=== PATIENT | male | born 1960 | race Caucasian/White ===

== ENCOUNTER 2016-09-08 07:48 | Day surgery (SDC) | payer MEDICARE, MEDICAID ==
[~2016-09-08 07:48] MED LIST: Bupivacaine 0.5% 50 ML MDV ONE
[2016-09-08] MEDS ORDERED: Lactated Ringers 1,000 ML IV SCH (08:30)
[2016-09-08] MEDS ORDERED: ceFAZolin 2 GM in Sodium Chloride 0.9% 50 ML IV ONE (09:00)
[2016-09-08] MEDS ORDERED: ceFAZolin 2 GM in Premix Bag 1 BAG IV ONE (09:00)
[2016-09-08] MEDS ORDERED: Propofol 200 MG/20 ML SDV ONE (11:44)
[2016-09-08] MEDS ORDERED: Midazolam 1 MG/ML 2 ML SDV ONE (11:45)
[2016-09-08] MEDS ORDERED: fentaNYL 100 MCG/2 ML SDV ONE (11:45)
[2016-09-08] MEDS ORDERED: Lidocaine 0.5% 50 ML SDV ONE (11:47)
[2016-09-08] MEDS ORDERED: Povidone-Iodine 10% Soln 118.25 ML Bottle ONE (12:05)
--- NOTE | 2016-09-08 12:51 | OR ---
DATE OF PROCEDURE: 09/08/2016 PREOPERATIVE DIAGNOSIS: Right ring finger trigger finger. POSTOPERATIVE DIAGNOSIS: Right ring finger trigger finger. PROCEDURE: Right ring finger trigger finger release. ANESTHESIA: [place] block. FLUID: Lactated Ringer solution. ESTIMATED BLOOD LOSS: Zero. COMPLICATIONS: None. SPECIMEN: None. DISCHARGE DISPOSITION: Stable to PACU. HISTORY AND INDICATION FOR THE PROCEDURE: The patient was seen preoperatively in the clinic. Previously, he had another surgery performed, A1 julieta release of his right ring finger. He stated this really never worked and has continued to bother him. He would like to taken care of. Risks and benefits of the procedure were explained to the patient. Informed consent was obtained. DETAILS OF PROCEDURE: The patient was seen preoperatively by myself and the Anesthesia staff in the preoperative holding area, where the operative site was marked. He was brought to the operative suite, where [place] block was administered. The right upper extremity was then prepped and draped in a sterile manner. Time-out was called identifying the correct patient, correct procedure, correct site, and antibiotics were ran within appropriate period of time. An incision was made over the A1 julieta longitudinally for approximately 1 cm. Self-retaining retractor was then used. I then used the knife to incise the remaining portion of the A1 julieta, which was more distal and I used a Ragnell for visualization to make sure that all the julieta was released. We then pulled the tendon out of the wound using a Ragnell. We then copiously irrigated with saline and closed with 3-0 horizontal mattress suture followed by sterile dressing. The patient then had the [place] block released and was taken to the PACU in stable condition. Ke Rodriguez DO /[id number]
[2016-09-08 13:52] VITALS: BP 129/68
== END 2016-09-08 14:03 | disposition home or self-care (01) ==
LOC: JP.SDS 07:48
PROVIDERS: ATTEND Orthopaedic Surgery
DX: M65.341 Trigger finger, right ring finger (principal); I10 Essential (primary) hypertension; G47.30 Sleep apnea, unspecified; K21.9 Gastro-esophageal reflux disease without esophagitis; G89.29 Other chronic pain; M54.9 Dorsalgia, unspecified; M19.90 Unspecified osteoarthritis, unspecified site; F41.9 Anxiety disorder, unspecified; F32.9 Major depressive disorder, single episode, unspecified; E66.9 Obesity, unspecified; E53.8 Deficiency of other specified B group vitamins; K56.60 Unspecified intestinal obstruction; Z79.899 Other long term (current) drug therapy; Z79.891 Long term (current) use of opiate analgesic; Z79.52 Long term (current) use of systemic steroids; Z90.49 Acquired absence of other specified parts of digestive tract; Z68.30 Body mass index [BMI] 30.0-30.9, adult; Z98.890 Other specified postprocedural states
CPT/HCPCS: 26055; J0690; J2250; J2704; J3010; J7050; J7120

== ENCOUNTER 2016-12-21 06:03 | Day surgery (SDC) | payer MEDICARE, MEDICAID ==
[2016-12-21] MEDS ORDERED: Bupivacaine 0.5% 50 ML MDV ONE (06:56)
[2016-12-21] MEDS ORDERED: Lidocaine 1% with EPINEPHrine 1:100,000 50 ML MDV ONE (06:57)
[2016-12-21] MEDS ORDERED: Dextrose 5%-Lactated Ringers 1,000 ML IV SCH (07:00)
[2016-12-21] MEDS ORDERED: fentaNYL 100 MCG/2 ML SDV ONE (07:08)
[2016-12-21] MEDS ORDERED: Propofol 200 MG/20 ML SDV ONE (07:09)
[2016-12-21] MEDS ORDERED: Midazolam 1 MG/ML 2 ML SDV ONE (07:09)
[2016-12-21] MEDS ORDERED: ceFAZolin 2 GM in Premix Bag 1 BAG IV SCH (07:45)
[2016-12-21] MEDS ORDERED: ceFAZolin 2 GM in Premix Bag 1 BAG IV ONE (08:00)
[2016-12-21 09:17] VITALS: BP 115/69
--- NOTE | 2016-12-21 15:18 | OR ---
DATE OF PROCEDURE: 12/21/2016 PREOPERATIVE DIAGNOSIS: Nodule posterior aspect of right elbow. POSTOPERATIVE DIAGNOSES: 1. Subfascial nodule of right elbow. 2. Hematoma adjacent to nodule of right elbow. OPERATIVE PROCEDURES: 1. Excision of subfascial nodule of right elbow (64453). 2. Drainage of hematoma adjacent to nodule of right elbow (24577). ANESTHESIA: IV sedation plus local. INDICATION FOR PROCEDURE: This is a 56-year-old presenting with some increasingly uncomfortable nodule located over the point of his right elbow. Plan is to proceed with excision of this. Potential risks including bleeding, infection, possible recurrence of the process were reviewed, and the patient wishes to proceed. DETAILS OF PROCEDURE: The patient was taken to the operating room and placed in supine position. After IV sedation was administered, the right forearm, elbow, and upper arm were prepped and draped with the elbow held in a flexed position. The area was anesthetized with 1% lidocaine mixed with Marcaine. Elliptical incision removing a thin layer of the overlying skin was then made and carried down through the skin and subcutaneous tissue. The plane of the nodule could be below the plane of the continuation of the muscular fascia. This was incised and roughly 1 cm nodule was then excised. This had associated with it a 6 mm hematoma as well, which was drained and excised along with the nodule. At that point, no further pathology appeared to be present. The area was closed with some 3-0 Vicryl stitch deep and then 5-0 Prolene skin stitch. Dressing was applied. The patient was taken to the recovery room in a satisfactory condition. Jose Rodriguez MD /[id number]
== END 2016-12-21 09:24 | disposition home or self-care (01) ==
LOC: JP.SDS 06:03
PROVIDERS: ATTEND Surgery
DX: D18.09 Hemangioma of other sites (principal); I10 Essential (primary) hypertension; G47.30 Sleep apnea, unspecified; K21.9 Gastro-esophageal reflux disease without esophagitis; F32.9 Major depressive disorder, single episode, unspecified; E66.9 Obesity, unspecified; Z90.49 Acquired absence of other specified parts of digestive tract; Z98.84 Bariatric surgery status; Z91.09 Other allergy status, other than to drugs and biological substances; F17.210 Nicotine dependence, cigarettes, uncomplicated; Z98.890 Other specified postprocedural states; Z68.30 Body mass index [BMI] 30.0-30.9, adult
CPT/HCPCS: 23930; 24076; 88305; J0690; J2250; J2704; J3010; J7042

== ENCOUNTER 2017-03-31 06:11 | Day surgery (SDC) | payer MEDICARE, MEDICAID ==
[~2017-03-31 06:11] MED LIST changes: -Bupivacaine 0.5% 50 ML MDV ONE; +Lactated Ringers 1,000 ML IV SCH
[2017-03-31] MEDS ORDERED: ceFAZolin 2 GM in Premix Bag 1 BAG IV ONE (06:30)
[2017-03-31] MEDS ORDERED: Povidone-Iodine 10% Soln 118.25 ML Bottle ONE (06:41)
[2017-03-31] MEDS ORDERED: Bupivacaine 0.5%/EPINEPHrine 1:200,000 50 ML MDV ONE (06:41)
[2017-03-31] MEDS ORDERED: Bupivacaine 0.5% 30 ML SDV ONE ×2 (08:41)
[2017-03-31] MEDS ORDERED: Midazolam 1 MG/ML 2 ML SDV ONE (08:44)
[2017-03-31] MEDS ORDERED: fentaNYL 250 MCG/5 ML SDV ONE (08:44)
[2017-03-31] MEDS ORDERED: Ondansetron 4 MG/2 ML SDV ONE (08:45)
[2017-03-31] MEDS ORDERED: Propofol 200 MG/20 ML SDV ONE (08:45)
[2017-03-31] MEDS ORDERED: Neostigmine Methylsulfate 1 MG/ML 5 ML Syringe ONE (08:45)
[2017-03-31] MEDS ORDERED: Succinylcholine 200 MG/10 ML MDV ONE (08:45)
[2017-03-31] MEDS ORDERED: Dexamethasone 4 MG/ML SDV ONE (08:45)
[2017-03-31] MEDS ORDERED: Glycopyrrolate 0.2 MG/ML 5 ML MDV ONE (08:45)
[2017-03-31] MEDS ORDERED: Rocuronium 50 MG/5 ML Vial ONE (08:45)
[2017-03-31] MEDS ORDERED: Lactated Ringers 1,000 ML ONE (12:10)
[2017-03-31] MEDS ORDERED: ePHEDrine 50 MG/ML SDV ONE (12:36)
[2017-03-31] MEDS ORDERED: EPINEPHrine 1 MG/ML SDV ONE (13:49)
[2017-03-31] MEDS ORDERED: Ketorolac 60 MG/2 ML SDV IM ONE (14:30)
--- NOTE | 2017-03-31 14:35 | OR ---
DATE OF PROCEDURE: 03/31/2017 PREOPERATIVE DIAGNOSES: Left shoulder impingement and rotator cuff tear, bicipital tendinitis, and synovitis. POSTOPERATIVE DIAGNOSES: Left shoulder impingement and rotator cuff tear, bicipital tendinitis, and synovitis. PROCEDURE: Left shoulder arthroscopy with subacromial decompression, partial synovectomy, and mini open rotator cuff repair. LEAN SIX SIGMA SENIOR SPECIALIST: LEON Skinner Physician school health assistant, Megan Piper NP, played an essential role in assisting in this case, helping to position the patient, retract structures as needed, as well as suturing and cutting sutures as indicated. Her presence improved patient's safety and decreased operative time. ANESTHESIA: General endotracheal intubation plus interscalene block on the left. COMPLICATIONS: None. SPECIMEN: None. DISCHARGE DISPOSITION: Stable to PACU. FLUID: Lactated Ringer's solution. ESTIMATED BLOOD LOSS: 25 mL. INDICATIONS: The patient is well known to me. He works for the hospital. He had failed nonoperative treatment of left shoulder pain and an MRI confirmed the above-mentioned diagnosis. Risks and benefits of the procedure were explained to the patient and informed consent was obtained. DESCRIPTION OF PROCEDURE: The patient was seen preoperatively by myself and the Anesthesia staff in the preop holding area where, the operative site was marked. He was brought to the operative suite by the Anesthesia staff, where general anesthesia was administered. He was placed into a beach-chair position. All extremities were found to be well padded. The patient was then prepped and draped in a sterile manner. Time-out was called identifying the correct patient, correct procedure, the correct site, and antibiotics had begun within appropriate period of time. Posterior portal was then made. I entered the joint. He had a massive rotator cuff tear with severe retraction. He also had bicipital tendinitis. I used a spinal needle placed my anterior portal and then entered it and then did partial debridement of the biceps tendon with a shaver and ablation unit and then did partial synovectomy due to the synovitis that was present. I then removed my arthroscope and then entered the subacromial space, very little bursitis was present. I did use a shaver to remove part of the bursa and delineate the acromion. He had a type 2 acromion. I then used an ablation unit to delineate this and then used a harris to remove the hook of the acromion and then used an ablation unit to close, take care of little bit of bleeding. I then removed as much fluid as I could from the joint and then re-prepped using chlorhexidine and then made an incision approximately 5 cm from the distal tip of the anterior acromion and then went through the anterior raphae through the anterior and middle bellies of the deltoid. Bleeding during that portion of the case was controlled with Bovie electrocautery. I used a Gelpi for retraction. It was obvious at that point that Mr. Polk had a massive rotator cuff tear involving the supraspinatus and infraspinatus only part of the teres major was still attached posteriorly. I used 2 different anchors with both pulled out. I believe the patient had poor bone secondary to previous gastric bypass surgery. I then under drilled then used a JuggerKnot anchor and started pulling the cuff anteriorly. I used a suture passer as well as passed with the needles attached. I then placed another JuggerKnot anchor just for more security and could not really bring it any further anterior, but then tied my ends together. There was a fairly large Knot stack, but I believe that the risks of pullout way greater than the risk of irritation from the Knot stack. We then copiously irrigated with saline and then closed with a Stratafix and 3-0 nylon and then placed a sterile dressing. The patient was then transferred to his hospital bed and then placed him into an abduction pillow brace, and taken to the PACU in stable condition. Ke Rodriguez DO /[id number]
[2017-03-31 15:49] VITALS: BP 111/70
== END 2017-03-31 15:25 | disposition home or self-care (01) ==
LOC: JP.SDS 06:11
PROVIDERS: ATTEND Orthopaedic Surgery
DX: M75.42 Impingement syndrome of left shoulder (principal); M75.102 Unspecified rotator cuff tear or rupture of left shoulder, not specified as traumatic; I10 Essential (primary) hypertension; F17.210 Nicotine dependence, cigarettes, uncomplicated; M75.22 Bicipital tendinitis, left shoulder; E66.9 Obesity, unspecified; Z68.30 Body mass index [BMI] 30.0-30.9, adult; H54.7 Unspecified visual loss; K21.9 Gastro-esophageal reflux disease without esophagitis; K80.20 Calculus of gallbladder without cholecystitis without obstruction; E53.8 Deficiency of other specified B group vitamins; G89.29 Other chronic pain; M54.9 Dorsalgia, unspecified; M19.90 Unspecified osteoarthritis, unspecified site; F32.9 Major depressive disorder, single episode, unspecified; Z79.899 Other long term (current) drug therapy; Z90.89 Acquired absence of other organs; Z91.048 Other nonmedicinal substance allergy status; Z97.4 Presence of external hearing-aid
CPT/HCPCS: 29820; 29826; 29827; J0171; J0690; J1100; J1885; J2250; J2405; J2704; J2710; J3010; J7120; 27328; 29822; C1713; J0330

== ENCOUNTER 2018-04-03 09:23 | Emergency (ER) | payer MEDICARE, MEDICAID ==
[2018-04-03 09:53] VITALS: BP 163/89
--- NOTE | 2018-04-03 11:09 | EDM.PDOC ---
ED HPI GENERAL MEDICAL PROBLEM - General Chief Complaint: Eye Problems Stated Complaint: HEADACH ABOVE THE RIGHT EYE Time Seen by Provider: 04/03/18 11:08 Source of Information: Reports: Patient History Limitations: Reports: No Limitations - History of Present Illness INITIAL COMMENTS - FREE TEXT/NARRATIVE: pt arrived with pain behind his left eye. This has affected his vision at times. He states this started about 3 days ago. Onset: Gradual, Other (last 3 days. ) Duration: Hour(s): Location: Reports: Face Associated Symptoms: Reports: Headaches, Other (pt has pain behind the left eye. ) Left Eye Pain Score (Numeric/FACES): 8 - Related Data Allergies Allergy/AdvReac Type Severity Reaction Status Date / Time zinc oxide Allergy Rash Verified 04/03/18 10:05 foam tape Allergy Rash Uncoded 04/03/18 10:05 Home Meds: Home Meds Ca Citrate/Mgox/Vit D3/B6/Min [Calcium Citrate Plus Tablet] 1 each PO BID [History] Cyanocobalamin (Vitamin B-12) [B-12] 2,500 mcg SL DAILY 12/22/13 [History] Omeprazole [Prilosec] 20 mg PO DAILY 12/22/13 [History] Ped Multivit #17/Iron Fumarate [Pv Kids Vitamins+Iron Tab Chew] 1 tab PO BID [History] Cyanocobalamin (Vitamin B12) [Vitamin B12] 1,000 mcg IM Q30D 05/03/14 [History] Cholecalciferol (Vitamin D3) [Vitamin D] 2,500 units PO DAILY 05/09/15 [History] Ascorbic Acid [Vitamin C] 1,000 mg PO BID 03/19/16 [History] Citalopram Hydrobromide [Celexa] 40 mg PO DAILY 03/19/16 [History] Ergocalciferol (Vitamin D2) [Vitamin D] 2,500 unit PO DAILY 03/19/16 [History] Hydrocodone/Acetaminophen [[place]elope 10-325] 1 - 2 tab PO Q12H PRN 09/04/16 [History ] Vitamin B Complex 1 tab PO DAILY 09/04/16 [History] Celecoxib 200 mg PO DAILY 03/08/17 [History] Melatonin 10 mg PO BEDTIME 02/09/18 [History] Past Medical History - Past Health History Medical/Surgical History: Denies Medical/Surgical History HEENT History: Reports: Hard of Hearing, Impaired Vision Other HEENT History: wears glasses and hearing aides broken jaw Cardiovascular History: Reports: Heart Murmur, Hypertension, SOB on Exertion Other Cardiovascular History: hypertension resolved with RNY surgery 4 years ago Respiratory History: Reports: Intubation, Previous, Sleep Apnea Other Respiratory History: no trouble with sleep apnea after RNY surgery. Gastrointestinal History: Reports: Bowel Obstruction, Cholelithiasis, GERD Genitourinary History: Reports: Other (See Below) Other Genitourinary History: after appendectomy kidney infection Musculoskeletal History: Reports: Back Pain, Chronic, Gout, Osteoarthritis, Other (See Below) Other Musculoskeletal History: s/p lt rotator cuff repair Neurological History: Reports: Concussion Psychiatric History: Reports: Depression Endocrine/Metabolic History: Reports: Obesity/BMI 30+, Vitamin D Deficiency Other Endocrine/Metabolic History: blood sugar high at times before gastric bypass Hematologic History: Reports: B12 Deficiency Dermatologic History: Reports: Psoriasis, Other (See Below) Other Dermatologic History: psoriasis resolved after weight loss - Infectious Disease History Infectious Disease History: Reports: Chicken Pox - Past Surgical History HEENT Surgical History: Reports: Oral Surgery GI Surgical History: Reports: Appendectomy, Bariatric Procedure, Cholecystectomy , Colonoscopy, Hernia, Abdominal, Small Bowel Male Surgical History: Reports: None Neurological Surgical History: Reports: None Musculoskeletal Surgical History: Reports: Other (See Below) Other Musculoskeletal Surgeries/Procedures:: trigger finger repair. repair rotator cuff Social & Family History - Tobacco Use Smoking Status *Q: Current Every Day Smoker Years of Tobacco use: 30 Packs/Tins Daily: 0.5 - Caffeine Use Caffeine Use: Reports: Coffee, Energy Drinks - Recreational Drug Use Recreational Drug Use: No - Living Situation & Occupation Living situation: Reports: Single ED ROS GENERAL - Review of Systems Review Of Systems: See Below Constitutional: Reports: No Symptoms HEENT: Reports: Other (tender over the left mxillary sinus. ) Respiratory: Reports: No Symptoms Cardiovascular: Reports: No Symptoms Endocrine: Reports: No Symptoms GI/Abdominal: Reports: No Symptoms : Reports: No Symptoms Musculoskeletal: Reports: No Symptoms Skin: Reports: No Symptoms ED EXAM GENERAL W FULL EYE - Physical Exam Exam: See Below Text/Narrative:: pt has pain over the left maxillary sinus and ccasionally he is getting blurring of the vision in the left eye. Exam Limited By: No Limitations General Appearance: Alert, Mild Distress, Other ( vision check is good. ) Ears: Normal TMs Nose: Normal Inspection Throat/Mouth: Normal Inspection Head: Atraumatic Neck: Normal Inspection Respiratory/Chest: No Respiratory Distress Cardiovascular: Normal Peripheral Pulses (Male) Exam: Deferred (Female) Exam: Deferred Rectal (Males) Exam: Deferred Rectal (Female) Exam: Deferred Back Exam: Normal Inspection Extremities: Normal Inspection Course - Vital Signs Last Recorded V/S: Last Vital Signs Temp 35.5 C 04/03/18 09:53 Pulse 68 04/03/18 09:53 Resp 14 04/03/18 09:53 BP 163/89 H 04/03/18 09:53 Pulse Ox 96 04/03/18 09:53 - Orders/Labs/Meds Labs: Laboratory Tests 04/03/18 04/03/18 Range/Units 10:43 10:43 WBC 7.1 (4.5-11.0) K/uL RBC 5.05 (4.30-5.90) M/uL Hgb 14.2 (12.0-15.0) g/dL Hct 45.0 (40.0-54.0) % MCV 89 (80-98) fL MCH 28 (27-31) pg MCHC 32 (32-36) % Plt Count 232 (150-400) K/uL Neut % (Auto) 63 (36-66) % Lymph % (Auto) 23 L (24-44) % Dougherty % (Auto) 11 H (2-6) % Eos % (Auto) 2 (2-4) % Baso % (Auto) 0 (0-1) % C-Reactive Protein 0.30 (0.0-0.3) mg/dL Meds: Medications Discontinued Medications Generic Name Dose Route Start Last Admin Trade Name Freq PRN Reason Stop Dose Admin Ceftriaxone Sodium 1 gm/ 0 gm 04/03/18 12:22 04/03/18 12:34 Lidocaine HCl 2.1 ml IM 04/03/18 12:23 1 inj ONETIME ONE Administration - Re-Assessments/Exams Free Text/Narrative Re-Assessment/Exam: 04/03/18 12:30 pt had a castro view which did not have any fluid levels. He had a cat scan of the head which was neg. Will treat as a sinusitis. Departure - Departure Time of Disposition: 12:24 Disposition: Home, Self-Care 01 Condition: Fair Clinical Impression: Left maxillary sinusitis - Discharge Information Instructions: Sinusitis, Adult Referrals: Kenan Soliz MD [Primary Care Provider] - Forms: ED Department Discharge Care Plan Goals: cool mist humidifier, augmentin 875 bid, rtc if increased symptoms. use yogurt or probiotic while on the antibiotic.
[2018-04-03] MEDS ORDERED: cefTRIAXone 1 GM, Lidocaine 1% 2.1 ML IM ONE ×2 (12:22)
--- NOTE | 2018-04-04 13:02 | CR ---
Dorman' view The paranasal sinuses demonstrate normal aeration. There is no consolidation. There is no mucosal thickening. Impression: 1. Negative exam.
== END 2018-04-03 13:00 | disposition home or self-care (01) ==
LOC: JP.ED 09:23
DX: J32.0 Chronic maxillary sinusitis (principal); I10 Essential (primary) hypertension; F32.9 Major depressive disorder, single episode, unspecified; E66.9 Obesity, unspecified; L40.9 Psoriasis, unspecified; F17.210 Nicotine dependence, cigarettes, uncomplicated; Z88.8 Allergy status to other drugs, medicaments and biological substances; Z79.899 Other long term (current) drug therapy
CPT/HCPCS: 36415; 70210; 70450; 85025; 86140; 96372; 99285; J0696

== ENCOUNTER 2018-07-28 10:27 | Emergency (ER) | payer MEDICARE, MEDICAID ==
[2018-07-28 10:43] VITALS: BP 135/98
--- NOTE | 2018-07-28 11:01 | EDM.PDOC ---
ED HPI GENERAL MEDICAL PROBLEM - General Chief Complaint: Skin Complaint Stated Complaint: INFECTED RING FINGER Time Seen by Provider: 07/28/18 10:45 Source of Information: Reports: Patient, Old Records, RN History Limitations: Reports: No Limitations - History of Present Illness INITIAL COMMENTS - FREE TEXT/NARRATIVE: 58 yo male accidentally punctured his L ring finger while working on his car 2 days ago. Now the finger in the area of the puncture is slightly swollen. He has been soaking it and apply hydrogen peroxide. Onset: Sudden Onset Date: 07/26/18 Duration: Day(s): (2), Getting Worse Location: Reports: Upper Extremity, Left Quality: Reports: Dull Severity: Mild Improves with: Reports: Rest Worsens with: Reports: Other (touching it), Movement Context: Reports: Trauma Associated Symptoms: Reports: No Other Symptoms Treatments KENNEL MANAGER: Reports: Other (see below) (See HPI) - Related Data Allergies Allergy/AdvReac Type Severity Reaction Status Date / Time zinc oxide Allergy Rash Verified 06/15/18 11:35 foam tape Allergy Rash Uncoded 06/15/18 11:35 Home Meds: Home Meds Ca Citrate/Mgox/Vit D3/B6/Min [Calcium Citrate Plus Tablet] 1 each PO BID [History] Cyanocobalamin (Vitamin B-12) [B-12] 2,500 mcg SL DAILY 12/22/13 [History] Omeprazole [Prilosec] 20 mg PO DAILY 12/22/13 [History] Ped Multivit #17/Iron Fumarate [Pv Kids Vitamins+Iron Tab Chew] 1 tab PO BID [History] Cyanocobalamin (Vitamin B12) [Vitamin B12] 1,000 mcg IM Q30D 05/03/14 [History] Cholecalciferol (Vitamin D3) [Vitamin D] 2,500 units PO DAILY 05/09/15 [History] Ascorbic Acid [Vitamin C] 1,000 mg PO BID 03/19/16 [History] Citalopram Hydrobromide [Celexa] 40 mg PO DAILY 03/19/16 [History] Ergocalciferol (Vitamin D2) [Vitamin D] 2,500 unit PO DAILY 03/19/16 [History] Hydrocodone/Acetaminophen [[place] 10-325] 1 - 2 tab PO Q12H PRN 09/04/16 [History ] Vitamin B Complex 1 tab PO DAILY 09/04/16 [History] Cephalexin [Keflex] 500 mg PO QID #30 capsule 07/28/18 [Rx] Lisinopril 2.5 mg PO DAILY 07/28/18 [History] Past Medical History - Past Health History Medical/Surgical History: Denies Medical/Surgical History HEENT History: Reports: Hard of Hearing, Impaired Vision Other HEENT History: wears glasses and hearing aides broken jaw Cardiovascular History: Reports: Heart Murmur, Hypertension, SOB on Exertion Other Cardiovascular History: hypertension resolved with RNY surgery 4 years ago Respiratory History: Reports: Intubation, Previous, Sleep Apnea Other Respiratory History: no trouble with sleep apnea after RNY surgery. Gastrointestinal History: Reports: Bowel Obstruction, Cholelithiasis, GERD Genitourinary History: Reports: Other (See Below) Other Genitourinary History: after appendectomy kidney infection Musculoskeletal History: Reports: Back Pain, Chronic, Gout, Osteoarthritis, Other (See Below) Other Musculoskeletal History: left shoulder pain. s/p lt rotator cuff repair Neurological History: Reports: Concussion Psychiatric History: Reports: Depression Endocrine/Metabolic History: Reports: Obesity/BMI 30+, Vitamin D Deficiency Other Endocrine/Metabolic History: blood sugar high at times before gastric bypass Hematologic History: Reports: B12 Deficiency Immunologic History: Reports: None Oncologic (Cancer) History: Reports: None Dermatologic History: Reports: Psoriasis, Other (See Below) Other Dermatologic History: psoriasis resolved after weight loss - Infectious Disease History Infectious Disease History: Reports: Chicken Pox - Past Surgical History Head Surgeries/Procedures: Reports: None HEENT Surgical History: Reports: Oral Surgery Cardiovascular Surgical History: Reports: None Respiratory Surgical History: Reports: None GI Surgical History: Reports: Appendectomy, Bariatric Procedure, Cholecystectomy , Colonoscopy, Hernia, Abdominal, Small Bowel Male Surgical History: Reports: None Endocrine Surgical History: Reports: None Neurological Surgical History: Reports: None Musculoskeletal Surgical History: Reports: Other (See Below) Other Musculoskeletal Surgeries/Procedures:: trigger finger repair. repair rotator cuff Dermatological Surgical History: Reports: None Social & Family History - Tobacco Use Smoking Status *Q: Unknown Ever Smoked - Caffeine Use Caffeine Use: Reports: Soda - Living Situation & Occupation Living situation: Reports: Single ED ROS GENERAL - Review of Systems Review Of Systems: See Below Constitutional: Reports: No Symptoms Musculoskeletal: Reports: Hand Pain (L ring finger pain) Skin: Reports: Erythema (proximal phalanx of the L ring finger), Wound ( puncture to the proximal L ring finger) Neurological: Reports: No Symptoms ED EXAM, SKIN/RASH Exam: See Below Exam Limited By: No Limitations General Appearance: Alert, WD/WN, No Apparent Distress, Obese Extremities: Pedal Edema (slight swelling of the proximal L ring finger), Increased Warmth (proximal L ring finger), Redness (proximal L ring finger). No : No Pedal Edema Neurological: Alert, Oriented, CN II-XII Intact, Normal Cognition, No Motor/ Sensory Deficits Skin: Wound/Incision (puncture to the prox. L ring finger) Location, Skin: Upper Extremity, Left Characteristics: Erythematous Associated features: Warmth, Tenderness. No: Lymphangitis Lymphatic: No Adenopathy Course - Vital Signs Last Recorded V/S: Last Vital Signs Temp 37.1 C 07/28/18 10:48 Pulse 85 07/28/18 10:48 Resp 16 07/28/18 10:48 BP 135/98 H 07/28/18 10:48 Pulse Ox 99 07/28/18 10:48 Departure - Departure Time of Disposition: 11:10 Disposition: Home, Self-Care 01 Condition: Fair Clinical Impression: Finger infection - Discharge Information *PRESCRIPTION DRUG MONITORING PROGRAM REVIEWED*: No *COPY OF PRESCRIPTION DRUG MONITORING REPORT IN PATIENT YANCY: No Prescriptions: Cephalexin [Keflex] 500 mg PO QID #30 capsule Referrals: Kenan Soliz MD [Primary Care Provider] - Additional Instructions: Continue your present cares. Add cephalexin as directed. Take acetaminophen as needed for pain relief. Recheck in the clinic by the end of the day tomorrow.
== END 2018-07-28 11:06 | disposition home or self-care (01) ==
LOC: JP.ED 10:27
DX: S61.235A Puncture wound without foreign body of left ring finger without damage to nail, initial encounter (principal); L08.9 Local infection of the skin and subcutaneous tissue, unspecified; I10 Essential (primary) hypertension; Z88.8 Allergy status to other drugs, medicaments and biological substances; Z79.899 Other long term (current) drug therapy; X58.XXXA Exposure to other specified factors, initial encounter
CPT/HCPCS: 99282

== ENCOUNTER → 2018-08-01 | Day surgery (SDC) | payer MEDICARE, MEDICAID ==
[~2018-08-01] MED LIST changes: +Bupivacaine 0.5% 50 ML MDV ONE; +Dexamethasone 4 MG/ML SDV ONE; +Glycopyrrolate 0.2 MG/ML 5 ML MDV ONE; -Lactated Ringers 1,000 ML IV SCH; +Lactated Ringers 1,000 ML ONE; +Neostigmine Methylsulfate 1 MG/ML 5 ML Syringe ONE; +Ondansetron 4 MG/2 ML SDV ONE; +Propofol 200 MG/20 ML SDV ONE; +Rocuronium 50 MG/5 ML Vial ONE; +Succinylcholine 200 MG/10 ML MDV ONE; +fentaNYL 250 MCG/5 ML SDV ONE
[2018-08-01] MEDS: Nozin Nasal Sanitizer NASBOTH ONE (06:11)
[2018-08-01] MEDS: Lactated Ringers 1,000 ML IV SCH (06:11)
[2018-08-01] MEDS: ceFAZolin 2 GM in Premix Bag 1 BAG IV ONE (07:45)
[2018-08-01] MEDS: Acetaminophen/oxyCODONE 325-5 MG Tab PO ONE (10:52)
[2018-08-01 10:53] VITALS: BP 141/84
--- NOTE | 2018-08-02 12:26 | OR ---
DATE OF PROCEDURE: 08/01/2018 PREOPERATIVE DIAGNOSIS: Large chronic rotator cuff tear, left shoulder. POSTOPERATIVE DIAGNOSIS: Massive chronic rotator cuff tear, left shoulder. PROCEDURE: Open partial repair, infraspinatus, left rotator cuff. ANESTHESIA: General with interscalene block. INDICATIONS: Mr. Polk is a 58-year-old gentleman with a history of progressive pain and weakness in his left shoulder and arm. He has a history of a previous large rotator cuff tear that was repaired. This repair went on to fail. He has had persistent difficulty with any kind of overhead reaching or lifting. MRI did reveal a large tear with retraction. There did appear however to be some cuff remaining that may be repairable. He is aware that this is difficult procedure with a high failure rate. Risks, benefits, and potential complications of the procedure were discussed at some length. He wished to proceed. DESCRIPTION OF PROCEDURE: After adequate anesthesia was obtained, the patient was placed supine in a modified beach-chair position. The left arm and shoulder were then prepped and draped in a sterile fashion. A previous lateral incision was utilized and carried down through the subcutaneous tissues. Small subcutaneous flaps were created anteriorly and posteriorly. The raphae of the deltoid muscle was identified and split in line with its fibers. The deltoid was detached for a short distance from the acromion. Subacromial space was entered. This revealed a massive tear of the rotator cuff. A free piece of suture was identified on the greater tuberosity. The posterior limb of the cuff consisting of the infraspinatus was identified, which had a suture knot at the end. Biceps tendon was found to be intact. The anterior leaf and portions of the supraspinous tendon were completely retracted back to the glenoid rim and beyond. There was no adequate tissue anteriorly to mobilize. After mobilizing the posterior portion, it was determined that at least a partial repair could be accomplished providing some coverage for the humeral head. The superior surface of the tuberosity was roughened with a rongeur. Two Mitek Healix suture anchors were placed. The humerus was externally rotated slightly beyond neutral, and the cuff was mobilized anteriorly and all 4 limbs of the posterior suture anchor were then brought up through the tendon. A separate suture of FiberWire was placed in a locking fashion in the edge of the tendon and used for retraction and positioning. The 4 limbs of the anterior suture anchor were then brought through the edge of the tendon. The sutures were then tied. This did provide some coverage of the posterior humeral head and the tuberosity just up to the biceps groove. The 2 suture limbs from the FiberWire stitch were utilized along with one set of sutures from the posterior suture anchor. The remaining 2 sets of sutures were cut. Awl was used to make a tunnel for a knotless anchor off the edge of the acromion. The limbs from the posterior suture and the free suture in the edge of the tendon were then brought through the anchor, and the anchor was secured into the tuberosity providing a suture bridge and a double-row repair. All sutures were then cut. The arm was then taken through range of motion and determined that moderate tension was on the repair with the arm in full internal rotation, but minimal tension was present with the arm at approximately 30 degrees of internal rotation, which is approximately the position it would set on the sling shot sling. It was irrigated. Small portion of the lateral edge of the acromion was debrided with a rongeur to further aid in decompression, and the deltoid was then repaired in a [id number] fashion with 0 Vicryl. The skin was closed with 2-0 Vicryl and a running 3-0 Monocryl. Steri-Strips were applied. Sterile dressing was then placed. The patient tolerated the procedure. There were no complications. He was taken from the operating room in a stable condition. Sammy Anderson MD /[id number] [facility]
== END ==
LOC: JP.SDS 05:38
PROVIDERS: ATTEND Specialist
DX: M75.102 Unspecified rotator cuff tear or rupture of left shoulder, not specified as traumatic (principal); I10 Essential (primary) hypertension; F41.9 Anxiety disorder, unspecified; F17.200 Nicotine dependence, unspecified, uncomplicated; L40.9 Psoriasis, unspecified; E66.01 Morbid (severe) obesity due to excess calories; Z68.41 Body mass index [BMI] 40.0-44.9, adult; Z88.1 Allergy status to other antibiotic agents; Z98.84 Bariatric surgery status; Z91.048 Other nonmedicinal substance allergy status; Z79.899 Other long term (current) drug therapy
CPT/HCPCS: 23412; 36415; 80048; 85027; A9270; C1713; J0330; J0690; J1100; J2405; J2704; J2710; J3010; J3490; J7120

== ENCOUNTER 2018-09-10 22:18 | Emergency (ER) | payer MEDICARE, MEDICAID ==
[2018-09-10 22:36] VITALS: BP 146/84
--- NOTE | 2018-09-10 23:24 | EDM.PDOC ---
ED HPI GENERAL MEDICAL PROBLEM - General Chief Complaint: Bite:Animal, Insect Stated Complaint: BUG BITE LEFT HIP Time Seen by Provider: 09/10/18 23:11 Source of Information: Reports: Patient History Limitations: Reports: No Limitations - History of Present Illness INITIAL COMMENTS - FREE TEXT/NARRATIVE: He was bitten or stung by something while mowing grass yesterday. This morning he noticed a little bit he red manfred to the lateral side of his left thigh. Tonight it is become a large warm red area it's firm and the middle. When the bite happened he said it was a sudden sharp stinging feeling he felt. He does not think it was a tick. Left Hip Pain Score (Numeric/FACES): 4 - Related Data Allergies Allergy/AdvReac Type Severity Reaction Status Date / Time zinc oxide Allergy Rash Verified 09/10/18 22:56 foam tape Allergy Rash Uncoded 09/10/18 22:56 Home Meds: Home Meds Ca Citrate/Mgox/Vit D3/B6/Min [Calcium Citrate Plus Tablet] 1 each PO BID [History] Cyanocobalamin (Vitamin B-12) [B-12] 2,500 mcg SL DAILY 12/22/13 [History] Omeprazole [Prilosec] 20 mg PO BID 12/22/13 [History] Ped Multivit #17/Iron Fumarate [Pv Kids Vitamins+Iron Tab Chew] 1 tab PO BID [History] Cyanocobalamin (Vitamin B12) [Vitamin B12] 1,000 mcg IM Q30D 05/03/14 [History] Cholecalciferol (Vitamin D3) [Vitamin D] 2,500 units PO DAILY 05/09/15 [History] Ascorbic Acid [Vitamin C] 1,000 mg PO BID 03/19/16 [History] Citalopram Hydrobromide [Celexa] 40 mg PO DAILY 03/19/16 [History] Ergocalciferol (Vitamin D2) [Vitamin D] 2,500 unit PO DAILY 03/19/16 [History] Hydrocodone/Acetaminophen [[place] 10-325] 1 - 2 tab PO Q12H PRN 09/04/16 [History ] Vitamin B Complex 1 tab PO DAILY 09/04/16 [History] Lisinopril 5 mg PO DAILY 07/28/18 [History] Cephalexin [Keflex] 500 mg PO Q6HR 08/01/18 [History] Sulfamethoxazole/Trimethoprim [Septra DS] 1 tab PO BID 08/01/18 [History] oxyCODONE HCl/Acetaminophen [Percocet 5-325 mg Tablet] 1 each PO Q6HR PRN #36 tablet 08/09/18 [Rx] oxyCODONE HCl/Acetaminophen [Percocet 5-325 mg Tablet] 1 each PO Q6HR PRN #36 tablet 09/01/18 [Rx] Past Medical History - Past Health History Medical/Surgical History: Denies Medical/Surgical History HEENT History: Reports: Hard of Hearing, Impaired Vision Other HEENT History: wears glasses and hearing aides broken jaw Cardiovascular History: Reports: Heart Murmur, Hypertension, SOB on Exertion Other Cardiovascular History: hypertension resolved with RNY surgery 4 years ago Respiratory History: Reports: Intubation, Previous, Sleep Apnea Other Respiratory History: no trouble with sleep apnea after RNY surgery. Gastrointestinal History: Reports: Bowel Obstruction, Cholelithiasis, GERD Genitourinary History: Reports: Other (See Below) Other Genitourinary History: after appendectomy kidney infection Musculoskeletal History: Reports: Back Pain, Chronic, Gout, Osteoarthritis, Other (See Below) Other Musculoskeletal History: left shoulder pain. s/p lt rotator cuff repair Neurological History: Reports: Concussion Psychiatric History: Reports: Depression Endocrine/Metabolic History: Reports: Obesity/BMI 30+, Vitamin D Deficiency Other Endocrine/Metabolic History: blood sugar high at times before gastric bypass Hematologic History: Reports: B12 Deficiency Immunologic History: Reports: None Oncologic (Cancer) History: Reports: None Dermatologic History: Reports: Psoriasis, Other (See Below) Other Dermatologic History: psoriasis resolved after weight loss - Infectious Disease History Infectious Disease History: Reports: Chicken Pox - Past Surgical History Head Surgeries/Procedures: Reports: None HEENT Surgical History: Reports: Oral Surgery Cardiovascular Surgical History: Reports: None Respiratory Surgical History: Reports: None GI Surgical History: Reports: Appendectomy, Bariatric Procedure, Cholecystectomy , Colonoscopy, Hernia, Abdominal, Small Bowel Male Surgical History: Reports: None Endocrine Surgical History: Reports: None Neurological Surgical History: Reports: None Musculoskeletal Surgical History: Reports: Other (See Below) Other Musculoskeletal Surgeries/Procedures:: trigger finger repair. repair rotator cuff Dermatological Surgical History: Reports: None Social & Family History - Family History Family Medical History: Noncontributory - Tobacco Use Smoking Status *Q: Unknown Ever Smoked Second Hand Smoke Exposure: No - Caffeine Use Caffeine Use: Reports: Coffee - Recreational Drug Use Recreational Drug Use: No - Living Situation & Occupation Living situation: Reports: Single ED ROS GENERAL - Review of Systems Review Of Systems: ROS reveals no pertinent complaints other than HPI. ED EXAM, ANIMAL BITE - Physical Exam Exam: See Below Exam Limited By: No Limitations General Appearance: Alert, Obese Extremities: Other (There is a reddened indurated area approximately 10 cm in diameter to the lateral aspect of the left mid thigh. It's deep red warm raised and firm area it's unclear if there is a central bite manfred or sting manfred or not) Course - Vital Signs Last Recorded V/S: Last Vital Signs Temp 37.1 C 09/10/18 23:05 Pulse 82 09/10/18 23:05 Resp 16 09/10/18 23:05 BP 146/84 H 09/10/18 23:05 Pulse Ox 97 09/10/18 23:05 Departure - Departure Time of Disposition: 23:23 Disposition: Home, Self-Care 01 Condition: Fair Clinical Impression: Cellulitis of left thigh, Insect sting - Discharge Information Referrals: Kenan Soliz MD [Primary Care Provider] - Additional Instructions: Take Augmentin 875 mg twice daily for 5-7 days. Take the first dose tonight. No follow-up is needed if it's obviously getting better by Wednesday. Otherwise see your Dr. on Wednesday. At any time if it's getting worse return to the ER.
== END 2018-09-10 23:30 | disposition home or self-care (01) ==
LOC: JP.ED 22:18
DX: S70.362A Insect bite (nonvenomous), left thigh, initial encounter (principal); L03.116 Cellulitis of left lower limb; I10 Essential (primary) hypertension; K21.9 Gastro-esophageal reflux disease without esophagitis; M19.90 Unspecified osteoarthritis, unspecified site; M10.9 Gout, unspecified; F32.9 Major depressive disorder, single episode, unspecified; E66.9 Obesity, unspecified; Z90.49 Acquired absence of other specified parts of digestive tract; Z98.890 Other specified postprocedural states; Z98.84 Bariatric surgery status; Z91.09 Other allergy status, other than to drugs and biological substances; Z79.899 Other long term (current) drug therapy; W57.XXXA Bitten or stung by nonvenomous insect and other nonvenomous arthropods, initial encounter
CPT/HCPCS: 99283

== ENCOUNTER 2018-09-11 01:13 | Emergency (ER) | payer MEDICARE, MEDICAID ==
[2018-09-11] MEDS ORDERED: diphenhydrAMINE 50 MG/ML SDV IVPUSH ONE (01:20)
[2018-09-11] MEDS ORDERED: methylPREDNISolone Sodium Succinate 125 MG/2 ML SDV IVPUSH ONE (01:20)
[2018-09-11] MEDS ORDERED: diphenhydrAMINE 50 MG/ML SDV ONE (01:22)
[2018-09-11] MEDS ORDERED: methylPREDNISolone Sodium Succinate 125 MG/2 ML SDV ONE (01:22)
[2018-09-11 01:44] VITALS: BP 138/77
--- NOTE | 2018-09-11 04:46 | EDM.PDOC ---
ED HPI GENERAL MEDICAL PROBLEM - General Chief Complaint: Allergic Reaction Stated Complaint: ALLERGIC REACTION TO ANTIBIOTICS Time Seen by Provider: 09/11/18 01:16 Source of Information: Reports: Patient History Limitations: Reports: No Limitations - History of Present Illness INITIAL COMMENTS - FREE TEXT/NARRATIVE: This man was seen earlier tonight for cellulitis of the left thigh which seems to have been caused by some kind of a insect bite or sting. He was prescribed Augmentin. Within minutes after taking the first dose he began to have itching skin turned red and felt hot. Eventually he felt like his lips were swelling. He did not have any Benadryl to take so came to the ER. He had called here a little bit prior to that and told to take Benadryl but said she didn't have any Benadryl he decided to come on and to the hospital. 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 (see below) Other Treatments ROBOTICS ENGINEER: Augmentin - Related Data Allergies Allergy/AdvReac Type Severity Reaction Status Date / Time amoxicillin [From Augmentin] Allergy Hives Verified 09/11/18 00:45 clavulanic acid Allergy Hives Verified 09/11/18 00:45 [From Augmentin] zinc oxide Allergy Rash Verified 09/10/18 22:56 foam tape Allergy Rash Uncoded 09/10/18 22:56 Home Meds: Home Meds Ca Citrate/Mgox/Vit D3/B6/Min [Calcium Citrate Plus Tablet] 1 each PO BID [History] Cyanocobalamin (Vitamin B-12) [B-12] 2,500 mcg SL DAILY 12/22/13 [History] Omeprazole [Prilosec] 20 mg PO BID 12/22/13 [History] Ped Multivit #17/Iron Fumarate [Pv Kids Vitamins+Iron Tab Chew] 1 tab PO BID [History] Cyanocobalamin (Vitamin B12) [Vitamin B12] 1,000 mcg IM Q30D 05/03/14 [History] Cholecalciferol (Vitamin D3) [Vitamin D] 2,500 units PO DAILY 05/09/15 [History] Ascorbic Acid [Vitamin C] 1,000 mg PO BID 03/19/16 [History] Citalopram Hydrobromide [Celexa] 40 mg PO DAILY 03/19/16 [History] Ergocalciferol (Vitamin D2) [Vitamin D] 2,500 unit PO DAILY 03/19/16 [History] Hydrocodone/Acetaminophen [[place] 10-325] 1 - 2 tab PO Q12H PRN 09/04/16 [History ] Vitamin B Complex 1 tab PO DAILY 09/04/16 [History] Lisinopril 5 mg PO DAILY 07/28/18 [History] Sulfamethoxazole/Trimethoprim [Septra DS] 1 tab PO BID 08/01/18 [History] Past Medical History - Past Health History Medical/Surgical History: Denies Medical/Surgical History HEENT History: Reports: Hard of Hearing, Impaired Vision Other HEENT History: wears glasses and hearing aides broken jaw Cardiovascular History: Reports: Heart Murmur, Hypertension, SOB on Exertion Other Cardiovascular History: hypertension resolved with RNY surgery 4 years ago Respiratory History: Reports: Intubation, Previous, Sleep Apnea Other Respiratory History: no trouble with sleep apnea after RNY surgery. Gastrointestinal History: Reports: Bowel Obstruction, Cholelithiasis, GERD Genitourinary History: Reports: Other (See Below) Other Genitourinary History: after appendectomy kidney infection Musculoskeletal History: Reports: Back Pain, Chronic, Gout, Osteoarthritis, Other (See Below) Other Musculoskeletal History: left shoulder pain. s/p lt rotator cuff repair Neurological History: Reports: Concussion Psychiatric History: Reports: Depression Endocrine/Metabolic History: Reports: Obesity/BMI 30+, Vitamin D Deficiency Other Endocrine/Metabolic History: blood sugar high at times before gastric bypass Hematologic History: Reports: B12 Deficiency Immunologic History: Reports: None Oncologic (Cancer) History: Reports: None Dermatologic History: Reports: Psoriasis, Other (See Below) Other Dermatologic History: psoriasis resolved after weight loss - Infectious Disease History Infectious Disease History: Reports: Chicken Pox - Past Surgical History HEENT Surgical History: Reports: Oral Surgery Cardiovascular Surgical History: Reports: None Respiratory Surgical History: Reports: None GI Surgical History: Reports: Appendectomy, Bariatric Procedure, Cholecystectomy , Colonoscopy, Hernia, Abdominal, Small Bowel Male Surgical History: Reports: None Endocrine Surgical History: Reports: None Neurological Surgical History: Reports: None Musculoskeletal Surgical History: Reports: Other (See Below) Other Musculoskeletal Surgeries/Procedures:: trigger finger repair. repair rotator cuff Dermatological Surgical History: Reports: None Social & Family History - Family History Family Medical History: Noncontributory - Tobacco Use Smoking Status *Q: Unknown Ever Smoked - Caffeine Use Caffeine Use: Reports: Coffee - Recreational Drug Use Recreational Drug Use: No - Living Situation & Occupation Living situation: Reports: Single ED ROS ALLERGIC REACTION - Review of Systems Review Of Systems: See Below Constitutional: Reports: Other (Skin feels hot itchy and red) HEENT: Reports: Other (Lips swelling a little bit) Respiratory: Denies: Shortness of Breath Cardiovascular: Reports: No Symptoms Endocrine: Reports: No Symptoms GI/Abdominal: Reports: No Symptoms Skin: Reports: Pruritis, Rash, Erythema Neurological: Reports: No Symptoms Psychiatric: Reports: No Symptoms Hematologic/Lymphatic: Reports: No Symptoms ED EXAM GENERAL NO PERIP PULSE - Physical Exam Exam: See Below Exam Limited By: No Limitations General Appearance: Alert, Moderate Distress, Obese, Other (Bright red skin all over) Eye Exam: Bilateral Eye: Normal Inspection Ears: Normal External Exam Nose: Normal Inspection Throat/Mouth: Normal Inspection, Normal Lips, Normal Oropharynx Head: Atraumatic Neck: Normal Inspection Respiratory/Chest: No Respiratory Distress, Lungs Clear Cardiovascular: Normal Peripheral Pulses, Regular Rate, Rhythm, No Murmur GI/Abdominal: Non-Tender Back Exam: Normal Inspection Extremities: Normal Inspection Neurological: Alert, Oriented Skin Exam: Erythema, Rash (Urticaria) Course - Vital Signs Last Recorded V/S: Last Vital Signs Temp 36.6 C 09/11/18 01:27 Pulse 68 09/11/18 01:43 Resp 14 09/11/18 01:43 BP 138/77 09/11/18 01:43 Pulse Ox 93 L 09/11/18 01:43 - Orders/Labs/Meds Meds: Medications Discontinued Medications Generic Name Dose Route Start Last Admin Trade Name Harry PRN Reason Stop Dose Admin Diphenhydramine HCl 50 mg 09/11/18 01:20 09/11/18 01:25 Benadryl IVPUSH 09/11/18 01:21 50 mg ONETIME ONE Administration Diphenhydramine HCl Confirm 09/11/18 01:22 09/11/18 01:31 Benadryl Administered 09/11/18 01:23 Not Given Dose 50 mg .ROUTE .STK-MED ONE Methylprednisolone Sodium Succinate 125 mg 09/11/18 01:20 09/11/18 01:28 Solu-Medrol IVPUSH 09/11/18 01:21 125 mg ONETIME ONE Administration Methylprednisolone Sodium Succinate Confirm 09/11/18 01:22 09/11/18 01:31 Solu-Medrol Administered 09/11/18 01:23 Not Given Dose 125 mg .ROUTE .STK-MED ONE - Re-Assessments/Exams Free Text/Narrative Re-Assessment/Exam: 09/11/18 04:44 An IV was established. He received Benadryl 50 mg and Solu-Medrol 125 mg. After about an hour he felt much better. He still continued to have the erythema which gradually decreased. He was observed here in the emergency department and at the present time he's feeling a whole lot better he still has some erythema but it's he should be ready to go home now. Departure - Departure Time of Disposition: 04:45 Disposition: Home, Self-Care 01 Condition: Fair Clinical Impression: Penicillin-induced allergic rash - Discharge Information Referrals: PCP,None [Primary Care Provider] - Additional Instructions: Stop taking the Augmentin. You appear to be allergic to penicillin. You should never have penicillin in the future. There are also other antibiotics related to penicillin. Your Dr. can decide which antibiotics would be safe for you to take. Instead take the antibiotic doxycycline 100 mg twice daily for 1 week. Take Benadryl 50 mg 4 times per day for the next 2 or 3 days. This medication will cause sedation and can impair driving or operating machinery. Take prednisone 20 mg twice daily for the next 3-5 days depending on how quickly you recover. If you recover completely within the next couple days then follow-up is needed. If the rash persists or is getting worse then return to the ER or see your doctor. If you ever feel like you're having shortness of breath or your throat is closing up then you should call 911 [address] to drive to the hospital
== END 2018-09-11 05:05 | disposition home or self-care (01) ==
LOC: JP.ED 01:13
DX: L27.1 Localized skin eruption due to drugs and medicaments taken internally (principal); T36.0X5A Adverse effect of penicillins, initial encounter; K21.9 Gastro-esophageal reflux disease without esophagitis; I10 Essential (primary) hypertension; F32.9 Major depressive disorder, single episode, unspecified; Z79.899 Other long term (current) drug therapy; Z88.1 Allergy status to other antibiotic agents; Z88.8 Allergy status to other drugs, medicaments and biological substances; Z91.09 Other allergy status, other than to drugs and biological substances
CPT/HCPCS: 96374; 96375; 99282; J1200; J2930

== ENCOUNTER 2018-12-20 20:20 | Emergency (ER) | payer MEDICARE, MEDICAID ==
[2018-12-20 21:05] VITALS: BP 149/89; PULSE 70
[2018-12-20] MEDS ORDERED: Lidocaine 1% with EPINEPHrine 1:100,000 50 ML MDV SUBCUT STA (21:48)
[2018-12-20] MEDS ORDERED: Diphtheria/Tetanus Toxoids,Adult (Td) 0.5 ML SDV IM ONE (21:51)
--- NOTE | 2018-12-20 22:15 | EDM.PDOC ---
ED HPI GENERAL MEDICAL PROBLEM - General Chief Complaint: Skin Complaint Stated Complaint: infection Time Seen by Provider: 12/20/18 21:43 Source of Information: Reports: Patient, RN Notes Reviewed History Limitations: Reports: No Limitations - History of Present Illness INITIAL COMMENTS - FREE TEXT/NARRATIVE: 58-year-old gentleman presents emergency department today with complaint of wound to his right thigh he injured himself about 4 days prior when he was hit with a board from tearing down an old deck punctured the back of his thigh he's now developed a red firm area no fevers it is painful right leg Pain Score (Numeric/FACES): 5 - Related Data Allergies Allergy/AdvReac Type Severity Reaction Status Date / Time amoxicillin [From Augmentin] Allergy Hives Verified 12/20/18 21:01 clavulanic acid Allergy Hives Verified 12/20/18 21:01 [From Augmentin] zinc oxide Allergy Rash Verified 12/20/18 21:01 foam tape Allergy Rash Uncoded 12/20/18 21:01 Home Meds: Home Meds Ca Citrate/Mgox/Vit D3/B6/Min [Calcium Citrate Plus Tablet] 1 each PO BID [History] Cyanocobalamin (Vitamin B-12) [B-12] 2,500 mcg SL DAILY 12/22/13 [History] Omeprazole [Prilosec] 20 mg PO BID 12/22/13 [History] Ped Multivit #17/Iron Fumarate [Pv Kids Vitamins+Iron Tab Chew] 1 tab PO BID [History] Cyanocobalamin (Vitamin B12) [Vitamin B12] 1,000 mcg IM Q30D 05/03/14 [History] Cholecalciferol (Vitamin D3) [Vitamin D] 2,500 units PO DAILY 05/09/15 [History] Ascorbic Acid [Vitamin C] 1,000 mg PO BID 03/19/16 [History] Citalopram Hydrobromide [Celexa] 40 mg PO DAILY 03/19/16 [History] Ergocalciferol (Vitamin D2) [Vitamin D] 2,500 unit PO DAILY 03/19/16 [History] Hydrocodone/Acetaminophen [[place] 10-325] 1 - 2 tab PO Q12H PRN 09/04/16 [History ] Vitamin B Complex 1 tab PO DAILY 09/04/16 [History] Lisinopril 5 mg PO DAILY 07/28/18 [History] Past Medical History HEENT History: Reports: Hard of Hearing, Impaired Vision Other HEENT History: wears glasses and hearing aides broken jaw Cardiovascular History: Reports: Heart Murmur, Hypertension, SOB on Exertion Other Cardiovascular History: hypertension resolved with RNY surgery 4 years ago Respiratory History: Reports: Intubation, Previous, Sleep Apnea Other Respiratory History: no trouble with sleep apnea after RNY surgery. Gastrointestinal History: Reports: Bowel Obstruction, Cholelithiasis, GERD Genitourinary History: Reports: Other (See Below) Other Genitourinary History: after appendectomy kidney infection Musculoskeletal History: Reports: Back Pain, Chronic, Gout, Osteoarthritis, Other (See Below) Other Musculoskeletal History: left shoulder pain. s/p lt rotator cuff repair Neurological History: Reports: Concussion Psychiatric History: Reports: Depression Endocrine/Metabolic History: Reports: Obesity/BMI 30+, Vitamin D Deficiency Other Endocrine/Metabolic History: blood sugar high at times before gastric bypass Hematologic History: Reports: B12 Deficiency Immunologic History: Reports: None Oncologic (Cancer) History: Reports: None Dermatologic History: Reports: Psoriasis, Other (See Below) Other Dermatologic History: psoriasis resolved after weight loss - Infectious Disease History Infectious Disease History: Reports: Chicken Pox - Past Surgical History Head Surgeries/Procedures: Reports: None HEENT Surgical History: Reports: Oral Surgery Cardiovascular Surgical History: Reports: None Respiratory Surgical History: Reports: None GI Surgical History: Reports: Appendectomy, Bariatric Procedure, Cholecystectomy , Colonoscopy, Hernia, Abdominal, Small Bowel Male Surgical History: Reports: None Endocrine Surgical History: Reports: None Neurological Surgical History: Reports: None Musculoskeletal Surgical History: Reports: Other (See Below) Other Musculoskeletal Surgeries/Procedures:: trigger finger repair. repair rotator cuff Dermatological Surgical History: Reports: None Social & Family History - Family History Family Medical History: Noncontributory - Tobacco Use Smoking Status *Q: Current Every Day Smoker Years of Tobacco use: 40 Packs/Tins Daily: 0.2 - Caffeine Use Caffeine Use: Reports: Soda, Tea Other Caffeine Use: rarely - Recreational Drug Use Recreational Drug Use: No - Living Situation & Occupation Living situation: Reports: Single ED ROS GENERAL - Review of Systems Review Of Systems: See Below Constitutional: Reports: No Symptoms Skin: Reports: Wound ED EXAM, SKIN/RASH Exam: See Below Text/Narrative:: Examination of the right thigh there is an area approximately size of a baseball that is warm and tender to the touch slight amount of pressure does produce thick purulent discharge Exam Limited By: No Limitations General Appearance: Alert, WD/WN, No Apparent Distress ED SKIN PROCEDURES - I&D Site: Right thigh Skin Prep: Providone-Iodine (Betadine) Local Anesthesia: Lidocaine: 1% with EPI Local Anesthetic Volume: 2cc Area Incised With: 11 Blade Drainage: Purulent, Small Amount Probed to Break Up Loculations: Yes Packed With: None Sterile Dressinx4(s) Complications: No Course - Vital Signs Last Recorded V/S: Last Vital Signs Temp 99.5 F 12/20/18 21:07 Pulse 70 12/20/18 21:07 Resp 16 12/20/18 21:07 BP 149/89 H 12/20/18 21:07 Pulse Ox 97 12/20/18 21:07 - Orders/Labs/Meds Orders: Active Orders 24 hr Category Date Time Status Vaccines to be Administered [RC] PER UNIT ROUTINE Care 12/20/18 21:51 Active CULTURE WOUND + SMEAR [RM] Stat Lab 12/20/18 22:02 Ordered Meds: Medications Discontinued Medications Generic Name Dose Route Start Last Admin Trade Name Harry PRN Reason Stop Dose Admin Lidocaine/Epinephrine 20 ml 12/20/18 21:48 12/20/18 22:01 Xylocaine 1% With Epinephrine 1:100,000 SUBCUT 12/20/18 21:49 20 ml NOW STA Administration Tetanus/Diphtheria Toxoids 0.5 ml 12/20/18 21:51 12/20/18 22:02 Tenivac IM 12/20/18 21:52 0.5 ml .ONCE ONE Administration Departure - Departure Time of Disposition: 22:14 Disposition: Home, Self-Care 01 Condition: Fair Clinical Impression: Cellulitis of left thigh, Abscess - Discharge Information Referrals: Kenan Soliz MD [Primary Care Provider] - Additional Instructions: Take full course of antibiotics, Please followup with your primary care provider in 3-5 days if not better, please call return to the emergency department with worsening of symptoms. - My Orders Last 24 Hours: My Active Orders 12/20/18 21:51 Vaccines to be Administered [RC] PER UNIT ROUTINE 12/20/18 22:02 CULTURE WOUND + SMEAR [RM] Stat - Assessment/Plan Last 24 Hours: My Active Orders 12/20/18 21:51 Vaccines to be Administered [RC] PER UNIT ROUTINE 12/20/18 22:02 CULTURE WOUND + SMEAR [RM] Stat Plan: Assessment Acuity = acute Site and laterality = abscess local cellulitis right thigh Etiology = probable bacterial cause Manifestations = none Location of injury = Home Lab values = wound cultures pending Plan Placed on antibiotics Bactrim DS one tab by mouth twice a day 10 days, he will follow wound care instruction sheet follow-up primary care 3-5 days for reevaluation This note was dictated using [employer] voice recognition software please call with any questions on syntax or grammar.
== END 2018-12-20 22:22 | disposition home or self-care (01) ==
LOC: JP.ED 20:20
DX: L03.115 Cellulitis of right lower limb (principal); L02.415 Cutaneous abscess of right lower limb; F32.9 Major depressive disorder, single episode, unspecified; E66.9 Obesity, unspecified; I10 Essential (primary) hypertension; M19.90 Unspecified osteoarthritis, unspecified site; F17.210 Nicotine dependence, cigarettes, uncomplicated; Z88.1 Allergy status to other antibiotic agents; Z90.49 Acquired absence of other specified parts of digestive tract; Z79.899 Other long term (current) drug therapy; Z91.048 Other nonmedicinal substance allergy status; Z68.30 Body mass index [BMI] 30.0-30.9, adult; Z23 Encounter for immunization
CPT/HCPCS: 10060; 87070; 87077; 87186; 87205; 90471; 90714; 99283; 99283-25

== ENCOUNTER 2019-01-09 13:20 | Emergency (ER) | payer MEDICARE, MEDICAID ==
[2019-01-09 13:32] VITALS: BP 127/74; PULSE 91
[2019-01-09] MEDS ORDERED: Bacitracin Oint 1 GM U/D Packet TOP ONE (13:36)
--- NOTE | 2019-01-09 13:36 | EDM.PDOC ---
ED HPI GENERAL MEDICAL PROBLEM - General Chief Complaint: Laceration Stated Complaint: CUT FINGERS LEFT HAND Time Seen by Provider: 01/09/19 13:36 Source of Information: Reports: Patient History Limitations: Reports: No Limitations - History of Present Illness INITIAL COMMENTS - FREE TEXT/NARRATIVE: pt was digging in a tool bag and he cut the dorsum of his fingers in the middle. He cut fairly superficial and he had good motion. Onset: Today Duration: Hour(s): Location: Reports: Upper Extremity, Left Associated Symptoms: Reports: No Other Symptoms - Related Data Allergies Allergy/AdvReac Type Severity Reaction Status Date / Time amoxicillin [From Augmentin] Allergy Hives Verified 01/09/19 13:37 clavulanic acid Allergy Hives Verified 01/09/19 13:37 [From Augmentin] zinc oxide Allergy Rash Verified 01/09/19 13:37 foam tape Allergy Rash Uncoded 01/09/19 13:37 Home Meds: Home Meds Ca Citrate/Mgox/Vit D3/B6/Min [Calcium Citrate Plus Tablet] 1 each PO BID [History] Cyanocobalamin (Vitamin B-12) [B-12] 2,500 mcg SL DAILY 12/22/13 [History] Omeprazole [Prilosec] 20 mg PO BID 12/22/13 [History] Ped Multivit #17/Iron Fumarate [Pv Kids Vitamins+Iron Tab Chew] 1 tab PO BID [History] Cyanocobalamin (Vitamin B12) [Vitamin B12] 1,000 mcg IM Q30D 05/03/14 [History] Cholecalciferol (Vitamin D3) [Vitamin D] 2,500 units PO DAILY 05/09/15 [History] Ascorbic Acid [Vitamin C] 1,000 mg PO BID 03/19/16 [History] Citalopram Hydrobromide [Celexa] 40 mg PO DAILY 03/19/16 [History] Ergocalciferol (Vitamin D2) [Vitamin D] 2,500 unit PO DAILY 03/19/16 [History] Hydrocodone/Acetaminophen [[place] 10-325] 1 - 2 tab PO Q12H PRN 09/04/16 [History ] Vitamin B Complex 1 tab PO DAILY 09/04/16 [History] Lisinopril 5 mg PO DAILY 07/28/18 [History] Past Medical History - Past Health History Medical/Surgical History: Denies Medical/Surgical History HEENT History: Reports: Hard of Hearing, Impaired Vision Other HEENT History: wears glasses and hearing aides broken jaw Cardiovascular History: Reports: Heart Murmur, Hypertension, SOB on Exertion Other Cardiovascular History: hypertension resolved with RNY surgery 4 years ago Respiratory History: Reports: Intubation, Previous, Sleep Apnea Other Respiratory History: no trouble with sleep apnea after RNY surgery. Gastrointestinal History: Reports: Bowel Obstruction, Cholelithiasis, GERD Genitourinary History: Reports: Other (See Below) Other Genitourinary History: after appendectomy kidney infection Musculoskeletal History: Reports: Back Pain, Chronic, Gout, Osteoarthritis, Other (See Below) Other Musculoskeletal History: left shoulder pain. s/p lt rotator cuff repair Neurological History: Reports: Concussion Psychiatric History: Reports: Depression Endocrine/Metabolic History: Reports: Obesity/BMI 30+, Vitamin D Deficiency Other Endocrine/Metabolic History: blood sugar high at times before gastric bypass Hematologic History: Reports: B12 Deficiency Immunologic History: Reports: None Oncologic (Cancer) History: Reports: None Dermatologic History: Reports: Psoriasis, Other (See Below) Other Dermatologic History: psoriasis resolved after weight loss - Infectious Disease History Infectious Disease History: Reports: Chicken Pox, MRSA - Past Surgical History Head Surgeries/Procedures: Reports: None HEENT Surgical History: Reports: Oral Surgery Cardiovascular Surgical History: Reports: None Respiratory Surgical History: Reports: None GI Surgical History: Reports: Appendectomy, Bariatric Procedure, Cholecystectomy , Colonoscopy, Hernia, Abdominal, Small Bowel Male Surgical History: Reports: None Endocrine Surgical History: Reports: None Neurological Surgical History: Reports: None Musculoskeletal Surgical History: Reports: Other (See Below) Other Musculoskeletal Surgeries/Procedures:: trigger finger repair. repair rotator cuff Dermatological Surgical History: Reports: None Social & Family History - Family History Family Medical History: Noncontributory - Tobacco Use Smoking Status *Q: Current Every Day Smoker Years of Tobacco use: 4 Packs/Tins Daily: 0.2 Used Tobacco, but Quit: No - Caffeine Use Caffeine Use: Reports: Coffee, Energy Drinks, Soda Other Caffeine Use: rarely - Recreational Drug Use Recreational Drug Use: No - Living Situation & Occupation Living situation: Reports: Single ED ROS GENERAL - Review of Systems Review Of Systems: See Below Constitutional: Reports: No Symptoms HEENT: Reports: No Symptoms Respiratory: Reports: No Symptoms Cardiovascular: Reports: No Symptoms Endocrine: Reports: No Symptoms GI/Abdominal: Reports: No Symptoms Musculoskeletal: Reports: Other (laceration of the middle and index finger. ) Skin: Reports: No Symptoms Neurological: Reports: No Symptoms ED EXAM, SKIN/RASH Exam: See Below Text/Narrative:: pt arrived with a superficial laceration of the middle and inex finger. Each were superficial and 1/4 inch in length. Exam Limited By: No Limitations General Appearance: Alert, Anxious, Moderate Distress Ears: Normal TMs Nose: Normal Inspection Throat/Mouth: Normal Inspection Head: Atraumatic Neck: Normal Inspection Respiratory/Chest: No Respiratory Distress Cardiovascular: Regular Rate, Rhythm GI/Abdominal: Soft, Non-Tender (Male) Exam: Deferred Rectal (Males) Exam: Deferred Back Exam: Normal Inspection Extremities: Other (pt has 1/4 inch lac on the diorsum of the middle and inex finger. ) Neurological: Alert, Oriented, Normal Cognition Course - Vital Signs Last Recorded V/S: Last Vital Signs Temp 35.7 C 01/09/19 13:32 Pulse 91 01/09/19 13:32 Resp 18 01/09/19 13:32 BP 127/74 01/09/19 13:32 Pulse Ox 95 01/09/19 13:32 - Orders/Labs/Meds Meds: Medications Discontinued Medications Generic Name Dose Route Start Last Admin Trade Name Harry PRN Reason Stop Dose Admin Bacitracin 1 dose 01/09/19 13:36 01/09/19 13:42 Bacitracin Oint 1 Gm TOP 01/09/19 13:37 1 dose ONETIME ONE Administration Lidocaine HCl 5 ml 01/09/19 13:35 01/09/19 13:42 Xylocaine-Mpf 1% INJECT 01/09/19 13:36 5 ml ONETIME ONE Administration - Re-Assessments/Exams Free Text/Narrative Re-Assessment/Exam: 01/09/19 14:18 area was cleansed well, infiltrated with lidocaine. and the wound was closed with 5-0 prolene. It was dresed with bacatracin. Departure - Departure Time of Disposition: 14:12 Disposition: Home, Self-Care 01 Condition: Fair Clinical Impression: Laceration - Discharge Information Instructions: Laceration Care, Adult, [id number] Referrals: Kenan Soliz MD [Primary Care Provider] - Forms: ED Department Discharge Care Plan Goals: keep dry, no furthr ointments, keep covered--dry dressing sr in 7_8 days.
== END 2019-01-09 14:16 | disposition home or self-care (01) ==
LOC: JP.ED 13:20
DX: S61.213A Laceration without foreign body of left middle finger without damage to nail, initial encounter (principal); I10 Essential (primary) hypertension; K21.9 Gastro-esophageal reflux disease without esophagitis; E66.9 Obesity, unspecified; F32.9 Major depressive disorder, single episode, unspecified; F17.210 Nicotine dependence, cigarettes, uncomplicated; Z88.1 Allergy status to other antibiotic agents; Z91.048 Other nonmedicinal substance allergy status; Z79.899 Other long term (current) drug therapy; Z68.41 Body mass index [BMI] 40.0-44.9, adult
CPT/HCPCS: 12001; 99282; J2001

== ENCOUNTER → 2019-02-25 | Day surgery (SDC) | payer MEDICARE, MEDICAID ==
[~2019-02-25] MED LIST changes: -Bupivacaine 0.5% 50 ML MDV ONE; -Dexamethasone 4 MG/ML SDV ONE; +Dextrose 5%-Lactated Ringers 1,000 ML IV SCH; +Glycopyrrolate 0.2 MG/ML 2 ML SDV IVPUSH ONE; -Glycopyrrolate 0.2 MG/ML 5 ML MDV ONE; +Iopamidol 612 MG/ML 150 ML Bottle IV SCH; +Lactated Ringers 1,000 ML IV ONE; +Lactated Ringers 1,000 ML IV SCH; -Lactated Ringers 1,000 ML ONE; +MVI, Adult with Vitamin K 10 ML, Chromium/Copper/Mang/Selen/Zn 1 ML in Lactated Ringers... IV ONE; +Midazolam 1 MG/ML 2 ML SDV ONE; -Neostigmine Methylsulfate 1 MG/ML 5 ML Syringe ONE; +Ondansetron 4 MG/2 ML SDV IVPUSH ONE; -Ondansetron 4 MG/2 ML SDV ONE; +Pantoprazole 40 MG Vial IVPUSH ONE; -Rocuronium 50 MG/5 ML Vial ONE; +Sodium Chloride 0.9% 10 ML Syringe FLUSH PRN; -Succinylcholine 200 MG/10 ML MDV ONE; +fentaNYL 100 MCG/2 ML SDV IVPUSH ONE; +fentaNYL 100 MCG/2 ML SDV ONE; -fentaNYL 250 MCG/5 ML SDV ONE
--- NOTE | 2019-02-25 04:55 | EDM.PDOC ---
ED HPI GENERAL MEDICAL PROBLEM - General Chief Complaint: Abdominal Pain Stated Complaint: LOWER ABD PAIN Time Seen by Provider: 02/25/19 04:47 Source of Information: Reports: Patient, RN Notes Reviewed History Limitations: Reports: No Limitations - History of Present Illness INITIAL COMMENTS - FREE TEXT/NARRATIVE: 88-year-old gentleman presents emergency department with a complaint of abdominal pain, he has a history of gastric bypass surgery several years ago states he has had abdominal pain epigastric region now for about 18 hours it is progressively gotten worse he cannot pass gas does have a dry heaves no shortness of breath chest pain no fevers Abdominal Pain Score (Numeric/FACES): 7 - Related Data Allergies Allergy/AdvReac Type Severity Reaction Status Date / Time amoxicillin [From Augmentin] Allergy Hives Verified 02/25/19 04:26 clavulanic acid Allergy Hives Verified 02/25/19 04:26 [From Augmentin] zinc oxide Allergy Rash Verified 02/25/19 04:26 foam tape Allergy Rash Uncoded 02/25/19 04:26 Home Meds: Home Meds Calcium Cit/Mgox/Vit D3/B6/Min [Calcium Citrate Plus Tablet] 1 each PO BID 12/22 [History] Cyanocobalamin (Vitamin B-12) [B-12] 2,500 mcg SL DAILY 12/22/13 [History] Ped Multivit #17/Iron Fumarate [Pv Kids Vitamins+Iron Tab Chew] 1 tab PO BID [History] Cyanocobalamin (Vitamin B12) [Vitamin B12] 1,000 mcg IM Q30D 05/03/14 [History] Cholecalciferol (Vitamin D3) [Vitamin D] 2,500 units PO DAILY 05/09/15 [History] Ascorbic Acid [Vitamin C] 1,000 mg PO BID 03/19/16 [History] Citalopram Hydrobromide [Celexa] 40 mg PO DAILY 03/19/16 [History] Ergocalciferol (Vitamin D2) [Vitamin D] 2,500 unit PO DAILY 03/19/16 [History] Hydrocodone/Acetaminophen [[place] 10-325] 1 - 2 tab PO Q12H PRN 09/04/16 [History ] Vitamin B Complex 1 tab PO DAILY 09/04/16 [History] Lisinopril 5 mg PO DAILY 07/28/18 [History] Past Medical History HEENT History: Reports: Hard of Hearing, Impaired Vision Other HEENT History: wears glasses and hearing aides broken jaw Cardiovascular History: Reports: Heart Murmur, Hypertension, SOB on Exertion Other Cardiovascular History: hypertension resolved with RNY surgery 4 years ago Respiratory History: Reports: Intubation, Previous, Sleep Apnea Other Respiratory History: no trouble with sleep apnea after RNY surgery. Gastrointestinal History: Reports: Bowel Obstruction, Cholelithiasis, GERD Genitourinary History: Reports: Other (See Below) Other Genitourinary History: after appendectomy kidney infection Musculoskeletal History: Reports: Back Pain, Chronic, Gout, Osteoarthritis, Other (See Below) Other Musculoskeletal History: left shoulder pain. s/p lt rotator cuff repair Neurological History: Reports: Concussion Psychiatric History: Reports: Depression Endocrine/Metabolic History: Reports: Obesity/BMI 30+, Vitamin D Deficiency Other Endocrine/Metabolic History: blood sugar high at times before gastric bypass Hematologic History: Reports: Anemia, B12 Deficiency, Folic Acid, Iron Deficiency Immunologic History: Reports: None Oncologic (Cancer) History: Reports: None Dermatologic History: Reports: Psoriasis Other Dermatologic History: psoriasis resolved after weight loss - Infectious Disease History Infectious Disease History: Reports: Chicken Pox - Past Surgical History Head Surgeries/Procedures: Reports: None HEENT Surgical History: Reports: Oral Surgery Cardiovascular Surgical History: Reports: None Respiratory Surgical History: Reports: None GI Surgical History: Reports: Appendectomy, Bariatric Procedure, Cholecystectomy , Colonoscopy, Hernia, Abdominal, Small Bowel Male Surgical History: Reports: None Endocrine Surgical History: Reports: None Neurological Surgical History: Reports: None Musculoskeletal Surgical History: Reports: Other (See Below) Other Musculoskeletal Surgeries/Procedures:: trigger finger repair. repair rotator cuff Dermatological Surgical History: Reports: None Social & Family History - Family History Family Medical History: Noncontributory - Tobacco Use Smoking Status *Q: Light Tobacco Smoker Years of Tobacco use: 8 Packs/Tins Daily: 0.1 - Caffeine Use Caffeine Use: Reports: Soda Other Caffeine Use: rarely - Recreational Drug Use Recreational Drug Use: No - Living Situation & Occupation Living situation: Reports: Single ED ROS GENERAL - Review of Systems Review Of Systems: See Below Constitutional: Reports: No Symptoms HEENT: Reports: No Symptoms Respiratory: Reports: No Symptoms Cardiovascular: Reports: No Symptoms GI/Abdominal: Reports: Abdominal Pain, Nausea, Vomiting. Denies: Flatus : Reports: No Symptoms ED EXAM, GI/ABD - Physical Exam Exam: See Below Exam Limited By: No Limitations General Appearance: Alert, WD/WN, No Apparent Distress Respiratory/Chest: No Respiratory Distress, Lungs Clear, Normal Breath Sounds, No Accessory Muscle Use, Chest Non-Tender Cardiovascular: Regular Rate, Rhythm, No Murmur GI/Abdominal Exam: Normal Bowel Sounds, Soft, Tender (Epigastric region) Course - Vital Signs Last Recorded V/S: Last Vital Signs Temp 98.2 F 02/25/19 04:33 Pulse 59 L 02/25/19 05:47 Resp 18 02/25/19 05:47 BP 154/86 H 02/25/19 05:47 Pulse Ox 98 02/25/19 05:47 - Orders/Labs/Meds Orders: Active Orders 24 hr Category Date Time Status Peripheral IV Care [RC] . DIRECTED Care 02/25/19 04:51 Active Lactated Ringers [Ringers, Lactated] 1,000 ml Med 02/25/19 05:00 Active IV ASDIRECTED Lactated Ringers [Ringers, Lactated] 1,000 ml Med 02/25/19 06:42 Ordered IV BOLUS Sodium Chloride 0.9% [Normal Saline] 85 ml Med 02/25/19 05:00 Active IV ASDIRECTED Sodium Chloride 0.9% [Saline Flush] Med 02/25/19 04:50 Active 10 ml FLUSH ASDIRECTED PRN Peripheral IV Insertion Adult [OM.PC] Urgent Oth 02/25/19 04:50 Ordered Medication Orders Lactated Ringer's (Ringers, Lactated) 1,000 mls @ 999 mls/hr IV ASDIRECTED [facility] Last Admin: 02/25/19 04:57 Dose: 999 mls/hr Sodium Chloride (Normal Saline) 85 mls @ 3 mls/sec IV ASDIRECTED ANG Last Admin: 02/25/19 05:26 Dose: 3 mls/sec Lactated Ringer's (Ringers, Lactated) 1,000 mls @ 125 mls/hr IV BOLUS ONE Stop: 02/25/19 14:41 Sodium Chloride (Saline Flush) 10 ml FLUSH ASDIRECTED PRN PRN Reason: Keep Vein Open Last Admin: 02/25/19 04:57 Dose: 10 ml Labs: Laboratory Tests 02/25/19 02/25/19 02/25/19 Range/Units 04:50 05:05 05:05 WBC 7.6 (4.5-11.0) K/uL RBC 5.23 (4.30-5.90) M/uL Hgb 15.4 H D (12.0-15.0) g/dL Hct 46.8 (40.0-54.0) % MCV 90 (80-98) fL MCH 29 (27-31) pg MCHC 33 (32-36) % Plt Count 205 (150-400) K/uL Neut % (Auto) 73 H (36-66) % Lymph % (Auto) 17 L (24-44) % Oliver % (Auto) 9 H (2-6) % Eos % (Auto) 1 L (2-4) % Baso % (Auto) 0 (0-1) % Sodium 140 (140-148) mmol/L Potassium 3.4 L (3.6-5.2) mmol/L Chloride 103 (100-108) mmol/L Carbon Dioxide 26 (21-32) mmol/L Anion Gap 14.4 H (5.0-14.0) mmol/L BUN 8 (7-18) mg/dL Creatinine 0.9 (0.8-1.3) mg/dL Est Cr Clr Drug Dosing 109.54 mL/min Estimated GFR (MDRD) > 60 (>60) Glucose 101 (74-106) mg/dL Lactic Acid (0.4-2.0) mmol/L Calcium 9.3 (8.5-10.1) mg/dL Total Bilirubin 0.9 D (0.2-1.0) mg/dL AST 21 (15-37) U/L ALT 28 (12-78) U/L Alkaline Phosphatase 119 H (46-116) U/L Troponin I < 0.017 (0.000-0.056) ng/mL Total Protein 7.3 (6.4-8.2) g/dL Albumin 3.9 (3.4-5.0) g/dL Globulin 3.4 (2.3-3.5) g/dL Albumin/Globulin Ratio 1.1 L (1.2-2.2) Lipase 101 (73-393) U/L Urine Color Yellow (YELLOW) Urine Appearance Clear (CLEAR) Urine pH 7.0 (5.0-8.0) Ur Specific [place] 1.015 (1.008-1.030) Urine Protein Negative (NEGATIVE) mg/dL Urine Glucose (UA) Negative (NEGATIVE) mg/dL Urine Ketones 15 H (NEGATIVE) mg/dL Urine Occult Blood Trace-intact H (NEGATIVE) Urine Nitrite Negative (NEGATIVE) Urine Bilirubin Negative (NEGATIVE) Urine Urobilinogen 0.2 (0.2-1.0) EU/dL Ur Leukocyte Esterase Trace H (NEGATIVE) Urine RBC 0-5 (0-5) Urine WBC 0-5 (0-5) Ur Epithelial Cells Few Amorphous Sediment Not seen Urine Bacteria Few Urine Mucus Not seen 02/25/19 Range/Units 05:05 WBC (4.5-11.0) K/uL RBC (4.30-5.90) M/uL Hgb (12.0-15.0) g/dL Hct (40.0-54.0) % MCV (80-98) fL MCH (27-31) pg MCHC (32-36) % Plt Count (150-400) K/uL Neut % (Auto) (36-66) % Lymph % (Auto) (24-44) % Oliver % (Auto) (2-6) % Eos % (Auto) (2-4) % Baso % (Auto) (0-1) % Sodium (140-148) mmol/L Potassium (3.6-5.2) mmol/L Chloride (100-108) mmol/L Carbon Dioxide (21-32) mmol/L Anion Gap (5.0-14.0) mmol/L BUN (7-18) mg/dL Creatinine (0.8-1.3) mg/dL Est Cr Clr Drug Dosing mL/min Estimated GFR (MDRD) (>60) Glucose (74-106) mg/dL Lactic Acid 1.9 (0.4-2.0) mmol/L Calcium (8.5-10.1) mg/dL Total Bilirubin (0.2-1.0) mg/dL AST (15-37) U/L ALT (12-78) U/L Alkaline Phosphatase (46-116) U/L Troponin I (0.000-0.056) ng/mL Total Protein (6.4-8.2) g/dL Albumin (3.4-5.0) g/dL Globulin (2.3-3.5) g/dL Albumin/Globulin Ratio (1.2-2.2) Lipase (73-393) U/L Urine Color (YELLOW) Urine Appearance (CLEAR) Urine pH (5.0-8.0) Ur Specific [place] (1.008-1.030) Urine Protein (NEGATIVE) mg/dL Urine Glucose (UA) (NEGATIVE) mg/dL Urine Ketones (NEGATIVE) mg/dL Urine Occult Blood (NEGATIVE) Urine Nitrite (NEGATIVE) Urine Bilirubin (NEGATIVE) Urine Urobilinogen (0.2-1.0) EU/dL Ur Leukocyte Esterase (NEGATIVE) Urine RBC (0-5) Urine WBC (0-5) Ur Epithelial Cells Amorphous Sediment Urine Bacteria Urine Mucus Meds: Medications Generic Name Dose Route Start Last Admin Trade Name Freq PRN Reason Stop Dose Admin Lactated Ringer's 1,000 mls @ 999 mls/hr 02/25/19 05:00 02/25/19 04:57 Ringers, Lactated IV 999 mls/hr ASDIRECTED ANG Administration Sodium Chloride 85 mls @ 3 mls/sec 02/25/19 05:00 02/25/19 05:26 Normal Saline IV 3 mls/sec ASDIRECTED ANG Administration Lactated Ringer's 1,000 mls @ 125 mls/hr 02/25/19 06:42 Ringers, Lactated IV 02/25/19 14:41 BOLUS ONE Sodium Chloride 10 ml 02/25/19 04:50 02/25/19 04:57 Saline Flush FLUSH 10 ml ASDIRECTED PRN Administration Keep Vein Open Discontinued Medications Generic Name Dose Route Start Last Admin Trade Name Freq PRN Reason Stop Dose Admin Fentanyl 50 mcg 02/25/19 04:52 02/25/19 05:01 Sublimaze IVPUSH 02/25/19 04:53 50 mcg ONETIME ONE Administration Iopamidol 150 ml 02/25/19 05:00 02/25/19 05:26 Isovue-300 (61%) IV 150 ml . DIRECTED ANG Administration Ondansetron HCl 4 mg 02/25/19 04:52 02/25/19 05:01 Zofran IVPUSH 02/25/19 04:53 4 mg ONETIME ONE Administration Sodium Chloride 10 ml 02/25/19 04:59 02/25/19 05:26 Saline Flush FLUSH 02/25/19 05:00 10 ml ONETIME ONE Administration Departure - Departure Time of Disposition: 06:47 Disposition: DC/Tfer to Other 70 Condition: Fair Clinical Impression: Gastric anastomotic stricture - Discharge Information Referrals: Kenan Soliz MD [Primary Care Provider] - Forms: ED Department Discharge - My Orders Last 24 Hours: My Active Orders 02/25/19 04:50 Sodium Chloride 0.9% [Saline Flush] 10 ml FLUSH ASDIRECTED PRN Peripheral IV Insertion Adult [OM.PC] Urgent 02/25/19 04:51 Peripheral IV Care [RC] . DIRECTED 02/25/19 05:00 Lactated Ringers [Ringers, Lactated] 1,000 ml IV ASDIRECTED Sodium Chloride 0.9% [Normal Saline] 85 ml IV ASDIRECTED 02/25/19 06:42 Lactated Ringers [Ringers, Lactated] 1,000 ml IV BOLUS - Assessment/Plan Last 24 Hours: My Active Orders 02/25/19 04:50 Sodium Chloride 0.9% [Saline Flush] 10 ml FLUSH ASDIRECTED PRN Peripheral IV Insertion Adult [OM.PC] Urgent 02/25/19 04:51 Peripheral IV Care [RC] . DIRECTED 02/25/19 05:00 Lactated Ringers [Ringers, Lactated] 1,000 ml IV ASDIRECTED Sodium Chloride 0.9% [Normal Saline] 85 ml IV ASDIRECTED 02/25/19 06:42 Lactated Ringers [Ringers, Lactated] 1,000 ml IV BOLUS Plan: Assessment Acuity = acute Site and laterality = anastomotic stricture complicated the patient with history of gastric bypass Etiology = unknown Manifestations = epigastric pain Location of injury = Home Lab values = CBC CMP unremarkable CT scan described stricture above Plan Call discussed case with Dr. Rodriguez at [facility] plan is to take him from the emergency department to the outpatient surgery for EGD with possible dilation, discussed case with cook house laborer will plan for calling anesthesia and operating crew This note was dictated using [employer] voice recognition software please call with any questions on syntax or grammar.
[2019-02-25] MEDS: Sodium Chloride 0.9% 10 ML Syringe FLUSH ONE ×2 (05:02→05:26)
--- NOTE | 2019-02-25 06:22 | CRLCT ---
INDICATION: Epigastric pain TECHNIQUE: CT abdomen and pelvis acquired with 150 cc Isovue-300 intravenous contrast. COMPARISON: Abdomen and pelvis CT 05/09/2015 FINDINGS: Lower chest: Stable 2 millimeter pulmonary nodule right middle lobe. Liver: Unremarkable. Normal in size and attenuation. No masses. Gallbladder and bile ducts: Status post cholecystectomy. Pancreas: Unremarkable. No mass or inflammation. Spleen: Unremarkable. Normal in size. No masses. Adrenal glands: Unremarkable. No nodules. Kidneys: Symmetric renal enhancement with left renal low-density lesions which are too small for characterization although likely represent renal cysts. Nonobstructing nephrolithiasis. GI tract: Anastomotic line at the esophageal hiatus consistent with gastric bypass with some dilatation of the distal esophagus with food/debris distending the lumen. This is just proximal to the anastomotic line. Stomach is relatively decompressed and there are no dilated loops of large or small intestine. Colonic diverticulosis is noted. Suture line at the cecal tip suggesting for appendectomy. Trace free fluid deep pelvis. Vasculature: Atherosclerosis without abdominal aortic aneurysm. Pelvis: Unremarkable. Bones: Mild degenerative disc disease lumbar spine. IMPRESSION: 1. Status post gastric bypass with no made of mild dilatation of the distal esophagus just proximal to the anastomosis with fluid/debris within the distal esophagus. Appearance is suspicious for anastomotic stricture. 2. Colonic diverticulosis without katerina diverticulitis. 3. Trace free fluid in the pelvis. 4. Nonobstructing nephrolithiasis. Please note that all CT scans at this facility use dose modulation, iterative reconstruction, and/or weight-based dosing when appropriate to reduce radiation dose to as low as reasonably achievable. Dictated by Johnie Miller MD @ Feb 25 2019 6:10AM Signed by Dr. Johnie Miller @ Feb 25 2019 6:19AM
[2019-02-25 09:11] VITALS: BP 103/70; PULSE 59
--- NOTE | 2019-02-26 08:39 | ER ---
DATE OF SERVICE: 02/25/2019 The patient was presenting to the emergency room this morning with epigastric discomfort and CT scan showed the retained food within the distal esophagus and gastric pouch with the patient being status post previous gastric bypass. The foreign body was removed endoscopically earlier and he has been noted to have some pouch gastritis and inflammation at the gastrojejunostomy, but no true stricture per se and no ulcers were present. The plan following the procedure was to give the patient 40 mg of Protonix in the recovery room and then begin 40 mg a day orally. We will have the patient see Key Mcelroy back in 10 to 14 days for a recheck. Jose Rodriguez MD Job #: [id number]
--- NOTE | 2019-02-27 11:46 | OR ---
DATE OF PROCEDURE: 02/25/2019 SURGEON: Jose Rodriguez MD PREOPERATIVE DIAGNOSIS: Retained ingested food above gastrojejunostomy. POSTOPERATIVE DIAGNOSIS: Pouch gastritis associated with foreign body (ingested food) in gastric pouch and distal esophagus. OPERATIVE PROCEDURE: Upper gastrointestinal endoscopy with removal of foreign body from distal esophagus and gastric pouch (10060). ANESTHESIA: IV sedation. INDICATIONS FOR PROCEDURE: The patient is status post previous Tere-en-Y gastric bypass, presenting with some ongoing epigastric discomfort. A CT scan was obtained which showed retained food within the distal esophagus and into the gastric pouch. No other complications were noted at this point. The patient denied problems with epigastric pain or significant dysphagia recently. He is not on any antisecretory medications. Plan is to proceed with an upper gastrointestinal endoscopy, removal of any remaining foreign body with biopsies and/or dilation as indicated. Potential risks of the procedure including bleeding and perforation, along with remote possibility of aspiration of the esophageal contents were gone over, and the patient wishes to proceed. DETAILS OF PROCEDURE: The patient was taken to the operating room and placed in a left lateral decubitus position. IV sedation was administered, after which the upper GI endoscope was passed orally through the length of the esophagus. In the distal esophagus, the patient was noted to have aggregate of ingested meat. There were no large chunks per se, but this had been aggregated more or less into a formed mass. The scope was able to be passed around the meat and into the jejunum beyond the gastrojejunostomy. The meat was therefore broken up sequentially and removed from the distal esophagus area of the gastric pouch until all of that had been removed from the gastric pouch and distal esophagus. The patient was noted to have quite a bit in the way of pouch gastritis and some edema of the gastric pouch and gastrojejunostomy, but no true stricturing or ulceration per se. The scope was then withdrawn and the procedure was then concluded. Jose Rodriguez MD Job #: [id number]
== END | disposition home or self-care (01) ==
LOC: JP.ED 04:13 → JP.SDS 07:26
PROVIDERS: ATTEND Surgery
DX: K29.60 Other gastritis without bleeding (principal); K21.9 Gastro-esophageal reflux disease without esophagitis; I10 Essential (primary) hypertension; M10.9 Gout, unspecified; M19.90 Unspecified osteoarthritis, unspecified site; E55.9 Vitamin D deficiency, unspecified; E53.8 Deficiency of other specified B group vitamins; F17.200 Nicotine dependence, unspecified, uncomplicated; E66.9 Obesity, unspecified; Z88.0 Allergy status to penicillin; Z88.8 Allergy status to other drugs, medicaments and biological substances; Z91.048 Other nonmedicinal substance allergy status; Z79.899 Other long term (current) drug therapy; Z68.41 Body mass index [BMI] 40.0-44.9, adult
CPT/HCPCS: 36415; 43247; 74177; 80053; 81001; 83605; 83690; 84484; 85025; 99283; C9113; J2250; J2405; J2704; J3010; J3490; J7030; J7120; 96361; 96374; 96375; 99285-25

== ENCOUNTER 2019-04-17 06:36 | Inpatient (IN) | payer MEDICARE, MEDICAID ==
[2019-04-17] MEDS ORDERED: Ketorolac 30 MG/ML SDV IVPUSH ONE (07:05)
--- NOTE | 2019-04-17 07:17 | EDM.PDOC ---
ED HPI GENERAL MEDICAL PROBLEM - General Chief Complaint: Flank Pain Stated Complaint: BAD PAIN TO LEFT SIDE/BACK Time Seen by Provider: 04/17/19 07:00 Source of Information: Reports: Patient History Limitations: Reports: No Limitations - History of Present Illness INITIAL COMMENTS - FREE TEXT/NARRATIVE: 58-year-old male woke with sudden left flank pain at 4 AM, felt like he had to "go to the bathroom". Over the next hour the pain radiated around to the left groin. He is able to urinate but unable to have a bowel movement. No fevers or chills, recent illness, history of kidney stones or recent trauma. Nausea but no vomiting, pain is so intense that he is "shaking". Onset: Sudden Duration: Hour(s): (3 hours ago) Location: Reports: Other (Left flank) Quality: Reports: Sharp, Stabbing Improves with: Reports: None Worsens with: Reports: None Associated Symptoms: Reports: Other (Nausea but no vomiting) left flank/ groin Pain Score (Numeric/FACES): 10 - Related Data Allergies Allergy/AdvReac Type Severity Reaction Status Date / Time amoxicillin [From Augmentin] Allergy Hives Verified 02/25/19 04:26 clavulanic acid Allergy Hives Verified 02/25/19 04:26 [From Augmentin] zinc oxide Allergy Rash Verified 02/25/19 04:26 foam tape Allergy Rash Uncoded 02/25/19 04:26 Home Meds: Home Meds Calcium Cit/Mgox/Vit D3/B6/Min [Calcium Citrate Plus Tablet] 1 each PO BID 12/22 [History] Cyanocobalamin (Vitamin B-12) [B-12] 2,500 mcg SL DAILY 12/22/13 [History] Ped Multivit #17/Iron Fumarate [Pv Kids Vitamins+Iron Tab Chew] 1 tab PO BID [History] Cyanocobalamin (Vitamin B12) [Vitamin B12] 1,000 mcg IM Q30D 05/03/14 [History] Cholecalciferol (Vitamin D3) [Vitamin D] 2,500 units PO DAILY 05/09/15 [History] Ascorbic Acid [Vitamin C] 1,000 mg PO BID 03/19/16 [History] Citalopram Hydrobromide [Celexa] 40 mg PO DAILY 03/19/16 [History] Ergocalciferol (Vitamin D2) [Vitamin D] 2,500 unit PO DAILY 03/19/16 [History] Hydrocodone/Acetaminophen [[place] 10-325] 1 - 2 tab PO Q12H PRN 09/04/16 [History ] Vitamin B Complex 1 tab PO DAILY 09/04/16 [History] Lisinopril 2.5 mg PO DAILY 07/28/18 [History] Pantoprazole [ProTONIX] 40 mg PO DAILY 04/06/19 [History] oxyCODONE HCl/Acetaminophen [Percocet 5-325 mg Tablet] 1 each PO Q4HR PRN #36 tablet 04/06/19 [Rx] Past Medical History - Past Health History Medical/Surgical History: Denies Medical/Surgical History HEENT History: Reports: Hard of Hearing, Impaired Vision Other HEENT History: wears glasses and hearing aides broken jaw Cardiovascular History: Reports: Heart Murmur, Hypertension, SOB on Exertion Other Cardiovascular History: hypertension resolved with RNY surgery 4 years ago Respiratory History: Reports: Intubation, Previous, Sleep Apnea Other Respiratory History: no trouble with sleep apnea after RNY surgery. Gastrointestinal History: Reports: Bowel Obstruction, Cholelithiasis, GERD Genitourinary History: Reports: Other (See Below) Other Genitourinary History: after appendectomy kidney infection Musculoskeletal History: Reports: Back Pain, Chronic, Gout, Osteoarthritis, Other (See Below) Other Musculoskeletal History: left shoulder pain. s/p lt rotator cuff repair Neurological History: Reports: Concussion Psychiatric History: Reports: Depression Endocrine/Metabolic History: Reports: Obesity/BMI 30+, Vitamin D Deficiency Other Endocrine/Metabolic History: blood sugar high at times before gastric bypass Hematologic History: Reports: Anemia, B12 Deficiency, Folic Acid, Iron Deficiency Immunologic History: Reports: None Oncologic (Cancer) History: Reports: None Dermatologic History: Reports: Psoriasis Other Dermatologic History: psoriasis resolved after weight loss - Infectious Disease History Infectious Disease History: Reports: Chicken Pox - Past Surgical History Head Surgeries/Procedures: Reports: None HEENT Surgical History: Reports: Oral Surgery Cardiovascular Surgical History: Reports: None Respiratory Surgical History: Reports: None GI Surgical History: Reports: Appendectomy, Bariatric Procedure, Cholecystectomy , Colonoscopy, Hernia, Abdominal, Small Bowel Male Surgical History: Reports: None Endocrine Surgical History: Reports: None Neurological Surgical History: Reports: None Musculoskeletal Surgical History: Reports: Other (See Below) Other Musculoskeletal Surgeries/Procedures:: trigger finger repair. repair rotator cuff Dermatological Surgical History: Reports: None Social & Family History - Family History Family Medical History: Noncontributory - Tobacco Use Smoking Status *Q: Current Every Day Smoker Years of Tobacco use: 50 Packs/Tins Daily: 0.5 - Caffeine Use Caffeine Use: Reports: Energy Drinks, Soda Other Caffeine Use: rarely - Recreational Drug Use Recreational Drug Use: No - Living Situation & Occupation Living situation: Reports: Single ED ROS GENERAL - Review of Systems Review Of Systems: See Below Constitutional: Denies: Fever, Chills HEENT: Reports: No Symptoms Respiratory: Denies: Shortness of Breath Cardiovascular: Denies: Chest Pain GI/Abdominal: Reports: Abdominal Pain, Nausea (Left lower abdomen). Denies: Vomiting Skin: Reports: No Symptoms Neurological: Denies: Headache Psychiatric: Reports: No Symptoms ED EXAM, GENERAL - Physical Exam Exam: See Below Exam Limited By: No Limitations General Appearance: Alert, Moderate Distress Eye Exam: Bilateral Eye: Normal Inspection Respiratory/Chest: No Respiratory Distress, Lungs Clear Cardiovascular: Regular Rate, Rhythm GI/Abdominal: Soft, Non-Tender Neurological: Alert, Oriented Psychiatric: Anxious Course - Vital Signs Last Recorded V/S: Last Vital Signs Temp 102.2 F H 04/17/19 18:05 Pulse 89 04/17/19 18:05 Resp 16 04/17/19 18:05 BP 116/53 L 04/17/19 18:05 Pulse Ox 94 L 04/17/19 18:05 - Orders/Labs/Meds Orders: Active Orders 24 hr Category Date Time Status CULTURE URINE [RM] Stat Lab 04/17/19 08:10 Received Medication Orders Acetaminophen (Tylenol) 650 mg PO Q4H PRN PRN Reason: Pain (Mild 1-3)/fever Last Admin: 04/17/19 17:07 Dose: 650 mg Admin: 04/17/19 11:07 Dose: 650 mg Citalopram Hydrobromide (Celexa) 40 mg PO DAILY ANG Last Admin: 04/17/19 10:49 Dose: 40 mg Hydromorphone HCl (Dilaudid) 0.5 mg IVPUSH Q2H PRN PRN Reason: Pain Last Admin: 04/17/19 16:30 Dose: 0.5 mg Admin: 04/17/19 14:01 Dose: 0.5 mg Admin: 04/17/19 10:46 Dose: 0.5 mg Ceftriaxone Sodium 1 gm/ (Sodium Chloride) 50 mls @ 100 mls/hr IV Q24H [facility] Last Admin: 04/17/19 10:49 Dose: 100 mls/hr Lisinopril (Prinivil) 2.5 mg PO DAILY [facility] Ondansetron HCl (Zofran) 4 mg IV Q4H PRN PRN Reason: Nausea/Vomiting Pantoprazole Sodium (Protonix) 40 mg PO DAILY@0730 [facility] Last Admin: 04/17/19 10:49 Dose: 40 mg Polyethylene Glycol (Miralax) 17 gm PO DAILY PRN PRN Reason: Constipation Sodium Chloride (Saline Flush) 10 ml FLUSH ASDIRECTED PRN PRN Reason: Keep Vein Open Tamsulosin HCl (Flomax) 0.4 mg PO DAILY [facility] Labs: Laboratory Tests 04/17/19 04/17/19 04/17/19 Range/Units 07:05 08:21 08:32 WBC 6.5 (4.5-11.0) K/uL RBC 4.93 (4.30-5.90) M/uL Hgb 15.1 H (12.0-15.0) g/dL Hct 46.9 (40.0-54.0) % MCV 95 (80-98) fL MCH 31 (27-31) pg MCHC 32 (32-36) % Plt Count 153 (150-400) K/uL Neut % (Auto) 92 H (36-66) % Lymph % (Auto) 6 L (24-44) % [place] % (Auto) 1 L (2-6) % Eos % (Auto) 1 L (2-4) % Baso % (Auto) 0 (0-1) % Sodium 141 (140-148) mmol/L Potassium 3.8 (3.6-5.2) mmol/L Chloride 103 (100-108) mmol/L Carbon Dioxide 28 (21-32) mmol/L Anion Gap 10.5 (5.0-14.0) mmol/L BUN 16 D (7-18) mg/dL Creatinine 1.2 (0.8-1.3) mg/dL Est Cr Clr Drug Dosing 79.92 mL/min Estimated GFR (MDRD) > 60 (>60) Glucose 81 (74-106) mg/dL Calcium 8.9 (8.5-10.1) mg/dL Urine Color Yellow (YELLOW) Urine Appearance Cloudy A (CLEAR) Urine pH 6.0 (5.0-8.0) Ur Specific [place] 1.020 (1.008-1.030) Urine Protein Negative (NEGATIVE) mg/dL Urine Glucose (UA) Negative (NEGATIVE) mg/dL Urine Ketones Negative (NEGATIVE) mg/dL Urine Occult Blood Moderate H (NEGATIVE) Urine Nitrite Positive H (NEGATIVE) Urine Bilirubin Negative (NEGATIVE) Urine Urobilinogen 0.2 (0.2-1.0) EU/dL Ur Leukocyte Esterase Small H (NEGATIVE) Urine RBC 5-10 H (0-5) Urine WBC 10-20 H (0-5) Ur Epithelial Cells Not seen Amorphous Sediment Not seen Urine Bacteria Many Urine Mucus Not seen Meds: Medications Generic Name Dose Route Start Last Admin Trade Name Freq PRN Reason Stop Dose Admin Acetaminophen 650 mg 04/17/19 10:04 04/17/19 17:07 Tylenol PO 650 mg Q4H PRN Administration Pain (Mild 1-3)/fever Citalopram Hydrobromide 40 mg 04/17/19 11:00 04/17/19 10:49 Celexa PO 40 mg DAILY ANG Administration Hydromorphone HCl 0.5 mg 04/17/19 10:04 04/17/19 16:30 Dilaudid IVPUSH 0.5 mg Q2H PRN Administration Pain Ceftriaxone Sodium 1 gm/ 50 mls @ 100 mls/hr 04/17/19 11:00 04/17/19 10:49 Sodium Chloride IV 100 mls/hr Q24H ANG Administration Lisinopril 2.5 mg 04/18/19 09:00 Prinivil PO DAILY ANG Ondansetron HCl 4 mg 04/17/19 10:04 Zofran IV Q4H PRN Nausea/Vomiting Pantoprazole Sodium 40 mg 04/17/19 11:00 04/17/19 10:49 Protonix PO 40 mg DAILY@0730 ANG Administration Polyethylene Glycol 17 gm 04/17/19 10:04 Miralax PO DAILY PRN Constipation Sodium Chloride 10 ml 04/17/19 10:04 Saline Flush FLUSH ASDIRECTED PRN Keep Vein Open Tamsulosin HCl 0.4 mg 04/18/19 09:00 Flomax PO DAILY ANG Discontinued Medications Generic Name Dose Route Start Last Admin Trade Name Harry PRN Reason Stop Dose Admin Hydromorphone HCl 1 mg 04/17/19 08:41 04/17/19 08:47 Dilaudid IVPUSH 04/17/19 08:42 1 mg ONETIME ONE Administration Levofloxacin/Dextrose 500 mg/ 100 mls @ 100 mls/hr 04/17/19 08:24 04/17/19 08 :34 Premix IV 04/17/19 09:23 100 mls/hr ONETIME ONE Administration Ketorolac Tromethamine 30 mg 04/17/19 07:05 04/17/19 07:11 Toradol IVPUSH 04/17/19 07:06 30 mg ONETIME ONE Administration Lisinopril 5 mg 04/17/19 11:00 Prinivil PO DAILY ANG Lisinopril 2.5 mg 04/17/19 11:00 04/17/19 10:56 Prinivil PO 2.5 mg DAILY ANG Administration Tamsulosin HCl 0.4 mg 04/17/19 07:34 04/17/19 07:38 Flomax PO 04/17/19 07:35 0.4 mg ONETIME ONE Administration - Re-Assessments/Exams Free Text/Narrative Re-Assessment/Exam: 04/17/19 07:16 UA was obtained, a urinalysis will be run. IV was placed and the patient was given 30 mg of IV Toradol since this is so typical of a kidney stone. CT of the abdomen and pelvis without contrast will be obtained. 04/17/19 08:06 IMPRESSION: 4 mm stone at the left UPJ is causing moderate hydronephrosis. There is minimal bilateral nephrolithiasis. Patient got fairly significant relief after the IV Toradol, .4 mg of oral Flomax was given. Urine returned with many bacteria and nitrite positive so a culture was initiated. 04/17/19 09:18 Discussed discharge with the patient but he became chilled and had an increase in pain. 1 mg of IV Dilaudid was given which gave him good improvement in the discomfort. 500 mg of IV Levaquin was hung and a CBC and BMP obtained. CBC and BMP were reassuring, normal including white count, creatinine and BUN. 04/17/19 09:31 Dr. Lunsford agreed to see the patient to consider admission not only due to the proximal left nephrolithiasis with hydronephrosis but UTI and difficulty controlling pain. Departure - Departure Time of Disposition: 10:24 Disposition: Admitted As Inpatient 68 Clinical Impression: UTI, Urinary tract infectious disease, Left nephrolithiasis - Discharge Information Sepsis Event Note - Evaluation Sepsis Screening Result: No Definite Risk - Focused Exam Vital Signs: Vital Signs Temp Pulse Resp BP Pulse Ox 04/17/19 08:38 98.3 F 66 16 144/78 H 99 04/17/19 06:51 96.8 F 66 18 150/94 H 96 Date Exam was Performed: 04/17/19 Time Exam was Performed: 18:07 - My Orders Last 24 Hours: My Active Orders 04/17/19 08:10 CULTURE URINE [RM] Stat - Assessment/Plan Last 24 Hours: My Active Orders 04/17/19 08:10 CULTURE URINE [RM] Stat
[2019-04-17] MEDS ORDERED: Tamsulosin 0.4 MG Cap.ER PO ONE (07:34)
--- NOTE | 2019-04-17 07:46 | CRLCT ---
INDICATION: Left flank pain. TECHNIQUE: CT abdomen and pelvis without contrast. COMPARISON: 02/25/2019. FINDINGS: Lower chest: Unremarkable. Liver: Normal in size and attenuation. No masses. Gallbladder and bile ducts: Post cholecystectomy. Pancreas: Unremarkable. No mass or inflammation. Spleen: Normal in size. No masses. Adrenal glands: Normal in size. No nodules. Kidneys: A 4 mm stone is present at the left ureteropelvic junction causing moderate hydronephrosis. Few tiny stones remain in each kidney. GI tract: Unremarkable. Normal in caliber. No sign of mass or inflammation. Normal appendix. Vasculature: Unremarkable. Lymph nodes: No lymphadenopathy. Abdominal wall/Omentum/Peritoneum: Unremarkable. No sign of mass or infiltration. No free air or significant free fluid. Pelvis: Unremarkable. No pelvic masses. Bones: Unremarkable for age. IMPRESSION: 4 mm stone at the left UPJ is causing moderate hydronephrosis. There is minimal bilateral nephrolithiasis. Dictated by Judson Cooper MD @ 04/17/2019 7:44:23 AM Please note that all CT scans at this facility use dose modulation, iterative reconstruction, and/or weight-based dosing when appropriate to reduce radiation dose to as low as reasonably achievable. Dictated by: Judson Cooper MD @ 04/17/2019 07:44:28 (Electronically Signed)
[2019-04-17] MEDS ORDERED: Levofloxacin/Dextrose 5%-Water 500 MG in Premix Bag 1 BAG IV ONE (08:24)
[2019-04-17] MEDS ORDERED: HYDROmorphone 1 MG/ML Syringe IVPUSH ONE (08:41)
--- NOTE | 2019-04-17 09:49 | PCM.HP.2 ---
H&P History of Present Illness - General Date of Service: 04/17/19 Admit Problem/Dx: Admission Diagnosis/Problem Admission Diagnosis/Problem Pain Source of Information: Patient, Old Records, Provider, RN Notes Reviewed History Limitations: Reports: No Limitations - History of Present Illness Initial Comments - Free Text/Narative: Mr. Polk is a 58-year-old gentleman who was admitted through the emergency department with left lower quadrant abdominal pain and left flank pain secondary to a left ureteral calculus. On evaluation emergency department was also found to have evidence of urinary tract infection, urine cultures been obtained, and he has been started on antibiotic therapy. Pain is described as an intense ache, no precipitating or relieving factors. Vital signs have been stable and there is no evidence of underlying sepsis. CT scan of the abdomen pelvis was obtained and shows a 4 mm calculus at the ureteral vesicular junction. There was some evidence of hydronephrosis. left flank/ groin Pain Score (Numeric/FACES): 10 - Related Data Allergies/Adverse Reactions: Allergies Allergy/AdvReac Type Severity Reaction Status Date / Time amoxicillin [From Augmentin] Allergy Hives Verified 02/25/19 04:26 clavulanic acid Allergy Hives Verified 02/25/19 04:26 [From Augmentin] zinc oxide Allergy Rash Verified 02/25/19 04:26 foam tape Allergy Rash Uncoded 02/25/19 04:26 Home Medications: Home Meds Calcium Cit/Mgox/Vit D3/B6/Min [Calcium Citrate Plus Tablet] 1 each PO BID 12/22 [History] Cyanocobalamin (Vitamin B-12) [B-12] 2,500 mcg SL DAILY 12/22/13 [History] Ped Multivit #17/Iron Fumarate [Pv Kids Vitamins+Iron Tab Chew] 1 tab PO BID [History] Cyanocobalamin (Vitamin B12) [Vitamin B12] 1,000 mcg IM Q30D 05/03/14 [History] Cholecalciferol (Vitamin D3) [Vitamin D] 2,500 units PO DAILY 05/09/15 [History] Ascorbic Acid [Vitamin C] 1,000 mg PO BID 03/19/16 [History] Citalopram Hydrobromide [Celexa] 40 mg PO DAILY 03/19/16 [History] Ergocalciferol (Vitamin D2) [Vitamin D] 2,500 unit PO DAILY 03/19/16 [History] Hydrocodone/Acetaminophen [[place] 10-325] 1 - 2 tab PO Q12H PRN 09/04/16 [History ] Vitamin B Complex 1 tab PO DAILY 09/04/16 [History] Lisinopril 5 mg PO DAILY 07/28/18 [History] Pantoprazole [ProTONIX] 40 mg PO DAILY 04/06/19 [History] oxyCODONE HCl/Acetaminophen [Percocet 5-325 mg Tablet] 1 each PO Q4HR PRN #36 tablet 04/06/19 [Rx] Past Medical History - Past Health History Medical/Surgical History: Denies Medical/Surgical History HEENT History: Reports: Hard of Hearing, Impaired Vision Other HEENT History: wears glasses and hearing aides broken jaw Cardiovascular History: Reports: Heart Murmur, Hypertension, SOB on Exertion Other Cardiovascular History: hypertension resolved with RNY surgery 4 years ago Respiratory History: Reports: Intubation, Previous, Sleep Apnea Other Respiratory History: no trouble with sleep apnea after RNY surgery. Gastrointestinal History: Reports: Bowel Obstruction, Cholelithiasis, GERD Genitourinary History: Reports: Other (See Below) Other Genitourinary History: after appendectomy kidney infection Musculoskeletal History: Reports: Back Pain, Chronic, Gout, Osteoarthritis, Other (See Below) Other Musculoskeletal History: left shoulder pain. s/p lt rotator cuff repair Neurological History: Reports: Concussion Psychiatric History: Reports: Depression Endocrine/Metabolic History: Reports: Obesity/BMI 30+, Vitamin D Deficiency Other Endocrine/Metabolic History: blood sugar high at times before gastric bypass Hematologic History: Reports: Anemia, B12 Deficiency, Folic Acid, Iron Deficiency Immunologic History: Reports: None Oncologic (Cancer) History: Reports: None Dermatologic History: Reports: Psoriasis Other Dermatologic History: psoriasis resolved after weight loss - Infectious Disease History Infectious Disease History: Reports: Chicken Pox - Past Surgical History Head Surgeries/Procedures: Reports: None HEENT Surgical History: Reports: Oral Surgery Cardiovascular Surgical History: Reports: None Respiratory Surgical History: Reports: None GI Surgical History: Reports: Appendectomy, Bariatric Procedure, Cholecystectomy , Colonoscopy, Hernia, Abdominal, Small Bowel Male Surgical History: Reports: None Endocrine Surgical History: Reports: None Neurological Surgical History: Reports: None Musculoskeletal Surgical History: Reports: Other (See Below) Other Musculoskeletal Surgeries/Procedures:: trigger finger repair. repair rotator cuff Dermatological Surgical History: Reports: None Social & Family History - Family History Family Medical History: Noncontributory - Tobacco Use Smoking Status *Q: Current Every Day Smoker Years of Tobacco use: 50 Packs/Tins Daily: 0.5 - Caffeine Use Caffeine Use: Reports: Energy Drinks, Soda Other Caffeine Use: rarely - Recreational Drug Use Recreational Drug Use: No - Living Situation & Occupation Living situation: Reports: Single H&P Review of Systems - Review of Systems: Review Of Systems: See Below General: Reports: No Symptoms. Denies: Fever, Chills, Weakness HEENT: Reports: No Symptoms Pulmonary: Reports: No Symptoms Cardiovascular: Reports: No Symptoms Gastrointestinal: Reports: Abdominal Pain. Denies: Difficulty Swallowing, Distension, Hematemesis, Hematochezia, Melena, Nausea, Vomiting Genitourinary: Reports: Flank Pain. Denies: Dysuria, Frequency, Burning, Pain, Urgency, Incontinence, Hematuria, Retention Musculoskeletal: Reports: No Symptoms Skin: Reports: No Symptoms Psychiatric: Reports: No Symptoms Neurological: Reports: No Symptoms Exam - Exam Exam: See Below - Vital Signs Vital Signs: Last Vital Signs Temp 98.3 F 04/17/19 08:38 Pulse 66 04/17/19 08:38 Resp 16 04/17/19 08:38 BP 144/78 H 04/17/19 08:38 Pulse Ox 99 04/17/19 08:38 Weight: 320 lb 15.889 oz - Exam General: Alert, Oriented, Cooperative, Mild Distress HEENT: Conjunctiva Clear, Hearing Intact, Mucosa Moist & [place], Normal Nasal Septum, Posterior Pharynx Clear, Pupils Equal Neck: Supple, Trachea Midline, +2 Carotid Pulse wo Bruit Lungs: Clear to Auscultation, Normal Respiratory Effort Cardiovascular: Regular Rate, Regular Rhythm, Normal S1, Normal S2. No: Systolic Murmur, Diastolic Murmur GI/Abdominal Exam: Soft, Non-Tender, No Organomegaly, No Distention Back Exam: Normal Inspection, Full Range of Motion. No: CVA Tenderness (R), CVA Tenderness (L) Extremities: Non-Tender, No Pedal Edema Skin: Warm, Dry, Intact Neurological: Cranial Nerves Intact, Strength Equal Bilateral, Normal Speech, Normal Tone, Sensation Intact. No: Focal Deficit Neuro Extensive - Mental Status: Alert, Oriented x3, Normal Mood/Affect, Normal Cognition, Memory Intact - Patient Data Lab Results Last 24 hrs: Laboratory Results - last 24 hr 04/17/19 04/17/19 04/17/19 Range/Units 07:05 08:21 08:32 WBC 6.5 (4.5-11.0) K/uL RBC 4.93 (4.30-5.90) M/uL Hgb 15.1 H (12.0-15.0) g/dL Hct 46.9 (40.0-54.0) % MCV 95 (80-98) fL MCH 31 (27-31) pg MCHC 32 (32-36) % Plt Count 153 (150-400) K/uL Neut % (Auto) 92 H (36-66) % Lymph % (Auto) 6 L (24-44) % [place] % (Auto) 1 L (2-6) % Eos % (Auto) 1 L (2-4) % Baso % (Auto) 0 (0-1) % Sodium 141 (140-148) mmol/L Potassium 3.8 (3.6-5.2) mmol/L Chloride 103 (100-108) mmol/L Carbon Dioxide 28 (21-32) mmol/L Anion Gap 10.5 (5.0-14.0) mmol/L BUN 16 D (7-18) mg/dL Creatinine 1.2 (0.8-1.3) mg/dL Est Cr Clr Drug Dosing 79.92 mL/min Estimated GFR (MDRD) > 60 (>60) Glucose 81 (74-106) mg/dL Calcium 8.9 (8.5-10.1) mg/dL Urine Color Yellow (YELLOW) Urine Appearance Cloudy A (CLEAR) Urine pH 6.0 (5.0-8.0) Ur Specific [place] 1.020 (1.008-1.030) Urine Protein Negative (NEGATIVE) mg/dL Urine Glucose (UA) Negative (NEGATIVE) mg/dL Urine Ketones Negative (NEGATIVE) mg/dL Urine Occult Blood Moderate H (NEGATIVE) Urine Nitrite Positive H (NEGATIVE) Urine Bilirubin Negative (NEGATIVE) Urine Urobilinogen 0.2 (0.2-1.0) EU/dL Ur Leukocyte Esterase Small H (NEGATIVE) Urine RBC 5-10 H (0-5) Urine WBC 10-20 H (0-5) Ur Epithelial Cells Not seen Amorphous Sediment Not seen Urine Bacteria Many Urine Mucus Not seen Result Diagrams: 04/17/19 08:21 04/17/19 08:32 Sepsis Event Note - Evaluation Sepsis Screening Result: No Definite Risk - Focused Exam Vital Signs: Vital Signs Temp Pulse Resp BP Pulse Ox 04/17/19 08:38 98.3 F 66 16 144/78 H 99 04/17/19 06:51 96.8 F 66 18 150/94 H 96 Date Exam was Performed: 04/17/19 Time Exam was Performed: 09:42 *Q Meaningful Use (ADM) - VTE *Q VTE Pharmacological Contraindications *Q: Not Candidate LT Anticoag - VTE Risk Assess *Q Each Risk Factor Represents 1 Point: Age 41 - 59 years, Obesity ( BMI > 25 kg/m2 ) Total Score 1 Point Risk Factors: 2 Each Risk Factor Represents 2 Points: None Total Score 2 Point Risk Factors: 0 Each Risk Factor Represents 3 Points: None Total Score 3 Point Risk Factors: 0 Each Risk Factor Represents 5 Points: None Total Score 5 Point Risk Factors: 0 Venous Thromboembolism Risk Factor Score *Q: 2 Problem List Initiated/Reviewed/Updated: Yes Orders Last 24hrs: Active Orders 24 hr Category Date Time Status Patient Status Manage Transfer [TRANSFER] Routine ADT 04/17/19 09:20 Active CULTURE URINE [RM] Stat Lab 04/17/19 08:10 Received Resuscitation Status Routine Resus Stat 04/17/19 09:22 Ordered Assessment/Plan Comment:: ASSESSMENT AND PLAN LEFT URETERAL CALCULUS-intermittent episodes of more mild pain over the past few weeks, very severe this morning and presented to the emergency department. CT scan shows a 4 mm calculus at the left ureteral vesicular junction. -Flomax 0.4 mg p.o. daily -IV fluids for hydration -Pain and nausea medication as needed URINARY TRACT INFECTION-no evidence of underlying sepsis -Urine culture pending -Ceftriaxone 1 g IV every 24 hours pending culture result MAINTENANCE ISSUES -DVT prophylaxis; SCUDs -GI prophylaxis; not indicated -Magdal[place] catheter; not indicated -Nutrition; regular diet -Nicotine dependence; not required CODE STATUS-FULL CODE ADMISSION STATUS-patient will be admitted to inpatient status, expect at least a 2 night hospital stay for evaluation and management of problems as outlined above. At the time of this admission I do not reasonably expected evaluation and management of this problem will require more than a 96 hour hospital stay. DISPOSITION-anticipate discharge to home after the hospital stay. PRIMARY CARE PROVIDER-Dr. Soliz - Mortality Measure Prognosis:: Good
[2019-04-17] MEDS ORDERED: Sodium Chloride 0.9% 10 ML Syringe FLUSH PRN (10:04)
[2019-04-17] MEDS ORDERED: Ondansetron 4 MG/2 ML SDV IV PRN (10:04)
[2019-04-17] MEDS ORDERED: Polyethylene Glycol 3350 Powder 17 GM Packet PO PRN (10:04)
[2019-04-17] MEDS: HYDROmorphone 0.5 MG/0.5 ML Syringe IVPUSH PRN ×5 (10:46→22:06)
[2019-04-17] MEDS: Citalopram 20 MG Tab PO SCH (10:49)
[2019-04-17] MEDS: Pantoprazole 40 MG Tab.CR PO SCH (10:49)
[2019-04-17] MEDS: cefTRIAXone 1 GM in Sodium Chloride 0.9% 50 ML IV SCH (10:49)
[2019-04-17] MEDS ORDERED: Lisinopril 5 MG Tab PO SCH ×2 (11:00)
[2019-04-17] MEDS: Acetaminophen 325 MG Tab PO PRN ×2 (11:07→17:07)
[2019-04-17] MEDS ORDERED: Ibuprofen 400 MG Tab PO ONE (18:11)
[2019-04-18] MEDS: HYDROmorphone 0.5 MG/0.5 ML Syringe IVPUSH PRN ×7 (01:22→20:15)
[2019-04-18] MEDS: Pantoprazole 40 MG Tab.CR PO SCH (07:37)
[2019-04-18] MEDS: Acetaminophen 325 MG Tab PO PRN ×3 (07:43→20:15)
[2019-04-18] MEDS: Tamsulosin 0.4 MG Cap.ER PO SCH (08:11)
[2019-04-18] MEDS: Citalopram 20 MG Tab PO SCH (08:11)
--- NOTE | 2019-04-18 10:19 | PCM.PN ---
- General Info Date of Service: 04/18/19 Subjective Update: Mr. Polk has been stable since admission. He did have 1 temperature elevation, after admission but none since then. Pain has improved, but not totally resolved. No evidence that he has passed a stone at this point. White blood cell count is elevated from admission likely secondary to the UTI. Renal function worsened and he will be started on some IV fluids. Functional Status: Reports: Tolerating Diet, Ambulating, Urinating - Review of Systems General: Reports: Fever, Weakness, Chills Pulmonary: Reports: No Symptoms Cardiovascular: Reports: No Symptoms Gastrointestinal: Reports: No Symptoms Genitourinary: Reports: Flank Pain. Denies: Dysuria, Frequency, Burning, Pain, Retention - Patient Data Vitals - Most Recent: Last Vital Signs Temp 96.6 F 04/18/19 07:33 Pulse 77 04/18/19 07:35 Resp 16 04/18/19 07:33 BP 94/54 L 04/18/19 07:35 Pulse Ox 96 04/18/19 07:33 Weight - Most Recent: 324 lb 4.8 oz I&O - Last 24 Hours: Intake & Output 04/17/19 04/18/19 04/18/19 22:59 06:59 14:59 Intake Total 500 Output Total 350 150 Balance 150 -150 Lab Results Last 24 Hours: Laboratory Results - last 24 hr 04/18/19 04/18/19 Range/Units 04:15 04:15 WBC 17.9 H (4.5-11.0) K/uL RBC 4.60 (4.30-5.90) M/uL Hgb 14.1 (12.0-15.0) g/dL Hct 43.7 (40.0-54.0) % MCV 95 (80-98) fL MCH 31 (27-31) pg MCHC 32 (32-36) % Plt Count 134 L (150-400) K/uL Neut % (Auto) 89 H (36-66) % Lymph % (Auto) 3 L (24-44) % [place]verse % (Auto) 8 H (2-6) % Eos % (Auto) 0 L (2-4) % Baso % (Auto) 0 (0-1) % Sodium 139 L (140-148) mmol/L Potassium 3.6 (3.6-5.2) mmol/L Chloride 105 (100-108) mmol/L Carbon Dioxide 24 (21-32) mmol/L Anion Gap 13.6 (5.0-14.0) mmol/L BUN 29 H D (7-18) mg/dL Creatinine 1.8 H (0.8-1.3) mg/dL Est Cr Clr Drug Dosing 53.28 mL/min Estimated GFR (MDRD) 39 L (>60) Glucose 96 (74-106) mg/dL Calcium 8.1 L (8.5-10.1) mg/dL Michael Results Last 24 Hours: Microbiology 04/17/19 08:10 Urine Culture - Preliminary Urine, Clean Catch Med Orders - Current: Current Medications Acetaminophen (Tylenol) 650 mg PO Q4H PRN PRN Reason: Pain (Mild 1-3)/fever Last Admin: 04/18/19 07:43 Dose: 650 mg Citalopram Hydrobromide (Celexa) 40 mg PO DAILY [facility] Last Admin: 04/18/19 08:11 Dose: 40 mg Hydromorphone HCl (Dilaudid) 0.5 mg IVPUSH Q2H PRN PRN Reason: Pain Last Admin: 04/18/19 07:43 Dose: 0.5 mg Ceftriaxone Sodium 1 gm/ (Sodium Chloride) 50 mls @ 100 mls/hr IV Q24H [facility] Last Admin: 04/17/19 10:49 Dose: 100 mls/hr Sodium Chloride (Normal Saline) 1,000 mls @ 125 mls/hr IV ASDIRECTED [facility] Lisinopril (Prinivil) 2.5 mg PO DAILY [facility] Ondansetron HCl (Zofran) 4 mg IV Q4H PRN PRN Reason: Nausea/Vomiting Pantoprazole Sodium (Protonix) 40 mg PO DAILY@0730 [facility] Last Admin: 04/18/19 07:37 Dose: 40 mg Polyethylene Glycol (Miralax) 17 gm PO DAILY PRN PRN Reason: Constipation Sodium Chloride (Saline Flush) 10 ml FLUSH ASDIRECTED PRN PRN Reason: Keep Vein Open Tamsulosin HCl (Flomax) 0.4 mg PO DAILY [facility] Last Admin: 04/18/19 08:11 Dose: 0.4 mg Discontinued Medications Hydromorphone HCl (Dilaudid) 1 mg IVPUSH ONETIME ONE Stop: 04/17/19 08:42 Last Admin: 04/17/19 08:47 Dose: 1 mg Levofloxacin/Dextrose 500 mg/ (Premix) 100 mls @ 100 mls/hr IV ONETIME ONE Stop: 04/17/19 09:23 Last Admin: 04/17/19 08:34 Dose: 100 mls/hr Ibuprofen (Motrin) 400 mg PO ONETIME ONE Stop: 04/17/19 18:12 Last Admin: 04/17/19 18:31 Dose: 400 mg Ketorolac Tromethamine (Toradol) 30 mg IVPUSH ONETIME ONE Stop: 04/17/19 07:06 Last Admin: 04/17/19 07:11 Dose: 30 mg Lisinopril (Prinivil) 5 mg PO DAILY [facility] Lisinopril (Prinivil) 2.5 mg PO DAILY [facility] Last Admin: 04/17/19 10:56 Dose: 2.5 mg Tamsulosin HCl (Flomax) 0.4 mg PO ONETIME ONE Stop: 04/17/19 07:35 Last Admin: 04/17/19 07:38 Dose: 0.4 mg - Exam Quality Assessment: DVT Prophylaxis General: Alert, Oriented, Cooperative, Mild Distress Lungs: Clear to Auscultation, Normal Respiratory Effort Cardiovascular: Regular Rate, Regular Rhythm, No Murmurs GI/Abdominal Exam: Soft, Non-Tender, No Organomegaly, No Distention Back Exam: CVA Tenderness (L) Sepsis Event Note - Evaluation Sepsis Screening Result: No Definite Risk - Focused Exam Vital Signs: Vital Signs Temp Pulse Resp BP Pulse Ox 04/18/19 07:35 77 94/54 L 04/18/19 07:33 96.6 F 77 16 93/47 L 96 04/18/19 05:04 97.5 F 67 14 93/49 L 95 04/18/19 02:00 99.1 F 78 16 99/45 L 93 L Date Exam was Performed: 04/18/19 Time Exam was Performed: 10:15 - Problem List Review Problem List Initiated/Reviewed/Updated: Yes - My Orders Last 24 Hours: My Active Orders 04/17/19 09:22 Resuscitation Status Routine 04/17/19 10:04 Patient Status [ADT] Routine Ambulate [RC] QID Height and Weight [RC] DAILY Intake and Output [RC] QSHIFT Notify Provider Vital Signs [RC] ASDIRECTED Oxygen Therapy [RC] PRN Peripheral IV Care [RC] Q12H Pulse Oximetry [RC] CONTINUOUS Up ad [place] [RC] ASDIRECTED Up to Chair [RC] QID VTE/DVT Education [RC] Per Unit Routine Vital Signs [RC] Q4H Acetaminophen [Tylenol] 650 mg PO Q4H PRN HYDROmorphone [Dilaudid] 0.5 mg IVPUSH Q2H PRN Ondansetron [Zofran] 4 mg IV Q4H PRN Sodium Chloride 0.9% [Saline Flush] 10 ml FLUSH ASDIRECTED PRN polyethylene glycoL 3350 [MiraLAX] 17 gm PO DAILY PRN Peripheral IV Insertion Adult [OM.PC] Routine Sequential Compression Device [OM.PC] Per Unit Routine VTE Pharmacological Contraindications [AST] Per Unit Routine 04/17/19 11:00 Citalopram [Celexa] 40 mg PO DAILY Pantoprazole [ProTONIX] 40 mg PO DAILY@0730 cefTRIAXone [Rocephin] 1 gm Sodium Chloride 0.9% [Normal Saline] 50 ml IV Q24H 04/18/19 09:00 Tamsulosin [Flomax] 0.4 mg PO DAILY lisinopriL [Prinivil] 2.5 mg PO DAILY 04/18/19 10:15 Sodium Chloride 0.9% [Normal Saline] 1,000 ml IV ASDIRECTED 04/19/19 05:00 BASIC METABOLIC PANEL,BMP [CHEM] Timed CBC WITH AUTO DIFF [HEME] Timed - Plan Plan:: ASSESSMENT AND PLAN LEFT URETERAL CALCULUS-persistent pain, improved from admission -Flomax 0.4 mg p.o. daily -IV fluids for hydration -Pain and nausea medication as needed URINARY TRACT INFECTION-1 temperature elevation after admission, stable since then -Urine culture pending -Ceftriaxone 1 g IV every 24 hours pending culture result ACUTE KIDNEY INJURY-creatinine elevated from admission -IV fluids -Monitor urine output and renal function MAINTENANCE ISSUES -DVT prophylaxis; SCUDs -GI prophylaxis; not indicated -Magdaleno catheter; not indicated -Nutrition; regular diet -Nicotine dependence; not required CODE STATUS-FULL CODE ADMISSION STATUS-patient will be admitted to inpatient status, expect at least a 2 night hospital stay for evaluation and management of problems as outlined above. At the time of this admission I do not reasonably expected evaluation and management of this problem will require more than a 96 hour hospital stay. DISPOSITION-anticipate discharge to home after the hospital stay. PRIMARY CARE PROVIDER-Dr. Soliz
[2019-04-18] MEDS: Lisinopril 2.5 MG Tab PO SCH (10:55)
[2019-04-18] MEDS: cefTRIAXone 1 GM in Sodium Chloride 0.9% 50 ML IV SCH (11:00)
[2019-04-18] MEDS: Sodium Chloride 0.9% 1,000 ML IV SCH ×2 (13:09→20:22)
[2019-04-19] MEDS: HYDROmorphone 0.5 MG/0.5 ML Syringe IVPUSH PRN ×6 (00:08→11:27)
[2019-04-19] MEDS: Sodium Chloride 0.9% 1,000 ML IV SCH (04:02)
[2019-04-19] MEDS: Pantoprazole 40 MG Tab.CR PO SCH (07:17)
[2019-04-19] MEDS: Citalopram 20 MG Tab PO SCH (10:08)
[2019-04-19] MEDS: Tamsulosin 0.4 MG Cap.ER PO SCH (10:08)
[2019-04-19] MEDS: Lisinopril 2.5 MG Tab PO SCH (10:09)
[2019-04-19] MEDS: cefTRIAXone 1 GM in Sodium Chloride 0.9% 50 ML IV SCH (11:27)
--- NOTE | 2019-04-19 12:09 | PCM.PN ---
- General Info Date of Service: 04/19/19 Subjective Update: Mr. Polk continues to experience temperature elevation and chills. Vital signs have otherwise been stable, flank pain improved but not totally resolved. Functional Status: Reports: Pain Controlled, Tolerating Diet, Ambulating, Urinating - Review of Systems General: Reports: Fever, Weakness, Chills Pulmonary: Reports: No Symptoms Cardiovascular: Reports: No Symptoms Gastrointestinal: Reports: No Symptoms Genitourinary: Reports: Flank Pain. Denies: Dysuria, Frequency, Burning, Pain, Urgency, Incontinence, Hematuria, Retention - Patient Data Vitals - Most Recent: Last Vital Signs Temp 98.4 F 04/19/19 11:26 Pulse 71 04/19/19 11:26 Resp 18 04/19/19 11:26 BP 136/89 04/19/19 11:26 Pulse Ox 95 04/19/19 11:26 Weight - Most Recent: 328 lb 11.347 oz I&O - Last 24 Hours: Intake & Output 04/18/19 04/19/19 04/19/19 22:59 06:59 14:59 Intake Total 1375 1907 1050 Output Total 300 650 200 Balance 1075 1257 850 Lab Results Last 24 Hours: Laboratory Results - last 24 hr 04/19/19 04/19/19 Range/Units 04:54 04:54 WBC 12.2 H (4.5-11.0) K/uL RBC 4.33 (4.30-5.90) M/uL Hgb 13.2 (12.0-15.0) g/dL Hct 41.2 (40.0-54.0) % MCV 95 (80-98) fL MCH 31 (27-31) pg MCHC 32 (32-36) % Plt Count 95 L (150-400) K/uL Neut % (Auto) 83 H (36-66) % Lymph % (Auto) 8 L (24-44) % Bartholomew % (Auto) 8 H (2-6) % Eos % (Auto) 0 L (2-4) % Baso % (Auto) 0 (0-1) % Sodium 139 L (140-148) mmol/L Potassium 3.7 (3.6-5.2) mmol/L Chloride 106 (100-108) mmol/L Carbon Dioxide 23 (21-32) mmol/L Anion Gap 13.7 (5.0-14.0) mmol/L BUN 31 H (7-18) mg/dL Creatinine 1.7 H (0.8-1.3) mg/dL Est Cr Clr Drug Dosing 56.41 mL/min Estimated GFR (MDRD) 42 L (>60) Glucose 92 (74-106) mg/dL Calcium 8.1 L (8.5-10.1) mg/dL Michael Results Last 24 Hours: Microbiology 04/17/19 08:10 Urine Culture - Final Urine, Clean Catch Klebsiella Pneumonia Ss Pneumo 04/18/19 11:56 MRSA Culture - Preliminary Nares, Unspecified NO MRSA ISOLATED Med Orders - Current: Current Medications Acetaminophen (Tylenol) 650 mg PO Q4H PRN PRN Reason: Pain (Mild 1-3)/fever Last Admin: 04/18/19 20:15 Dose: 650 mg Citalopram Hydrobromide (Celexa) 40 mg PO DAILY [facility] Last Admin: 04/19/19 10:08 Dose: 40 mg Hydromorphone HCl (Dilaudid) 2 mg PO Q3H PRN PRN Reason: Pain Ceftriaxone Sodium 1 gm/ (Sodium Chloride) 50 mls @ 100 mls/hr IV Q24H [facility] Last Admin: 04/19/19 11:27 Dose: 100 mls/hr Lisinopril (Prinivil) 2.5 mg PO DAILY [facility] Last Admin: 04/19/19 10:09 Dose: 2.5 mg Ondansetron HCl (Zofran) 4 mg IV Q4H PRN PRN Reason: Nausea/Vomiting Pantoprazole Sodium (Protonix) 40 mg PO DAILY@0730 [facility] Last Admin: 04/19/19 07:17 Dose: 40 mg Polyethylene Glycol (Miralax) 17 gm PO DAILY PRN PRN Reason: Constipation Sodium Chloride (Saline Flush) 10 ml FLUSH ASDIRECTED PRN PRN Reason: Keep Vein Open Tamsulosin HCl (Flomax) 0.4 mg PO DAILY [facility] Last Admin: 04/19/19 10:08 Dose: 0.4 mg Discontinued Medications Hydromorphone HCl (Dilaudid) 1 mg IVPUSH ONETIME ONE Stop: 04/17/19 08:42 Last Admin: 04/17/19 08:47 Dose: 1 mg Hydromorphone HCl (Dilaudid) 0.5 mg IVPUSH Q2H PRN PRN Reason: Pain Last Admin: 04/19/19 11:27 Dose: 0.5 mg Levofloxacin/Dextrose 500 mg/ (Premix) 100 mls @ 100 mls/hr IV ONETIME ONE Stop: 04/17/19 09:23 Last Admin: 04/17/19 08:34 Dose: 100 mls/hr Sodium Chloride (Normal Saline) 1,000 mls @ 125 mls/hr IV ASDIRECTED [facility] Last Admin: 04/19/19 04:02 Dose: 125 mls/hr Ibuprofen (Motrin) 400 mg PO ONETIME ONE Stop: 04/17/19 18:12 Last Admin: 04/17/19 18:31 Dose: 400 mg Ketorolac Tromethamine (Toradol) 30 mg IVPUSH ONETIME ONE Stop: 04/17/19 07:06 Last Admin: 04/17/19 07:11 Dose: 30 mg Lisinopril (Prinivil) 5 mg PO DAILY [facility] Lisinopril (Prinivil) 2.5 mg PO DAILY [facility] Last Admin: 04/17/19 10:56 Dose: 2.5 mg Tamsulosin HCl (Flomax) 0.4 mg PO ONETIME ONE Stop: 04/17/19 07:35 Last Admin: 04/17/19 07:38 Dose: 0.4 mg - Exam Quality Assessment: DVT Prophylaxis General: Alert, Oriented, Cooperative, Mild Distress Lungs: Clear to Auscultation, Normal Respiratory Effort Cardiovascular: Regular Rate, Regular Rhythm, No Murmurs GI/Abdominal Exam: Soft, Non-Tender, No Organomegaly, No Distention Back Exam: No: CVA Tenderness (R), CVA Tenderness (L) Sepsis Event Note - Evaluation Sepsis Screening Result: No Definite Risk - Focused Exam Vital Signs: Vital Signs Temp Pulse Resp BP BP Pulse Ox 04/19/19 11:26 98.4 F 71 18 136/89 95 04/19/19 10:09 122/69 04/19/19 07:29 96 04/19/19 07:24 97.2 F 68 14 122/69 96 04/19/19 03:59 98.7 F 70 18 133/84 98 04/19/19 01:27 98.0 F Date Exam was Performed: 04/19/19 Time Exam was Performed: 12:09 - Problem List Review Problem List Initiated/Reviewed/Updated: Yes - My Orders Last 24 Hours: My Active Orders 04/18/19 11:56 CULTURE MRSA [RM] Routine 04/19/19 12:05 Convert IV to Saline Lock [OM.PC] Routine 04/19/19 12:06 HYDROmorphone [Dilaudid] 2 mg PO Q3H PRN 04/20/19 05:00 BASIC METABOLIC PANEL,BMP [CHEM] Timed CBC WITH AUTO DIFF [HEME] Timed - Plan Plan:: ASSESSMENT AND PLAN LEFT URETERAL CALCULUS-persistent pain, improved from admission -Flomax 0.4 mg p.o. daily -Saline lock IV -Pain and nausea medication as needed URINARY TRACT INFECTION-recurrent fevers, urine culture growing pansensitive Klebsiella -Ceftriaxone 1 g IV every 24 hours pending culture result ACUTE KIDNEY INJURY-renal function stable from yesterday -Monitor urine output and renal function MAINTENANCE ISSUES -DVT prophylaxis; SCUDs -GI prophylaxis; not indicated -Magdaleno catheter; not indicated -Nutrition; regular diet -Nicotine dependence; not required CODE STATUS-FULL CODE ADMISSION STATUS-patient will be admitted to inpatient status, expect at least a 2 night hospital stay for evaluation and management of problems as outlined above. At the time of this admission I do not reasonably expected evaluation and management of this problem will require more than a 96 hour hospital stay. DISPOSITION-anticipate discharge to home after the hospital stay. PRIMARY CARE PROVIDER-Dr. Soliz
[2019-04-19] MEDS: HYDROmorphone 2 MG Tab PO PRN ×3 (14:11→21:38)
[2019-04-19] MEDS: Acetaminophen 325 MG Tab PO PRN ×2 (18:07→21:39)
[2019-04-20] MEDS: Pantoprazole 40 MG Tab.CR PO SCH (08:23)
[2019-04-20] MEDS ORDERED: Potassium Chloride 20 MEQ Tab.ER PO ONE (09:00)
[2019-04-20] MEDS: Tamsulosin 0.4 MG Cap.ER PO SCH (09:30)
[2019-04-20] MEDS: Citalopram 20 MG Tab PO SCH (09:30)
[2019-04-20] MEDS: Lisinopril 2.5 MG Tab PO SCH (09:31)
--- NOTE | 2019-04-20 11:01 | PCM.DCSUM1 ---
Discharge Summary - Hospital Course Brief History: Mr. Polk is a 58-year-old gentleman who was admitted through the emergency department with left flank pain, weakness, fever, secondary to urinary tract infection and a left ureteral calculus. - Discharge Data Discharge Date: 04/20/19 Discharge Disposition: Home, Self-Care 01 Condition: Good - Referral to Home Health Primary Care Physician: Kenan Soliz MD - Discharge Diagnosis/Problem(s) (1) Ureteral calculus, left SNOMED Code(s): 78224651 ICD Code: N20.1 - CALCULUS OF URETER Status: Acute Current Visit: Yes (2) KENROY (acute kidney injury) SNOMED Code(s): 62633964, 98304183 ICD Code: N17.9 - ACUTE KIDNEY FAILURE, UNSPECIFIED Status: Acute Current Visit: Yes (3) UTI, Urinary tract infectious disease SNOMED Code(s): 63781059 ICD Code: N39.0 - URINARY TRACT INFECTION, SITE NOT SPECIFIED Status: Acute Current Visit: Yes - Patient Summary/Data Hospital Course: Mr. Polk is a 58-year-old gentleman who was admitted through the emergency department with left lower quadrant abdominal pain and left flank pain secondary to a left ureteral calculus. On evaluation emergency department was also found to have evidence of urinary tract infection, urine cultures been obtained, and he has been started on antibiotic therapy. Pain is described as an intense ache, no precipitating or relieving factors. Vital signs have been stable and there is no evidence of underlying sepsis. CT scan of the abdomen pelvis was obtained and shows a 4 mm calculus at the ureteral vesicular junction. There was some evidence of hydronephrosis. On admission he was continued on IV antibiotic therapy with ceftriaxone. Medication and medication for nausea were ordered as needed. He did develop temperature elevation after admission and also the following day after admission. By the time of discharge he had been afebrile for a period of 24 hours. Culture grew out Klebsiella sensitive to cephalosporins. Be discharged home with an additional 4 days of oral antibiotic therapy with cephalexin 500 mg every 6 hours. Flank pain gradually resolved and was not present at the time of discharge. He did develop transient acute kidney injury that had resolved by the time of discharge. Activity will be as tolerated and he will resume his usual diet. Follow-up appointment will be scheduled with his primary care provider within 1 week. - Patient Instructions Diet: Usual Diet as Tolerated Activity: As Tolerated Other/Special Instructions: FU appt. w/ primary care provider w/in 1 week - Discharge Plan *PRESCRIPTION DRUG MONITORING PROGRAM REVIEWED*: Not Applicable *COPY OF PRESCRIPTION DRUG MONITORING REPORT IN PATIENT YANCY: Not Applicable Prescriptions/Med Rec: Cephalexin [Keflex] 500 mg PO Q6H #16 capsule Home Medications: Home Meds Calcium Cit/Mgox/Vit D3/B6/Min [Calcium Citrate Plus Tablet] 1 each PO BID 12/22 [History] Cyanocobalamin (Vitamin B-12) [B-12] 2,500 mcg SL DAILY 12/22/13 [History] Ped Multivit #17/Iron Fumarate [Pv Kids Vitamins+Iron Tab Chew] 1 tab PO BID [History] Cholecalciferol (Vitamin D3) [Vitamin D3] 2,500 units PO DAILY 05/09/15 [History ] Ascorbic Acid [Vitamin C] 1,000 mg PO BID 03/19/16 [History] Citalopram Hydrobromide [Celexa] 40 mg PO DAILY 03/19/16 [History] Ergocalciferol (Vitamin D2) [Vitamin D] 2,500 unit PO DAILY 03/19/16 [History] Hydrocodone/Acetaminophen [Junction 10-325] 1 - 2 tab PO Q12H PRN 09/04/16 [History ] Vitamin B Complex 1 tab PO DAILY 09/04/16 [History] Lisinopril 2.5 mg PO DAILY 07/28/18 [History] Pantoprazole [ProTONIX] 40 mg PO DAILY 04/06/19 [History] Cephalexin [Keflex] 500 mg PO Q6H #16 capsule 04/20/19 [Rx] Referrals: Kenan Soliz MD [Primary Care Provider] - 04/28/19 1:30 pm (Please arrive 15 minutes francisco to register for your appointment.) - Discharge Summary/Plan Comment DC Time >30 min.: No - Patient Data Vitals - Most Recent: Last Vital Signs Temp 98 F 04/20/19 08:14 Pulse 54 L 04/20/19 08:14 Resp 16 04/20/19 08:14 BP 145/84 H 04/20/19 09:31 Pulse Ox 96 04/20/19 08:14 Weight - Most Recent: 328 lb 11.347 oz I&O - Last 24 hours: Intake & Output 04/19/19 04/20/19 04/20/19 22:59 06:59 14:59 Intake Total 620 Output Total 550 400 Balance 70 -400 Lab Results - Last 24 hrs: Laboratory Results - last 24 hr 04/20/19 04/20/19 Range/Units 04:30 04:30 WBC 8.1 (4.5-11.0) K/uL RBC 4.18 L (4.30-5.90) M/uL Hgb 12.7 (12.0-15.0) g/dL Hct 39.6 L (40.0-54.0) % MCV 95 (80-98) fL MCH 30 (27-31) pg MCHC 32 (32-36) % Plt Count 92 L (150-400) K/uL Neut % (Auto) 73 H (36-66) % Lymph % (Auto) 13 L (24-44) % Miller % (Auto) 12 H (2-6) % Eos % (Auto) 2 (2-4) % Baso % (Auto) 0 (0-1) % Sodium 141 (140-148) mmol/L Potassium 3.5 L (3.6-5.2) mmol/L Chloride 106 (100-108) mmol/L Carbon Dioxide 24 (21-32) mmol/L Anion Gap 14.5 H (5.0-14.0) mmol/L BUN 20 H (7-18) mg/dL Creatinine 1.0 (0.8-1.3) mg/dL Est Cr Clr Drug Dosing 95.90 mL/min Estimated GFR (MDRD) > 60 (>60) Glucose 87 (74-106) mg/dL Calcium 8.4 L (8.5-10.1) mg/dL NOHEMY Results - Last 24 hrs: Microbiology 04/18/19 11:56 MRSA Culture - Final Nares, Unspecified NO MRSA ISOLATED 04/17/19 08:10 Urine Culture - Final Urine, Clean Catch Klebsiella Pneumonia Ss Pneumo Med Orders - Current: Current Medications Acetaminophen (Tylenol) 650 mg PO Q4H PRN PRN Reason: Pain (Mild 1-3)/fever Last Admin: 04/19/19 21:39 Dose: 650 mg Citalopram Hydrobromide (Celexa) 40 mg PO DAILY [facility] Last Admin: 04/20/19 09:30 Dose: 40 mg Hydromorphone HCl (Dilaudid) 2 mg PO Q3H PRN PRN Reason: Pain Last Admin: 04/19/19 21:38 Dose: 2 mg Ceftriaxone Sodium 1 gm/ (Sodium Chloride) 50 mls @ 100 mls/hr IV Q24H [facility] Last Admin: 04/19/19 11:27 Dose: 100 mls/hr Lisinopril (Prinivil) 2.5 mg PO DAILY [facility] Last Admin: 04/20/19 09:31 Dose: 2.5 mg Ondansetron HCl (Zofran) 4 mg IV Q4H PRN PRN Reason: Nausea/Vomiting Pantoprazole Sodium (Protonix) 40 mg PO DAILY@0730 [facility] Last Admin: 04/20/19 08:23 Dose: 40 mg Polyethylene Glycol (Miralax) 17 gm PO DAILY PRN PRN Reason: Constipation Sodium Chloride (Saline Flush) 10 ml FLUSH ASDIRECTED PRN PRN Reason: Keep Vein Open Tamsulosin HCl (Flomax) 0.4 mg PO DAILY [facility] Last Admin: 04/20/19 09:30 Dose: 0.4 mg Discontinued Medications Hydromorphone HCl (Dilaudid) 1 mg IVPUSH ONETIME ONE Stop: 04/17/19 08:42 Last Admin: 04/17/19 08:47 Dose: 1 mg Hydromorphone HCl (Dilaudid) 0.5 mg IVPUSH Q2H PRN PRN Reason: Pain Last Admin: 04/19/19 11:27 Dose: 0.5 mg Levofloxacin/Dextrose 500 mg/ (Premix) 100 mls @ 100 mls/hr IV ONETIME ONE Stop: 04/17/19 09:23 Last Admin: 04/17/19 08:34 Dose: 100 mls/hr Sodium Chloride (Normal Saline) 1,000 mls @ 125 mls/hr IV ASDIRECTED [facility] Last Admin: 04/19/19 04:02 Dose: 125 mls/hr Ibuprofen (Motrin) 400 mg PO ONETIME ONE Stop: 04/17/19 18:12 Last Admin: 04/17/19 18:31 Dose: 400 mg Ketorolac Tromethamine (Toradol) 30 mg IVPUSH ONETIME ONE Stop: 04/17/19 07:06 Last Admin: 04/17/19 07:11 Dose: 30 mg Lisinopril (Prinivil) 5 mg PO DAILY [facility]G Lisinopril (Prinivil) 2.5 mg PO DAILY [facility] Last Admin: 04/17/19 10:56 Dose: 2.5 mg Potassium Chloride (Klor-Con M20) 40 meq PO ONETIME ONE Stop: 04/20/19 09:01 Last Admin: 04/20/19 09:34 Dose: 40 meq Tamsulosin HCl (Flomax) 0.4 mg PO ONETIME ONE Stop: 04/17/19 07:35 Last Admin: 04/17/19 07:38 Dose: 0.4 mg - Exam General: Reports: Alert, Oriented, Cooperative, No Acute Distress Lungs: Reports: Clear to Auscultation, Normal Respiratory Effort Cardiovascular: Reports: Regular Rate, Regular Rhythm, No Murmurs GI/Abdominal Exam: Soft, Non-Tender, No Organomegaly, No Distention Back Exam: Denies: CVA Tenderness (L) *Q Meaningful Use (DIS) - VTE *Q VTE Pharmacological Contraindications *Q: Not Candidate LT Anticoag
[2019-04-20 11:37] VITALS: BP 156/106; PULSE 62
== END 2019-04-20 12:00 | disposition home or self-care (01) | DRG 690 ==
LOC: JP.ED 06:36 → JP.ICU 09:20 → JP.MS 04-19 08:13
PROVIDERS: ADMIT Hospitalist; ATTEND Hospitalist
DX: N13.6 Pyonephrosis (principal); Z68.41 Body mass index [BMI] 40.0-44.9, adult; N17.9 Acute kidney failure, unspecified; B96.1 Klebsiella pneumoniae [K. pneumoniae] as the cause of diseases classified elsewhere; H91.90 Unspecified hearing loss, unspecified ear; I10 Essential (primary) hypertension; H54.7 Unspecified visual loss; G47.30 Sleep apnea, unspecified; K21.9 Gastro-esophageal reflux disease without esophagitis; G89.29 Other chronic pain; M54.9 Dorsalgia, unspecified; M10.9 Gout, unspecified; M19.90 Unspecified osteoarthritis, unspecified site; F32.9 Major depressive disorder, single episode, unspecified; E66.9 Obesity, unspecified; Z98.84 Bariatric surgery status; E55.9 Vitamin D deficiency, unspecified; F17.200 Nicotine dependence, unspecified, uncomplicated; D50.9 Iron deficiency anemia, unspecified; E53.8 Deficiency of other specified B group vitamins; Z91.048 Other nonmedicinal substance allergy status; F17.210 Nicotine dependence, cigarettes, uncomplicated; Z79.899 Other long term (current) drug therapy; Z88.1 Allergy status to other antibiotic agents; Z88.8 Allergy status to other drugs, medicaments and biological substances; Z90.49 Acquired absence of other specified parts of digestive tract
CPT/HCPCS: 36415; 74176; 80048; 81001; 85025; 87070; 87086; 87088; 87186; 96365; 96375; 99285-25; A9270-GY; J0696; J1170; J1885; J1956; J7030; J7050

== ENCOUNTER 2019-06-20 11:01 | Emergency (ER) | payer MEDICARE, MEDICAID ==
[2019-06-20] MEDS ORDERED: Sodium Chloride 0.9% 10 ML Syringe FLUSH PRN (11:25)
[2019-06-20] MEDS ORDERED: Ketorolac 30 MG/ML SDV IVPUSH ONE (11:26)
--- NOTE | 2019-06-20 11:28 | EDM.PDOC ---
ED HPI GENERAL MEDICAL PROBLEM - General Chief Complaint: Flank Pain Stated Complaint: KIDNEY STONE Time Seen by Provider: 06/20/19 11:22 Source of Information: Reports: Patient, RN Notes Reviewed History Limitations: Reports: No Limitations - History of Present Illness INITIAL COMMENTS - FREE TEXT/NARRATIVE: 59-year-old gentleman presents emergency department a complaint of right flank pain, he has a known history of nephrolithiasis recently had a stone back in March of this year this particular event sudden onset pain initiated in the back radiates around to the front. Initially had nausea that now has improved no fevers no shortness of breath or chest pain. Right Flank Pain Score (Numeric/FACES): 7 - Related Data Allergies Allergy/AdvReac Type Severity Reaction Status Date / Time amoxicillin [From Augmentin] Allergy Hives Verified 06/20/19 11:21 clavulanic acid Allergy Hives Verified 06/20/19 11:21 [From Augmentin] zinc oxide Allergy Rash Verified 06/20/19 11:21 foam tape Allergy Rash Uncoded 06/20/19 11:21 Home Meds: Home Meds Calcium Cit/Mgox/Vit D3/B6/Min [Calcium Citrate Plus Tablet] 1 each PO BID 12/22 [History] Cyanocobalamin (Vitamin B-12) [B-12] 2,500 mcg SL DAILY 12/22/13 [History] Ped Multivit #17/Iron Fumarate [Pv Kids Vitamins+Iron Tab Chew] 1 tab PO BID [History] Cholecalciferol (Vitamin D3) [Vitamin D3] 2,500 units PO DAILY 05/09/15 [History ] Ascorbic Acid [Vitamin C] 1,000 mg PO BID 03/19/16 [History] Citalopram Hydrobromide [Celexa] 40 mg PO DAILY 03/19/16 [History] Ergocalciferol (Vitamin D2) [Vitamin D] 2,500 unit PO DAILY 03/19/16 [History] Hydrocodone/Acetaminophen [[place] 10-325] 1 - 2 tab PO Q12H PRN 09/04/16 [History ] Vitamin B Complex 1 tab PO DAILY 09/04/16 [History] Lisinopril 2.5 mg PO DAILY 07/28/18 [History] Pantoprazole [ProTONIX] 40 mg PO DAILY PRN 04/06/19 [History] Hydrocodone/Acetaminophen [Hydrocodon-Acetaminophn 10-325] 1 each PO TID PRN # 10 tablet 06/20/19 [Rx] Tamsulosin HCl [Flomax] 0.4 mg PO DAILY #30 cap.er.24h 06/20/19 [Rx] Past Medical History HEENT History: Reports: Hard of Hearing, Impaired Vision Other HEENT History: wears glasses and hearing aides broken jaw Cardiovascular History: Reports: Heart Murmur, Hypertension, SOB on Exertion Other Cardiovascular History: hypertension resolved with RNY surgery 4 years ago Respiratory History: Reports: Intubation, Previous, Sleep Apnea Other Respiratory History: no trouble with sleep apnea after RNY surgery. Gastrointestinal History: Reports: Bowel Obstruction, Cholelithiasis, GERD Genitourinary History: Reports: Other (See Below) Other Genitourinary History: after appendectomy kidney infection Musculoskeletal History: Reports: Back Pain, Chronic, Gout, Osteoarthritis, Other (See Below) Other Musculoskeletal History: left shoulder pain. s/p lt rotator cuff repair Neurological History: Reports: Concussion Psychiatric History: Reports: Depression Endocrine/Metabolic History: Reports: Obesity/BMI 30+, Vitamin D Deficiency Other Endocrine/Metabolic History: blood sugar high at times before gastric bypass Hematologic History: Reports: Anemia, B12 Deficiency, Folic Acid, Iron Deficiency Immunologic History: Reports: None Oncologic (Cancer) History: Reports: None Dermatologic History: Reports: Psoriasis Other Dermatologic History: psoriasis resolved after weight loss - Infectious Disease History Infectious Disease History: Reports: Chicken Pox - Past Surgical History Head Surgeries/Procedures: Reports: None HEENT Surgical History: Reports: Oral Surgery Cardiovascular Surgical History: Reports: None Respiratory Surgical History: Reports: None GI Surgical History: Reports: Appendectomy, Bariatric Procedure, Cholecystectomy , Colonoscopy, Hernia, Abdominal, Small Bowel Male Surgical History: Reports: None Endocrine Surgical History: Reports: None Neurological Surgical History: Reports: None Musculoskeletal Surgical History: Reports: Other (See Below) Other Musculoskeletal Surgeries/Procedures:: trigger finger repair. repair rotator cuff Dermatological Surgical History: Reports: None Social & Family History - Family History Family Medical History: Noncontributory - Tobacco Use Smoking Status *Q: Current Every Day Smoker Years of Tobacco use: 7 Packs/Tins Daily: 0.3 - Caffeine Use Caffeine Use: Reports: Soda Other Caffeine Use: rarely - Recreational Drug Use Recreational Drug Use: No - Living Situation & Occupation Living situation: Reports: Single ED ROS GENERAL - Review of Systems Review Of Systems: See Below Constitutional: Denies: Fever, Chills HEENT: Reports: No Symptoms Respiratory: Reports: No Symptoms Cardiovascular: Reports: No Symptoms GI/Abdominal: Reports: Abdominal Pain, Nausea : Reports: Flank Pain ED EXAM, RENAL/ - Physical Exam Exam: See Below Exam Limited By: No Limitations General Appearance: Alert, Mild Distress Respiratory/Chest: No Respiratory Distress, Lungs Clear, Normal Breath Sounds, No Accessory Muscle Use, Chest Non-Tender Cardiovascular: Regular Rate, Rhythm, No Murmur GI/Abdominal: Soft, Tender Back Exam: Normal Inspection, Full Range of Motion, CVA Tenderness (R). No: CVA Tenderness (L) Course - Vital Signs Last Recorded V/S: Last Vital Signs Temp 97.3 F 06/20/19 11:18 Pulse 58 L 06/20/19 11:57 Resp 20 06/20/19 11:57 BP 148/89 H 06/20/19 11:57 Pulse Ox 98 06/20/19 11:57 - Orders/Labs/Meds Orders: Active Orders 24 hr Category Date Time Status Peripheral IV Care [RC] . DIRECTED Care 06/20/19 11:25 Active Lactated Ringers [Ringers, Lactated] 1,000 ml Med 06/20/19 11:30 Active IV ASDIRECTED Sodium Chloride 0.9% [Saline Flush] Med 06/20/19 11:25 Active 10 ml FLUSH ASDIRECTED PRN Peripheral IV Insertion Adult [OM.PC] Urgent Oth 06/20/19 11:25 Ordered Medication Orders Lactated Ringer's (Ringers, Lactated) 1,000 mls @ 999 mls/hr IV ASDIRECTED ANG Last Admin: 06/20/19 11:27 Dose: 999 mls/hr Sodium Chloride (Saline Flush) 10 ml FLUSH ASDIRECTED PRN PRN Reason: Keep Vein Open Last Admin: 06/20/19 11:32 Dose: 10 ml Labs: Laboratory Tests 06/20/19 06/20/19 06/20/19 Range/Units 11:37 11:37 11:37 WBC 5.0 (4.5-11.0) K/uL RBC 5.01 (4.30-5.90) M/uL Hgb 15.2 H D (12.0-15.0) g/dL Hct 47.5 (40.0-54.0) % MCV 95 (80-98) fL MCH 30 (27-31) pg MCHC 32 (32-36) % Plt Count 177 (150-400) K/uL Neut % (Auto) 58 (36-66) % Lymph % (Auto) 28 (24-44) % Coffee % (Auto) 10 H (2-6) % Eos % (Auto) 3 (2-4) % Baso % (Auto) 1 (0-1) % Sodium 143 (140-148) mmol/L Potassium 3.7 (3.6-5.2) mmol/L Chloride 108 (100-108) mmol/L Carbon Dioxide 24 (21-32) mmol/L Anion Gap 11.5 (5.0-14.0) mmol/L BUN 18 (7-18) mg/dL Creatinine 1.0 (0.8-1.3) mg/dL Est Cr Clr Drug Dosing 97.41 mL/min Estimated GFR (MDRD) > 60 (>60) Glucose 104 (74-106) mg/dL Lactic Acid 2.4 H (0.4-2.0) mmol/L Calcium 8.7 (8.5-10.1) mg/dL Total Bilirubin 0.7 (0.2-1.0) mg/dL AST 18 (15-37) U/L ALT 25 (12-78) U/L Alkaline Phosphatase 92 (46-116) U/L Total Protein 6.7 (6.4-8.2) g/dL Albumin 3.6 (3.4-5.0) g/dL Globulin 3.1 (2.3-3.5) g/dL Albumin/Globulin Ratio 1.2 (1.2-2.2) Meds: Medications Generic Name Dose Route Start Last Admin Trade Name Freq PRN Reason Stop Dose Admin Lactated Ringer's 1,000 mls @ 999 mls/hr 06/20/19 11:30 06/20/19 11:27 Ringers, Lactated IV 999 mls/hr ASDIRECTED ANG Administration Sodium Chloride 10 ml 06/20/19 11:25 06/20/19 11:32 Saline Flush FLUSH 10 ml ASDIRECTED PRN Administration Keep Vein Open Discontinued Medications Generic Name Dose Route Start Last Admin Trade Name Freq PRN Reason Stop Dose Admin Hydromorphone HCl 1 mg 06/20/19 12:09 06/20/19 12:12 Dilaudid IVPUSH 06/20/19 12:10 1 mg ONETIME ONE Administration Ketorolac Tromethamine 30 mg 06/20/19 11:26 06/20/19 11:31 Toradol IVPUSH 06/20/19 11:27 30 mg ONETIME ONE Administration Departure - Departure Time of Disposition: 12:35 Disposition: Home, Self-Care 01 Condition: Fair Clinical Impression: Nephrolithiasis - Discharge Information Prescriptions: Hydrocodone/Acetaminophen [Hydrocodon-Acetaminophn 10-325] 1 each PO TID PRN # 10 tablet PRN Reason: Pain Tamsulosin HCl [Flomax] 0.4 mg PO DAILY #30 cap.er.24h Instructions: Kidney Stones, [id number] Referrals: PCP,Unknown [Primary Care Provider] - Forms: ED Department Discharge Additional Instructions: Take the Flomax daily until stone passes, use hydrocodone as needed for pain control, please contact your primary care provider for an update as you may need a referral to urology in the future Sepsis Event Note - Evaluation Sepsis Screening Result: No Definite Risk - Focused Exam Vital Signs: Vital Signs Temp Pulse Resp BP Pulse Ox 06/20/19 11:57 58 L 20 148/89 H 98 06/20/19 11:18 97.3 F 65 18 137/93 H 98 06/20/19 11:15 97.3 F 65 18 137/93 H 98 Date Exam was Performed: 06/20/19 Time Exam was Performed: 12:34 - My Orders Last 24 Hours: My Active Orders 06/20/19 11:25 Peripheral IV Care [RC] . DIRECTED Sodium Chloride 0.9% [Saline Flush] 10 ml FLUSH ASDIRECTED PRN Peripheral IV Insertion Adult [OM.PC] Urgent 06/20/19 11:30 Lactated Ringers [Ringers, Lactated] 1,000 ml IV ASDIRECTED - Assessment/Plan Last 24 Hours: My Active Orders 06/20/19 11:25 Peripheral IV Care [RC] . DIRECTED Sodium Chloride 0.9% [Saline Flush] 10 ml FLUSH ASDIRECTED PRN Peripheral IV Insertion Adult [OM.PC] Urgent 06/20/19 11:30 Lactated Ringers [Ringers, Lactated] 1,000 ml IV ASDIRECTED Plan: Assessment Acuity = acute Site and laterality = nephrolithiasis right mid ureter Etiology = unknown Manifestations = flank pain right side Location of injury = Home Lab values = CBC CMP, lactic acid unremarkable CT scan describes stone above Plan Prescription written for Flomax 0.4 mg 1 tablet p.o. daily total #30 also additional hydrocodone 10/325 1 tab p.o. 3 times daily PRN total #10 have asked him to contact his primary care provider for further follow-up with possible referral to urology This note was dictated using [employer] voice recognition software please call with any questions on syntax or grammar.
[2019-06-20] MEDS ORDERED: Lactated Ringers 1,000 ML IV SCH (11:30)
--- NOTE | 2019-06-20 11:59 | CT ---
Abdomen Pelvis wo Cont CLINICAL HISTORY: Right flank pain COMPARISON: March 2019. TECHNIQUE: Axial tomographic images are obtained from the dome of the diaphragm to the pubic symphysis without IV contrast enhancement. No oral contrast was used. Auto dosage reduction and iterative reconstruction techniques employed. FINDINGS: The lung bases are clear. The liver is enlarged.. The gallbladder has been removed. The spleen has a normal contour. There is been previous bariatric surgery. The pancreas shows no mass or inflammatory change. The adrenal glands appear normal bilaterally. The right kidney is hydronephrotic. No renal stone is identified. The extrarenal pelvis and proximal ureter are mildly dilated. There is a 5 x 6 mm stone in the mid ureter at the L3-4 level. The right distal ureter has normal course and contour there is a punctate calcification in the midpole of the left kidney which may be in the calyx or the renal pyramid. Left ureter has normal course and caliber. The bladder is generally thick-walled due to prostatic hypertrophy and chronic outlet obstruction. There is left colon diverticulosis. There are small bilateral inguinal hernia similar to prior study IMPRESSION: Migration of previously seen right midpole renal calculus into the mid right ureter. This is causing a low to moderate grade of obstruction. Stable punctate midpole calculus in the left kidney. Hepatomegaly. Diverticulosis without evidence of diverticulitis Previous bariatric surgery Bladder wall hypertrophy and prostatic enlargement
[2019-06-20] MEDS ORDERED: HYDROmorphone 1 MG/ML Syringe IVPUSH ONE (12:09)
[2019-06-20 12:51] VITALS: BP 161/95; PULSE 61
== END 2019-06-20 12:51 | disposition home or self-care (01) ==
LOC: JP.ED 11:01
DX: N13.2 Hydronephrosis with renal and ureteral calculous obstruction (principal); I10 Essential (primary) hypertension; E66.9 Obesity, unspecified; F32.9 Major depressive disorder, single episode, unspecified; F17.210 Nicotine dependence, cigarettes, uncomplicated; Z88.1 Allergy status to other antibiotic agents; Z79.899 Other long term (current) drug therapy; Z68.41 Body mass index [BMI] 40.0-44.9, adult
CPT/HCPCS: 36415; 74176; 80053; 83605; 85025; 96361; 96374; 96375; 99284; J1170; J1885; J7120

== ENCOUNTER 2019-06-20 18:45 | Emergency (ER) | payer MEDICARE, MEDICAID ==
[2019-06-20] MEDS ORDERED: fentaNYL 100 MCG/2 ML SDV IVPUSH ONE (20:01)
[2019-06-20] MEDS ORDERED: cefTRIAXone 2 GM in Sodium Chloride 0.9% 50 ML IV ONE (20:39)
--- NOTE | 2019-06-20 21:05 | EDM.PDOC ---
ED HPI GENERAL MEDICAL PROBLEM - General Chief Complaint: Genitourinary Problem Stated Complaint: BACK PAIN, FEVER Time Seen by Provider: 06/20/19 20:05 Source of Information: Reports: Patient History Limitations: Reports: No Limitations - History of Present Illness INITIAL COMMENTS - FREE TEXT/NARRATIVE: This is a 59-year-old male who presents with right-sided flank pain. He was seen in the emergency department earlier today and diagnosed with a 6 mm right- sided ureteral stone. He was sent home pain medications. He returns now to the ER because he got home and his pain was not well controlled with his medication. He also reports that he had an episode of shaking chills. The pain is currently moderate in severity. Is in the right flank. It is colicky. He has a history of prior renal stones. Reports that he was hospitalized here in the past, and had what sounds to be sepsis due to pyelonephritis. Right Flank Pain Score (Numeric/FACES): 10 - Related Data Allergies Allergy/AdvReac Type Severity Reaction Status Date / Time amoxicillin [From Augmentin] Allergy Hives Verified 06/20/19 19:59 clavulanic acid Allergy Hives Verified 06/20/19 19:59 [From Augmentin] zinc oxide Allergy Rash Verified 06/20/19 19:59 foam tape Allergy Rash Uncoded 06/20/19 19:59 Home Meds: Home Meds Calcium Cit/Mgox/Vit D3/B6/Min [Calcium Citrate Plus Tablet] 1 each PO BID 12/22 [History] Cyanocobalamin (Vitamin B-12) [B-12] 2,500 mcg SL DAILY 12/22/13 [History] Ped Multivit #17/Iron Fumarate [Pv Kids Vitamins+Iron Tab Chew] 1 tab PO BID [History] Cholecalciferol (Vitamin D3) [Vitamin D3] 2,500 units PO DAILY 05/09/15 [History ] Ascorbic Acid [Vitamin C] 1,000 mg PO BID 03/19/16 [History] Citalopram Hydrobromide [Celexa] 40 mg PO DAILY 03/19/16 [History] Ergocalciferol (Vitamin D2) [Vitamin D] 2,500 unit PO DAILY 03/19/16 [History] Hydrocodone/Acetaminophen [[place] 10-325] 1 - 2 tab PO Q12H PRN 09/04/16 [History ] Vitamin B Complex 1 tab PO DAILY 09/04/16 [History] Lisinopril 2.5 mg PO DAILY 07/28/18 [History] Pantoprazole [ProTONIX] 40 mg PO DAILY PRN 04/06/19 [History] Tamsulosin HCl [Flomax] 0.4 mg PO DAILY #30 cap.er.24h 06/20/19 [Rx] Past Medical History HEENT History: Reports: Hard of Hearing, Impaired Vision Other HEENT History: wears glasses and hearing aides broken jaw Cardiovascular History: Reports: Heart Murmur, Hypertension, SOB on Exertion Other Cardiovascular History: hypertension resolved with RNY surgery 4 years ago Respiratory History: Reports: Intubation, Previous, Sleep Apnea Other Respiratory History: no trouble with sleep apnea after RNY surgery. Gastrointestinal History: Reports: Bowel Obstruction, Cholelithiasis, GERD Genitourinary History: Reports: Other (See Below) Other Genitourinary History: after appendectomy kidney infection Musculoskeletal History: Reports: Back Pain, Chronic, Gout, Osteoarthritis, Other (See Below) Other Musculoskeletal History: left shoulder pain. s/p lt rotator cuff repair Neurological History: Reports: Concussion Psychiatric History: Reports: Depression Endocrine/Metabolic History: Reports: Obesity/BMI 30+, Vitamin D Deficiency Other Endocrine/Metabolic History: blood sugar high at times before gastric bypass Hematologic History: Reports: Anemia, B12 Deficiency, Folic Acid, Iron Deficiency Immunologic History: Reports: None Oncologic (Cancer) History: Reports: None Dermatologic History: Reports: Psoriasis Other Dermatologic History: psoriasis resolved after weight loss - Infectious Disease History Infectious Disease History: Reports: Chicken Pox - Past Surgical History Head Surgeries/Procedures: Reports: None HEENT Surgical History: Reports: Oral Surgery Cardiovascular Surgical History: Reports: None Respiratory Surgical History: Reports: None GI Surgical History: Reports: Appendectomy, Bariatric Procedure, Cholecystectomy , Colonoscopy, Hernia, Abdominal, Small Bowel Male Surgical History: Reports: None Endocrine Surgical History: Reports: None Neurological Surgical History: Reports: None Musculoskeletal Surgical History: Reports: Other (See Below) Other Musculoskeletal Surgeries/Procedures:: trigger finger repair. repair rotator cuff Dermatological Surgical History: Reports: None Social & Family History - Family History Family Medical History: Noncontributory - Tobacco Use Smoking Status *Q: Unknown Ever Smoked Second Hand Smoke Exposure: No - Caffeine Use Caffeine Use: Reports: None Other Caffeine Use: rarely - Recreational Drug Use Recreational Drug Use: No - Living Situation & Occupation Living situation: Reports: Single ED ROS GENERAL - Review of Systems Review Of Systems: See Below Constitutional: Reports: Chills HEENT: Reports: No Symptoms Respiratory: Reports: No Symptoms Cardiovascular: Reports: No Symptoms Endocrine: Reports: No Symptoms GI/Abdominal: Reports: No Symptoms : Reports: Flank Pain Musculoskeletal: Reports: No Symptoms Skin: Reports: No Symptoms Neurological: Reports: No Symptoms Psychiatric: Reports: No Symptoms Hematologic/Lymphatic: Reports: No Symptoms Immunologic: Reports: No Symptoms ED EXAM, RENAL/ - Physical Exam Exam: See Below Exam Limited By: No Limitations General Appearance: Alert, No Apparent Distress Ears: Normal External Exam Nose: Normal Inspection Throat/Mouth: Normal Inspection Head: Atraumatic, Normocephalic Respiratory/Chest: Lungs Clear Cardiovascular: Regular Rate, Rhythm GI/Abdominal: Soft, Non-Tender Back Exam: Normal Inspection Extremities: Normal Inspection Neurological: Alert, Oriented Psychiatric: Normal Affect, Normal Mood Skin Exam: Warm, Dry Course - Vital Signs Last Recorded V/S: Last Vital Signs Temp 36.6 C 06/20/19 20:00 Pulse 88 06/20/19 20:00 Resp 14 06/20/19 20:00 BP 132/77 06/20/19 20:00 Pulse Ox 98 06/20/19 20:00 - Orders/Labs/Meds Orders: Active Orders 24 hr Category Date Time Status cefTRIAXone [Rocephin] 2 gm Med 06/20/19 20:39 Active Sodium Chloride 0.9% [Normal Saline] 50 ml IV ONETIME Medication Orders Ceftriaxone Sodium 2 gm/ (Sodium Chloride) 50 mls @ 100 mls/hr IV ONETIME ONE Stop: 06/20/19 21:08 Last Admin: 06/20/19 20:47 Dose: 100 mls/hr Labs: Laboratory Tests 06/20/19 Range/Units 20:25 Urine Color Brown A (YELLOW) Urine Appearance Cloudy A (CLEAR) Urine pH 5.5 (5.0-8.0) Ur Specific [place] >= 1.030 (1.008-1.030) Urine Protein 30 H (NEGATIVE) mg/dL Urine Glucose (UA) Negative (NEGATIVE) mg/dL Urine Ketones Negative (NEGATIVE) mg/dL Urine Occult Blood Moderate H (NEGATIVE) Urine Nitrite Positive H (NEGATIVE) Urine Bilirubin Small H (NEGATIVE) Urine Urobilinogen 0.2 (0.2-1.0) EU/dL Ur Leukocyte Esterase Small H (NEGATIVE) Urine RBC Packed H (0-5) Urine WBC 5-10 H (0-5) Ur Epithelial Cells Not seen Amorphous Sediment Few Urine Bacteria Many Urine Mucus Not seen Meds: Medications Generic Name Dose Route Start Last Admin Trade Name Freq PRN Reason Stop Dose Admin Ceftriaxone Sodium 2 gm/ 50 mls @ 100 mls/hr 06/20/19 20:39 06/20/19 20:47 Sodium Chloride IV 06/20/19 21:08 100 mls/hr ONETIME ONE Administration Discontinued Medications Generic Name Dose Route Start Last Admin Trade Name Freq PRN Reason Stop Dose Admin Fentanyl 100 mcg 06/20/19 20:01 06/20/19 20:07 Sublimaze IVPUSH 06/20/19 20:02 100 mcg ONETIME ONE Administration - Re-Assessments/Exams Free Text/Narrative Re-Assessment/Exam: This is a 59-year-old man who presents with right flank pain in the setting of a known 6 mm stone diagnosed earlier today. He also concerningly reports an episode of possible rigors earlier today. He has stable vital signs here. We obtained a UA which is concerning for infection. Overall I am concerned that he has an infected right-sided stone. He is at risk for further decompensation, and may need urology intervention, therefore I am going to transfer him to [facility]. He was dosed 2 g of ceftiaxone and 1L of NS. 06/20/19 21:07 Departure - Departure Time of Disposition: 21:09 Disposition: Home, Self-Care 01 Clinical Impression: Kidney stone on right side - Discharge Information Referrals: Kenan Soliz MD [Primary Care Provider] - Forms: ED Department Discharge Sepsis Event Note - Evaluation Sepsis Screening Result: No Definite Risk - Focused Exam Vital Signs: Vital Signs Temp Pulse Resp BP Pulse Ox 06/20/19 20:00 36.6 C 88 14 132/77 98 06/20/19 19:05 36.6 C 93 16 138/87 96 Date Exam was Performed: 06/20/19 Time Exam was Performed: 21:05 - My Orders Last 24 Hours: My Active Orders 06/20/19 20:39 cefTRIAXone [Rocephin] 2 gm Sodium Chloride 0.9% [Normal Saline] 50 ml IV ONETIME - Assessment/Plan Last 24 Hours: My Active Orders 06/20/19 20:39 cefTRIAXone [Rocephin] 2 gm Sodium Chloride 0.9% [Normal Saline] 50 ml IV ONETIME
[2019-06-20 21:06] VITALS: BP 102/62; PULSE 77
[2019-06-20] MEDS ORDERED: Sodium Chloride 0.9% 1,000 ML IV ONE (21:10)
== END 2019-06-20 21:55 | disposition home or self-care (01) ==
LOC: JP.ED 18:45
DX: N20.0 Calculus of kidney (principal); I10 Essential (primary) hypertension; E66.9 Obesity, unspecified; F32.9 Major depressive disorder, single episode, unspecified; Z88.1 Allergy status to other antibiotic agents; Z79.899 Other long term (current) drug therapy
CPT/HCPCS: 81001; 96361; 96365; 96375; 99284; J0696; J3010; J7030; J7050

== ENCOUNTER 2020-01-25 16:07 | Emergency (ER) | payer MEDICARE, MEDICAID ==
[2020-01-25] MEDS ORDERED: Bacitracin Oint 1 GM U/D Packet TOP ONE (18:29)
[2020-01-25 18:34] VITALS: BP 141/82; PULSE 69
--- NOTE | 2020-01-25 18:34 | EDM.PDOC ---
ED HPI GENERAL MEDICAL PROBLEM - General Chief Complaint: Laceration Stated Complaint: CUT LEFT POINTER FINGER Time Seen by Provider: 01/25/20 18:26 Source of Information: Reports: Patient, RN Notes Reviewed History Limitations: Reports: No Limitations - History of Present Illness INITIAL COMMENTS - FREE TEXT/NARRATIVE: 59-year-old gentleman presents emergency department today with a laceration to digit #2 on his left hand he caught this on a dumpster he thinks it might have been a sharp piece of metal sticking out ended up doing a 4 cm laceration on the medial aspect of digit #2 - Related Data Allergies Allergy/AdvReac Type Severity Reaction Status Date / Time amoxicillin [From Augmentin] Allergy Hives Verified 01/25/20 18:28 clavulanic acid Allergy Hives Verified 01/25/20 18:28 [From Augmentin] zinc oxide Allergy Rash Verified 01/25/20 18:28 foam tape Allergy Rash Uncoded 01/17/20 10:20 Home Meds: Home Meds Calcium Cit/Mgox/Vit D3/B6/Min [Calcium Citrate Plus Tablet] 1 each PO BID 12/22/13 [History] Cyanocobalamin (Vitamin B-12) [B-12] 2,500 mcg SL DAILY 12/22/13 [History] Ped Multivit #17/Iron Fumarate [Pv Kids Vitamins+Iron Tab Chew] 1 tab PO BID 12/22/13 [History] Cholecalciferol (Vitamin D3) [Vitamin D3] 2,500 units PO DAILY 05/09/15 [History] Citalopram Hydrobromide [Celexa] 40 mg PO DAILY 03/19/16 [History] Ergocalciferol (Vitamin D2) [Vitamin D] 2,500 unit PO DAILY 03/19/16 [History] Hydrocodone/Acetaminophen [[place] 10-325] 1 - 2 tab PO Q12H PRN 09/04/16 [History] Vitamin B Complex 1 tab PO DAILY 09/04/16 [History] Lisinopril 2.5 mg PO DAILY 07/28/18 [History] Pantoprazole [ProTONIX] 40 mg PO DAILY PRN 04/06/19 [History] Past Medical History HEENT History: Reports: Hard of Hearing, Impaired Vision Other HEENT History: wears glasses and hearing aides broken jaw Cardiovascular History: Reports: Heart Murmur, Hypertension, SOB on Exertion Other Cardiovascular History: hypertension resolved with RNY surgery 4 years ago Respiratory History: Reports: Intubation, Previous, Sleep Apnea Other Respiratory History: no trouble with sleep apnea after RNY surgery. Gastrointestinal History: Reports: Bowel Obstruction, Cholelithiasis, GERD Genitourinary History: Reports: Other (See Below) Other Genitourinary History: after appendectomy kidney infection Musculoskeletal History: Reports: Back Pain, Chronic, Gout, Osteoarthritis, Other (See Below) Other Musculoskeletal History: left shoulder pain right shoulder pain. s/p lt rotator cuff repair 08/01/18 Neurological History: Reports: Concussion Psychiatric History: Reports: Depression Endocrine/Metabolic History: Reports: Obesity/BMI 30+, Vitamin D Deficiency Other Endocrine/Metabolic History: blood sugar high at times before gastric bypass Hematologic History: Reports: Anemia, B12 Deficiency, Folic Acid, Iron Deficiency Immunologic History: Reports: None Oncologic (Cancer) History: Reports: None Dermatologic History: Reports: Psoriasis Other Dermatologic History: psoriasis resolved after weight loss - Infectious Disease History Infectious Disease History: Reports: Chicken Pox - Past Surgical History Head Surgeries/Procedures: Reports: None HEENT Surgical History: Reports: Oral Surgery Cardiovascular Surgical History: Reports: None Respiratory Surgical History: Reports: None GI Surgical History: Reports: Appendectomy, Bariatric Procedure, Cholecystectomy, Colonoscopy, Hernia, Abdominal, Small Bowel Male Surgical History: Reports: None Endocrine Surgical History: Reports: None Neurological Surgical History: Reports: None Musculoskeletal Surgical History: Reports: Other (See Below) Other Musculoskeletal Surgeries/Procedures:: trigger finger repair. repair rotator cuff Dermatological Surgical History: Reports: None Social & Family History - Family History Family Medical History: Noncontributory - Tobacco Use Tobacco Use Status *Q: Current Some Day Tobacco User - Caffeine Use Caffeine Use: Reports: None Other Caffeine Use: rarely - Living Situation & Occupation Living situation: Reports: Single ED ROS GENERAL - Review of Systems Review Of Systems: See Below Constitutional: Reports: No Symptoms Skin: Reports: Wound ED EXAM, SKIN/RASH Exam: See Below Text/Narrative:: Examination of the left hand he does have full range of motion of all digits radial pulses +2 he has a 4 cm laceration medial aspect digit #2 encompassing from the PIP to the DIP joint it is completely through the dermis subcutaneous is exposed ED SKIN PROCEDURES - Laceration/Wound Repair Left Digit - 2nd (Index) Appearance: Subcutaneous, Linear Distal NVT: Neuro & Vascular Intact, No Tendon Injury Anesthetic Type: Digital Local Anesthesia - Lidocaine (Xylocaine): 1% Plain Local Anesthetic Volume: 2cc Skin Prep: Saline Saline Irrigation (cc's): 20 Exploration/Debridement/Repair: Wound Explored, In a Bloodless Field, Explored to Base Closed with: Sutures Lac/Wound length In cm: 4 Suture Size: 4-0 # of Sutures: 7 Suture Type: Interrupted, Running Sterile Dressing Applied: Nurse Tetanus Status Addressed: Yes (2 years ago) Course - Vital Signs Last Recorded V/S: Last Vital Signs Temp 96.8 F L 01/25/20 18:34 Pulse 69 01/25/20 18:34 Resp 16 01/25/20 18:34 BP 141/82 H 01/25/20 18:34 Pulse Ox 96 01/25/20 18:34 - Orders/Labs/Meds Meds: Medications Discontinued Medications Generic Name Dose Route Start Last Admin Trade Name Freq PRN Reason Stop Dose Admin Bacitracin 1 dose 01/25/20 18:29 01/25/20 18:39 Bacitracin Oint 1 Gm TOP 01/25/20 18:30 1 dose ONETIME ONE Administration Lidocaine HCl 5 ml 01/25/20 18:29 01/25/20 18:39 Xylocaine-Mpf 1% INJECT 01/25/20 18:30 5 ml ONETIME ONE Administration Departure - Departure Time of Disposition: 19:06 Disposition: Home, Self-Care 01 Condition: Good Clinical Impression: Laceration of index finger of left hand without complication Qualifiers: Encounter type: initial encounter Qualified Code(s): S61.211A - Laceration without foreign body of left index finger without damage to nail, initial encounter - Discharge Information Instructions: Laceration Care, Adult Referrals: Kenan Soliz MD [Primary Care Provider] - Forms: ED Department Discharge Additional Instructions: Suture removal in 10 days, follow wound care instruction sheet return to the emergency department or follow-up in clinic for suture removal Sepsis Event Note (ED) - Focused Exam Vital Signs: Vital Signs Temp Pulse Resp BP Pulse Ox 01/25/20 18:34 96.8 F L 69 16 141/82 H 96 01/25/20 18:28 96.8 F L 69 16 141/82 H 96 - Assessment/Plan Plan: Assessment Acuity = acute Site and laterality = 4 cm laceration left digit #2 Etiology = secondary trauma Manifestations = none Location of injury = Home Lab values = none Plan Suture removal in 10 days, follow-up with primary care or return to the emergency department for suture removal follow wound care instruction sheet This note was dictated using [employer] voice recognition software please call with any questions on syntax or grammar.
== END 2020-01-25 19:34 | disposition home or self-care (01) ==
LOC: JP.ED 16:07
DX: S61.211A Laceration without foreign body of left index finger without damage to nail, initial encounter (principal); I10 Essential (primary) hypertension; F32.9 Major depressive disorder, single episode, unspecified; E66.9 Obesity, unspecified; Z68.41 Body mass index [BMI] 40.0-44.9, adult; Z88.1 Allergy status to other antibiotic agents; Z91.048 Other nonmedicinal substance allergy status; Z79.899 Other long term (current) drug therapy
CPT/HCPCS: 12002; 99282-25; J2001

== ENCOUNTER 2020-08-24 10:09 | Emergency (ER) | payer MEDICARE, MEDICAID ==
[2020-08-24 10:38] VITALS: BP 144/104; PULSE 83
--- NOTE | 2020-08-24 10:55 | EDM.PDOC ---
ED HPI GENERAL MEDICAL PROBLEM - General Chief Complaint: Upper Extremity Injury/Pain Stated Complaint: LEFT SHOULDER PAIN Time Seen by Provider: 08/24/20 10:43 Source of Information: Reports: Patient History Limitations: Reports: No Limitations - History of Present Illness INITIAL COMMENTS - FREE TEXT/NARRATIVE: 60-year-old male who already has chronic shoulder problems, was in the clinic last week for a shoulder injection and is awaiting surgery on his left shoulder for rotator cuff injuries was helping his brother yesterday and was tightening a bolt with a wrench when he felt a pop in his right bicep. Within a few hours he had swelling in the upper aspect of the arm and pain. He iced it down, this morning the swelling is much better but there is significant bruising and discomfort. He has pain with abduction of the arm but if the arm is held near his body he has good flexion at the elbow and near normal strength. Onset: Sudden Duration: Hour(s): (About 16 hours ago) Quality: Reports: Burning, Sharp Associated Symptoms: Reports: No Other Symptoms Left Arm Pain Score (Numeric/FACES): 10 - Related Data Allergies Allergy/AdvReac Type Severity Reaction Status Date / Time amoxicillin [From Augmentin] Allergy Hives Verified 08/24/20 10:36 bacitracin Allergy Rash Verified 08/24/20 10:36 clavulanic acid Allergy Hives Verified 08/24/20 10:36 [From Augmentin] Penicillins Allergy Other Verified 08/24/20 10:36 zinc oxide Allergy Rash Verified 08/24/20 10:36 foam tape Allergy Rash Uncoded 03/20/20 10:04 Home Meds: Home Meds Calcium Cit/Mgox/Vit D3/B6/Min [Calcium Citrate Plus Tablet] 1 each PO BID 12/22/13 [History] Cyanocobalamin (Vitamin B-12) [B-12] 2,500 mcg SL DAILY 12/22/13 [History] Ped Multivit #17/Iron Fumarate [Pv Kids Vitamins+Iron Tab Chew] 1 tab PO BID 12/22/13 [History] Cholecalciferol (Vitamin D3) [Vitamin D3] 2,500 units PO DAILY 05/09/15 [History] Citalopram Hydrobromide [Celexa] 40 mg PO DAILY 03/19/16 [History] Hydrocodone/Acetaminophen [[place] 10-325] 1 - 2 tab PO Q12H PRN 09/04/16 [History] Vitamin B Complex 1 tab PO DAILY 09/04/16 [History] Omeprazole 20 mg PO BID 05/15/20 [History] Past Medical History - Past Health History Medical/Surgical History: Denies Medical/Surgical History HEENT History: Reports: Hard of Hearing, Impaired Vision Other HEENT History: wears glasses and hearing aides broken jaw Cardiovascular History: Reports: Heart Murmur, Hypertension, SOB on Exertion Other Cardiovascular History: hypertension resolved with RNY surgery 4 years ago Respiratory History: Reports: Intubation, Previous, Sleep Apnea Other Respiratory History: no trouble with sleep apnea after RNY surgery. Gastrointestinal History: Reports: Bowel Obstruction, Cholelithiasis, GERD Genitourinary History: Reports: Other (See Below) Other Genitourinary History: after appendectomy kidney infection Musculoskeletal History: Reports: Back Pain, Chronic, Gout, Osteoarthritis, Other (See Below) Other Musculoskeletal History: left shoulder pain right shoulder pain Neurological History: Reports: Concussion Psychiatric History: Reports: Depression Endocrine/Metabolic History: Reports: Obesity/BMI 30+, Vitamin D Deficiency Other Endocrine/Metabolic History: blood sugar high at times before gastric bypass Hematologic History: Reports: Anemia, B12 Deficiency, Folic Acid, Iron Deficiency Immunologic History: Reports: None Oncologic (Cancer) History: Reports: None Dermatologic History: Reports: Psoriasis Other Dermatologic History: psoriasis resolved after weight loss - Infectious Disease History Infectious Disease History: Reports: Chicken Pox - Past Surgical History HEENT Surgical History: Reports: Oral Surgery Other HEENT Surgeries/Procedures: wisdom teeth extraction GI Surgical History: Reports: Appendectomy, Bariatric Procedure, Cholecystectomy, Colonoscopy, Hernia, Abdominal, Small Bowel Musculoskeletal Surgical History: Reports: Shoulder Surgery, Other (See Below) Other Musculoskeletal Surgeries/Procedures:: trigger finger repair. s/p lt rotator cuff repair 08/01/18 Social & Family History - Family History Family Medical History: No Pertinent Family History - Tobacco Use Tobacco Use Status *Q: Light Tobacco User Years of Tobacco use: 30 Packs/Tins Daily: 0.5 - Caffeine Use Caffeine Use: Reports: None Other Caffeine Use: rarely - Recreational Drug Use Recreational Drug Use: No - Living Situation & Occupation Living situation: Reports: Single Review of Systems - Review of Systems Review Of Systems: See Below Constitutional: Denies: Fever Respiratory: Reports: No Symptoms Cardiovascular: Reports: No Symptoms Musculoskeletal: Reports: Arm Pain Skin: Reports: Bruising Neurological: Denies: Paresthesia Psychiatric: Reports: No Symptoms ED EXAM, GENERAL - Physical Exam Exam: See Below Exam Limited By: No Limitations General Appearance: Alert, No Apparent Distress Head: Atraumatic Respiratory/Chest: No Respiratory Distress Cardiovascular: Regular Rate, Rhythm Extremities: Other (Exam is otherwise limited to the upper extremities. The left bicep has bruising and tenderness to palpation, but no defect over the distal bicep tendons, no "Meng sign", and he has fairly good range of motion of the elbow including flexion.) Neurological: Alert, Oriented Psychiatric: Normal Affect, Normal Mood Skin Exam: Warm, Dry, Ecchymosis (left bicep area) Course - Vital Signs Last Recorded V/S: Last Vital Signs Temp 98 F 08/24/20 10:40 Pulse 83 08/24/20 10:40 Resp 18 08/24/20 10:40 BP 144/104 H 08/24/20 10:40 Pulse Ox 97 08/24/20 10:40 - Orders/Labs/Meds Orders: Active Orders 24 hr Category Date Time Status Consult to Orthopedic Clinic [CONS] Routine Cons 08/24/20 10:55 Active DME for Discharge [COMM] Stat Oth 08/24/20 10:55 Ordered - Re-Assessments/Exams Free Text/Narrative Re-Assessment/Exam: 08/24/20 10:53 I do not believe this is a full biceps tendon rupture and is more likely an injury of the muscle itself. A 4 inch Simón wrap was applied to the upper arm for support, he will be given a sling for comfort but I encouraged him to move the arm several times daily. We will try to fit him in to see Dr. Anderson next week for reevaluation, an MRI may be needed to further evaluate the injury. He is going to continue with his hydrocodone, and take some ibuprofen for the next couple of days for extra pain control. Departure - Departure Time of Disposition: 11:30 Disposition: Home, Self-Care 01 Clinical Impression: Biceps muscle tear Qualifiers: Encounter type: initial encounter Laterality: left Qualified Code(s): S46.212A - Strain of muscle, fascia and tendon of other parts of biceps, left arm, initial encounter - Discharge Information Instructions: Muscle Strain, [id number] Referrals: Kenan Soliz MD [Primary Care Provider] - Forms: ED Department Discharge Care Plan Goals: Wrap for comfort, continue with your hydrocodone and add ibuprofen for the next couple of days for extra pain control. Use the sling to reduce pain but remove the arm several times daily for gentle range of motion. Call Dr. Anderson's clinic on Wednesday for an appointment time hopefully Wednesday but possibly for a recheck. Sepsis Event Note (ED) - Evaluation Sepsis Screening Result: No Definite Risk - Focused Exam Vital Signs: Vital Signs Temp Pulse Resp BP Pulse Ox 08/24/20 10:40 98 F 83 18 144/104 H 97 08/24/20 10:36 98 F 83 18 144/104 H 97 - My Orders Last 24 Hours: My Active Orders 08/24/20 10:55 Consult to Orthopedic Clinic [CONS] Routine DME for Discharge [COMM] Stat - Assessment/Plan Last 24 Hours: My Active Orders 08/24/20 10:55 Consult to Orthopedic Clinic [CONS] Routine DME for Discharge [COMM] Stat
== END 2020-08-24 11:30 | disposition home or self-care (01) ==
LOC: JP.ED 10:09
DX: S46.212A Strain of muscle, fascia and tendon of other parts of biceps, left arm, initial encounter (principal); I10 Essential (primary) hypertension; K21.9 Gastro-esophageal reflux disease without esophagitis; E66.9 Obesity, unspecified; Z68.30 Body mass index [BMI] 30.0-30.9, adult; Z88.0 Allergy status to penicillin; Z91.048 Other nonmedicinal substance allergy status; Z72.0 Tobacco use; X50.9XXA Other and unspecified overexertion or strenuous movements or postures, initial encounter
CPT/HCPCS: 99283

== ENCOUNTER 2025-01-19 13:30 | Emergency (ER) | payer MEDICARE, MEDICAID ==
[2025-01-19 13:57] VITALS: BP 137/67; PULSE 92
[2025-01-19 14:07] LABS: BASOPHILS ABSOLUTE AUTO 0.04 K/uL (0.00-0.10); BASOPHILS PERCENT AUTO 0.7 % (0.1-1.3); EOSINOPHILS ABSOLUTE AUTO 0.11 K/uL (0.00-0.40); EOSINOPHILS PERCENT AUTO 2.0 % (0.0-5.4); IMMATURE GRAN PERCENT AUTO 0.4 % (0.0-0.7); LYMPHOCYTES ABSOLUTE AUTO 1.20 K/uL (0.8-3.3); LYMPHOCYTES PERCENT AUTO 21.3 % (11.4-47.7); MONOCYTES ABSOLUTE AUTO 0.46 K/uL (0.20-0.90); MONOCYTES PERCENT AUTO 8.2 % (3.3-12.6); NEUTROPHILS ABSOLUTE AUTO 3.80 K/uL (1.0-7.6); NEUTROPHILS PERCENT AUTO 67.4 % (40.0-78.1); PLATELET COUNT,PLT 185 K/uL (130-375); RED BLOOD CELL COUNT 4.99 M/uL (4.14-5.76); WHITE BLOOD CELL COUNT,WBC 5.6 K/uL (3.2-11.0)
[2025-01-19 14:09] LABS: IMMATURE GRAN ABSOLUTE AUTO 0.02 K/uL (0.00-0.23)
[2025-01-19 14:31] LABS: A/G RATIO 1.1 (1.2-2.2); ALANINE AMINOTRANSFERASE,ALT 30 U/L (12-78); ASPARTATE AMNIOTRANSFERASE,AST 24 U/L (15-37); BILIRUBIN TOTAL 0.7 mg/dL (0.2-1.0); BLOOD UREA NITROGEN,BUN 13 mg/dL (7-18); CARBON DIOXIDE,CO2 26 mmol/L (21-32); CHLORIDE,CL 107 mmol/L (100-108); CREATININE 1.0 mg/dL (0.8-1.3); EST CRCL DRUG DOSING (CG) 86.56 mL/min; ESTIMATED GFR 85 mL/min (>60); GLUCOSE RANDOM 108 mg/dL (74-106); POTASSIUM,K 3.6 mmol/L (3.6-5.2); PROTEIN TOTAL,TP 7.0 g/dL (6.4-8.2); SODIUM,NA 142 mmol/L (140-148)
[2025-01-19 14:35] LABS: APPEARANCE,URINE CLOUDY (CLEAR); GLUCOSE,URINE 500 mg/dL (NEGATIVE); OCCULT BLOOD,URINE SMALL (NEGATIVE)
[2025-01-19 14:40] LABS: SQUAMOUS EPITHELIAL CELLS,UR FEW /HPF
== END 2025-01-19 17:02 | disposition home or self-care (01) ==
LOC: JP.ED 13:30
DX: N39.0 Urinary tract infection, site not specified (principal); N20.0 Calculus of kidney; I10 Essential (primary) hypertension; K21.9 Gastro-esophageal reflux disease without esophagitis; Z88.0 Allergy status to penicillin; Z88.1 Allergy status to other antibiotic agents; Z88.8 Allergy status to other drugs, medicaments and biological substances; Z79.899 Other long term (current) drug therapy; Z90.49 Acquired absence of other specified parts of digestive tract
CPT/HCPCS: 36415; 74176; 80053; 81001; 85025; 86140; 87086; 87088; 87186; 96361; 96365; 99284; J0696; J7030